=== PATIENT | female | born 1935 | race Caucasian/White ===

== ENCOUNTER 2017-12-20 16:51 | Emergency (ER) | payer MEDICARE, OTHER, SELFPAY ==
[2017-12-20 17:15] VITALS: BP 130/77; PULSE 68; RESP 20; TEMP 36.9; O2SAT 96
--- NOTE | 2017-12-20 17:27 | DI.RAD.S_ITS ---
PROCEDURE: XR CHEST 1V INDICATIONS: chest pain TECHNIQUE: One view of the chest was acquired. COMPARISON: Located Within [facility], , CHEST 2 VIEW, 09/05/2010, 13:48. FINDINGS: Surgical changes and devices: None. Lungs and pleura: No pleural effusions or pneumothorax. Lungs are clear. Mediastinum: Mediastinal contours appear normal. Heart size is normal. Bones and chest wall: No suspicious bony lesions. Overlying soft tissues appear unremarkable. IMPRESSION: No acute cardiopulmonary pathology. Dictated by: Lonny Reyes M.D. on 12/20/2017 at 18:27 Approved by: Lonny Reyes M.D. on 12/20/2017 at 18:27
[2017-12-20 17:35] LABS: Add Manual Diff / Slide Review NO; Basophils Percent Auto 0.9 % (0-2); Eosinophils Percent Auto 2.6 % (2-4); Hemoglobin 14.2 g/dL (12.0-16.0); Lymphocytes Percent Auto 28.6 % (25-40); Mean Corpuscular HGB Conc 33.9 % (30-36); Mean Corpuscular Hemoglobin 31.4 PG (26-34); Mean Corpuscular Volume 92.5 fL (80-100); Monocytes Percent Auto 8.2 % (3-14); Neutrophils Absolute Auto 3900 /uL (3000-5900); Neutrophils Percent Auto 59.7 % (50-75); Platelet Count 215 X10^3/uL (150-400); Red Blood Cell Count 4.54 X10^6/uL (4.0-5.2); Red Cell Distribution Width 12.8 % (11.6-14.8); White Blood Cell Count 6.6 X10^3/uL (4.5-11.0)
[2017-12-20 17:37] LABS: Prothrombin Time 10.8 SECONDS (10.1-12.7)
[2017-12-20 17:42] LABS: PTT Partial Thromboplastin Tim 29 SECONDS (26.4-36.2)
[2017-12-20 17:43] LABS: Alanine Aminotransferase 23 IU/L (9-52); Albumin 4.4 g/dL (3.5-5.0); Albumin Globulin Ratio 1.6 (1.0-2.8); Alkaline Phosphatase 54 U/L (38-126); Aspartate Aminotransferase 33 IU/L (14-36); BUN Creatinine Ratio 23.3 (6-22); Bilirubin Total 0.4 mg/dL (0.2-1.3); Blood Urea Nitrogen 21 mg/dL (7-17); Calcium 9.7 mg/dL (8.4-10.2); Carbon Dioxide 31 mmol/L (22-32); Chloride 104 mmol/L (98-107); Creatine Kinase 73 U/L (30-135); Estimated Glomerular Filt Rate 59.9 mL/min (>60); Globulin 2.7 g/dL (1.7-4.1); Glucose 92 mg/dL (80-110); HEMOLYSIS < 15 (0-50); Lipase 135 U/L (23-300); Potassium 4.4 mmol/L (3.4-5.1); Sodium 146 mmol/L (137-145); Total Protein 7.1 g/dL (6.3-8.2)
[2017-12-20 17:57] LABS: Troponin I < 0.012 ng/mL (0.01-0.034)
--- NOTE | 2017-12-20 18:31 | ED.CHESTPAIN ---
HPI - Chest Pain General Chief Complaint: Chest Pain Stated Complaint: CHEST PAINS Time Seen by Provider: 12/20/17 18:05 Source: patient and other (friend) Mode of arrival: ambulatory Limitations: no limitations History of Present Illness HPI narrative: This is an 82-year-old female comes to the emergency department with complaint of chest pain that occurred about 1 o'clock this afternoon. Patient states that she was doing dishes. With a sharp vicelike feeling that lasted just a couple seconds and then resolved. It has not returned. She has not had similar symptoms in the past. She did not have any other symptoms at the same time. She denies any diaphoresis, no lightheadedness, no presyncope or syncope. She denies any shortness of breath. She denies any radiation, migration of her pain. She is not having any head neck or back pain. She did not have any nausea or vomiting. No other GI symptoms. No urinary symptoms. Patient has had some heartburn in the past on and off but it felt completely different. She takes Effexor for depression and takes a baby aspirin once daily. She has a history of breast cancer 1992 that was treated and has had appendectomy and hysterectomy. She denies any prior visits to Cardiology, no prior stress test or heart catheterization. No tobacco use. Rare alcohol no illicit. MD complaint: chest pain Onset (ago): hour(s) Duration: improved Pain location: substernal Pain radiation: none Exacerbating factors: nothing Treatments prior to arrival chest pain: none Related Data Home Medications Medication Instructions Recorded Confirmed aspirin 81 mg PO DAILY #0 07/01/10 12/20/17 calcium carbonate-vitamin D3 600 mg PO TID #0 07/01/10 12/20/17 [Calcium 600 + D(3)] omega 7-nks-pfc-fish oil [Fish Oil] 1,000 iu PO TID #0 07/01/10 12/20/17 cholecalciferol (vitamin D3) 1 cap PO DAILY 12/20/17 12/20/17 [Vitamin D3] flaxseed oil 1 cap PO TID 12/20/17 12/20/17 venlafaxine 1 cap PO TID 12/20/17 12/20/17 Allergies Allergy/AdvReac Type Severity Reaction Status Date / Time No Known Drug Allergies Allergy Verified 12/20/17 17:41 Review of Systems Review of Systems All systems reviewed & are unremarkable except as noted in HPI and below Constitutional Denies chills, Denies fever(s), Denies lethargy and Denies weakness Cardiovascular Reports chest pain, Denies chest pain at rest, Reports chest pain with activity, Denies diaphoresis, Denies syncope, Denies pedal edema, Denies irregular heart rhythm, Denies lightheadedness, Denies radiating jaw, neck or arm pain, Denies palpitations and Denies dyspnea Respiratory Denies cough, Reports pain with cough and Denies dyspnea Gastrointestinal Gastrointestinal: Denies abdominal pain, Denies change in bowel habits, Reports heartburn (feels different from today), Denies diarrhea, Denies nausea and Denies vomiting Genitourinary Denies hematuria, Denies flank pain, Denies urinary incontinence and Denies urinary urgency Neurologic Denies syncope and Denies weakness Endocrine Denies palpitations PFSH Medical History Depression (Acute) H/O: hysterectomy (Acute) Surgical History Hx of appendectomy (Acute) Social History Smoking Status: Never smoker alcohol intake: current substance use type: does not use Exam Initial Vital Signs Initial Vital Signs: Vital Signs Temperature 98.4 F 12/20/17 17:15 Pulse Rate 68 12/20/17 17:15 Respiratory Rate 20 12/20/17 17:15 Blood Pressure 130/77 12/20/17 17:15 Pulse Oximetry 96 12/20/17 17:15 Const General: cooperative and well developed Nutritional Appearance: well nourished Orientation: alert, awake, oriented x3 and not confused Chest Chest: normal inspection of the chest Resp Effort & Inspection: normal respiratory effort, able to speak in complete sentences, no respiratory distress and no use of accessory muscles Auscultation: clear to auscultation bilaterally, no rales, no rhonchi and no wheezes Cardio Rate: regular rate Rhythm: regular rhythm Heart Sounds: S1 normal, S2 normal, no click, no gallops, no murmurs and no rubs Bruits: no abdominal aortic bruits Pulses: normal peripheral pulses GI Inspection: non-distended Palpation: soft, no hepatosplenomegaly, No guarding, hepatomegaly, No pulsatile mass and No tender Auscultation: normal bowel sounds Back/Spine/Pelvis Back: normal to inspection and No back tenderness Extrem Right lower extremity: normal to inspection and normal capillary refill; no cyanosis and no edema Left lower extremity: normal to inspection, full ROM and normal capillary refill; no cyanosis and no edema Scores HEART Score Heart Score history: Slightly Suspicious Heart Score EKG: Non-Specific repolarization disturbance Heart Score Age: > or = 65 years old Heart Score risk factors: No known risk factors Heart Score troponin: < or = to normal limit Heart Score Total: 3 Course Orders Ordered: ED Orders 12/20/17 19:20 Troponin I Stat Discontinued Medications Aspirin (Aspirin Chew) 243 mg PO NOW ONE Stop: 12/20/17 18:21 Last Admin: 12/20/17 18:34 Dose: 243 mg Reevaluation(s) Reevaluation #1: recheck, reviewed labs and CXR. Discussed plan follow-up for repeat troponin at 2:00 a.m. nedra. This would put patient full 6 hr after her onset of chest pain which has since resolved and has had no EKG changes and initial troponin was negative. Time: 18:40 Reevaluation #2: Continues to be chest pain free. Repeat troponin x 2 is negative. Time: 20:30 Vital Signs - 8 hr 12/20/17 20:52 Pulse Rate 63 Respiratory Rate 20 Blood Pressure 148/68 H Pulse Oximetry 95 MDM - Chest Pain Lab Data Attestation: I reviewed the patient's lab results. Result diagrams: 12/20/17 17:00 12/20/17 17:00 Lab Results 12/20/17 12/20/17 12/20/17 Range/Units 17:00 17:00 17:00 WBC 6.6 (4.5-11.0) X10^3/uL RBC 4.54 (4.0-5.2) X10^6/uL Hgb 14.2 (12.0-16.0) g/dL Hct 42.0 (36-46) % MCV 92.5 (80-100) fL MCH 31.4 (26-34) PG MCHC 33.9 (30-36) % RDW 12.8 (11.6-14.8) % Plt Count 215 (150-400) X10^3/uL Neut % (Auto) 59.7 (50-75) % Lymph % (Auto) 28.6 (25-40) % [place] % (Auto) 8.2 (3-14) % Eos % (Auto) 2.6 (2-4) % Baso % (Auto) 0.9 (0-2) % Neut # (Auto) 3900 (1907-0278) /uL PT 10.8 (10.1-12.7) SECONDS INR 1.0 (0.9-1.3) APTT 29 (26.4-36.2) SECONDS Sodium 146 H (137-145) mmol/L Potassium 4.4 (3.4-5.1) mmol/L Chloride 104 (98-107) mmol/L Carbon Dioxide 31 (22-32) mmol/L BUN 21 H (7-17) mg/dL Creatinine 0.90 (0.52-1.04) mg/dL Estimated GFR 59.9 L (>60) mL/min BUN/Creatinine Ratio 23.3 H (6-22) Glucose 92 (80-110) mg/dL Calcium 9.7 (8.4-10.2) mg/dL Total Bilirubin 0.4 (0.2-1.3) mg/dL AST 33 (14-36) IU/L ALT 23 (9-52) IU/L Alkaline Phosphatase 54 (38-126) U/L Total Creatine Kinase 73 (30-135) U/L Troponin I < 0.012 (0.01-0.034) ng/mL Total Protein 7.1 (6.3-8.2) g/dL Albumin 4.4 (3.5-5.0) g/dL Globulin 2.7 (1.7-4.1) g/dL Albumin/Globulin Ratio 1.6 (1.0-2.8) Lipase 135 (23-300) U/L 12/20/17 Range/Units 19:20 WBC (4.5-11.0) X10^3/uL RBC (4.0-5.2) X10^6/uL Hgb (12.0-16.0) g/dL Hct (36-46) % MCV (80-100) fL MCH (26-34) PG MCHC (30-36) % RDW (11.6-14.8) % Plt Count (150-400) X10^3/uL Neut % (Auto) (50-75) % Lymph % (Auto) (25-40) % [place] % (Auto) (3-14) % Eos % (Auto) (2-4) % Baso % (Auto) (0-2) % Neut # (Auto) (9340-3133) /uL PT (10.1-12.7) SECONDS INR (0.9-1.3) APTT (26.4-36.2) SECONDS Sodium (137-145) mmol/L Potassium (3.4-5.1) mmol/L Chloride (98-107) mmol/L Carbon Dioxide (22-32) mmol/L BUN (7-17) mg/dL Creatinine (0.52-1.04) mg/dL Estimated GFR (>60) mL/min BUN/Creatinine Ratio (6-22) Glucose (80-110) mg/dL Calcium (8.4-10.2) mg/dL Total Bilirubin (0.2-1.3) mg/dL AST (14-36) IU/L ALT (9-52) IU/L Alkaline Phosphatase (38-126) U/L Total Creatine Kinase (30-135) U/L Troponin I < 0.012 (0.01-0.034) ng/mL Total Protein (6.3-8.2) g/dL Albumin (3.5-5.0) g/dL Globulin (1.7-4.1) g/dL Albumin/Globulin Ratio (1.0-2.8) Lipase (23-300) U/L Imaging Data Chest x-ray: Radiologist's impression: [address] [address] XRay Report Signed Patient: Elzbieta Darby MMR#: [id number] : 1935cct:[id number] Age/Sex: 82 / FDate of Service: 12/20/17 Loc: ED Accession Number: [id number] Procedure: XR chest 1V Ordering Provider: Boubacar Ivan D.O. PROCEDURE: XR CHEST 1V INDICATIONS: chest pain TECHNIQUE: One view of the chest was acquired. COMPARISON: Located Within [facility], , CHEST 2 VIEW, 09/05/2010, 13:48. FINDINGS: Surgical changes and devices: None. Lungs and pleura: No pleural effusions or pneumothorax. Lungs are clear. Mediastinum: Mediastinal contours appear normal. Heart size is normal. Bones and chest wall: No suspicious bony lesions. Overlying soft tissues appear unremarkable. IMPRESSION: No acute cardiopulmonary pathology. Dictated by: Lonny Reyes M.D. on 12/20/2017 at 18:27 Approved by: Lonny Reyes M.D. on 12/20/2017 at 18:27 ECG Data Attestation: I personally reviewed and interpreted this ECG as follows: Prior ECG tracings: available for review (07/01/2010) Interpretation: Sinus rhythm with a rate of 69 P are of 202, QRS of 101 and QTC of 411. Nonspecific T-wave abnormalities. Q-wave in 3 and AVF. Patient has EKG from July 01, 2010 that has similar findings with Q-waves in 2 3 in AVF and nonspecific ST changes. MDM Narrative Medical decision making narrative: 82-year-old female comes in with complaint of few seconds of chest pain. Which shortly resolved. The patient has not had any additional symptoms since. She has nonspecific T-wave changes. She has minimal risk factor she does take an aspirin daily but otherwise no hypertension, dyslipidemia or other cardiac known issues. Patient had a troponin x2 that are negative. Discussed with patient and plan for discharge home for follow-up with primary care. Discharge Plan Departure Patient Disposition: Home Clinical Impression: Atypical chest pain Discharge Date/Time: 12/20/17 20:53 Interventions: ED Discharge Assessment Last Done: 12/20/17 20:52 Instructions: DI for Atypical Chest Pain Activity Restrictions/Additional Instructions: Follow-up with her primary care provider in the next 2-3 days for recheck. If you have recurrent or worsening symptoms return to the emergency department immediately for re-evaluation. Continue to take you're 81 mg aspirin daily. You may continue your home medications as prescribed. Prescriptions: No Action aspirin 81 mg Tablet,Chewable 81 mg PO DAILY Qty: 0 RF: 0 calcium carbonate-vitamin D3 [Calcium 600 + D(3)] 600 mg calcium- 200 unit Capsule 600 mg PO TID Qty: 0 RF: 0 omega 2-czz-nbd-fish oil [Fish Oil] 1,000 mg (120 mg-180 mg) Capsule 1,000 iu PO TID Qty: 0 RF: 0 venlafaxine 37.5 mg capsule,extended release 24hr 1 cap PO TID RF: 0 cholecalciferol (vitamin D3) [Vitamin D3] 2,000 unit Capsule 1 cap PO DAILY RF: 0 flaxseed oil 1,000 mg Capsule 1 cap PO TID RF: 0
[2017-12-20] MEDS: ASPIRIN 81 MG TAB 243 MG PO (18:34)
[2017-12-20 18:54] VITALS: BP 130/74; PULSE 63; RESP 21; O2SAT 95
[2017-12-20 19:53] LABS: Troponin I < 0.012 ng/mL (0.01-0.034)
[2017-12-20 20:52] VITALS: BP 148/68; PULSE 63; RESP 20; O2SAT 95
== END 2017-12-20 20:53 | disposition home or self-care (01) ==
PROVIDERS: Emergency Medicine; Emergency Provider Emergency Medicine; Family Provider Family Medicine; PCP Family Medicine
DX: R07.89 Other chest pain (principal)
CPT/HCPCS: 36591; 71045; 80053; 82550; 82553; 83690; 84484; 85025; 85610; 85730; 93005; 93010; 99283; 99285

== ENCOUNTER → 2018-01-13 11:35 | Outpatient (CLI) | payer MEDICARE, OTHER, SELFPAY ==
--- NOTE | 2018-01-13 | DI.MG.S_ITS ---
BILATERAL DIGITAL SCREENING MAMMOGRAM 3D/2D WITH CAD POST LUMPECTOMY: 01/13/2018 CLINICAL: Routine screening. Family history of breast cancer. Personal history of breast cancer. Comparison is made to exams dated: 01/05/2017 mammogram, 01/02/2016 mammogram, and 12/27/2014 mammogram - [facility]. The tissue of both breasts is heterogeneously dense. This may lower the sensitivity of mammography. Current study was also evaluated with a Computer Aided Detection (CAD) system. There are benign post operative findings in the left breast. There also are benign vascular calcifications and calcifications in both breasts. No significant masses, calcifications, or other findings are seen in either breast. There has been no significant interval change. IMPRESSION: There is no mammographic evidence of malignancy. A 1 year screening mammogram is recommended.(01/14/2019) This exam was interpreted at Station ID: [id number]. NOTE: For mammograms, a report in lay terms will be sent to the patient. Approximately 15% of breast malignancies will not be visualized mammographically. In the management of a palpable breast mass, a negative mammogram must not discourage biopsy of a clinically suspicious lesion. Electronically Signed By: Sourav mckee/nirali:01/13/2018 17:10:57 letter sent: Normal Exam ACR BI-RADS Category 2: Benign Finding(s) 3342F
== END ==
PROVIDERS: Family Provider Family Medicine; PCP Family Medicine; Visit Provider Family Medicine
DX: Z12.31 Encounter for screening mammogram for malignant neoplasm of breast (principal); Z85.3 Personal history of malignant neoplasm of breast; Z80.3 Family history of malignant neoplasm of breast
CPT/HCPCS: 77063; 77067

== ENCOUNTER → 2019-01-31 09:55 | Outpatient (CLI) | payer MEDICARE, OTHER, SELFPAY ==
--- NOTE | 2019-01-31 | DI.MG.S_ITS ---
BILATERAL DIGITAL SCREENING MAMMOGRAM 3D/2D WITH CAD POST LUMPECTOMY: 01/31/2019 CLINICAL: Routine screening. Family history of breast cancer. Comparison is made to exams dated: 01/13/2018 mammogram, 01/05/2017 mammogram, and 01/02/2016 mammogram - [facility]. The tissue of both breasts is heterogeneously dense. This may lower the sensitivity of mammography. Current study was also evaluated with a Computer Aided Detection (CAD) system. There are benign calcifications in both breasts. There also are benign vascular calcifications in both breasts. Additionally, there are benign post operative findings in the left breast. No significant masses, calcifications, or other findings are seen in either breast. There has been no significant interval change. IMPRESSION: There is no mammographic evidence of malignancy. A 1 year screening mammogram is recommended. This exam was interpreted at Station ID: [id number]. NOTE: For mammograms, a report in lay terms will be sent to the patient. Approximately 15% of breast malignancies will not be visualized mammographically. In the management of a palpable breast mass, a negative mammogram must not discourage biopsy of a clinically suspicious lesion. Electronically Signed By: Shayla mccarthy/nirali:01/31/2019 11:08:48 letter sent: Normal Exam ACR BI-RADS Category 2: Benign Finding(s) 3342F
== END ==
PROVIDERS: Family Provider Family Medicine; PCP Family Medicine; Visit Provider Family Medicine
DX: Z12.31 Encounter for screening mammogram for malignant neoplasm of breast (principal); Z80.3 Family history of malignant neoplasm of breast
CPT/HCPCS: 77063; 77067

== ENCOUNTER → 2019-02-06 14:17 | Outpatient (CLI) | payer MEDICARE, OTHER, SELFPAY ==
--- NOTE | 2019-02-06 | DI.RAD.S_ITS ---
PROCEDURE: XR CERVICAL SPINE 2V OR 3V INDICATIONS: NECK PAIN TECHNIQUE: 3 view(s) of the cervical spine were acquired. COMPARISON: [facility], CERVICAL SPINE 2 OR 3 VIEWS, 04/23/2017, 16:43. FINDINGS: Bones: No fractures or dislocations to the C7 level. The lateral masses of C1 appear intact on the odontoid view. No suspicious bony lesions. Straightening of the normal lordotic curvature. Trace anterolisthesis of C7 on T1 Multilevel degenerative endplate sclerosis and spurring. Diffuse facet arthropathy. Moderate to severe narrowing of the C4-C5, C5-C6 and C6-C7 disc spaces. Soft tissues: No prevertebral soft tissue swelling. IMPRESSION: Multilevel cervical spondylosis, most pronounced at C4-C5, C5-C6 and C6-C7. Overall, no definite interval change since 04/23/17. Dictated by: Mychal Tony M.D. on 02/06/2019 at 16:01 Approved by: Mychal Tony M.D. on 02/06/2019 at 16:03
== END ==
PROVIDERS: PCP Family Medicine; Visit Provider Family Medicine
DX: M54.2 Cervicalgia (principal); M47.812 Spondylosis without myelopathy or radiculopathy, cervical region
CPT/HCPCS: 72040

== ENCOUNTER → 2019-05-11 13:01 | Outpatient (CLI) | payer MEDICARE, OTHER, SELFPAY | PROVIDERS: PCP Family Medicine; Visit Provider Family Medicine | DX: M81.0 Age-related osteoporosis without current pathological fracture (principal); Z78.0 Asymptomatic menopausal state; Z85.3 Personal history of malignant neoplasm of breast; Z87.891 Personal history of nicotine dependence | CPT/HCPCS: 77080 ==

== ENCOUNTER → 2020-02-02 11:50 | Outpatient (CLI) | payer MEDICARE, OTHER, SELFPAY ==
--- NOTE | 2020-02-02 | DI.MG.S_ITS ---
BILATERAL DIGITAL SCREENING MAMMOGRAM 3D/2D WITH CAD: 02/02/2020 CLINICAL: Routine screening. Personal history of left breast cancer. Family history of breast cancer. Comparison is made to exams dated: 01/31/2019 mammogram, 01/13/2018 mammogram, and 01/05/2017 mammogram - [facility]. The tissue of both breasts is heterogeneously dense. This may lower the sensitivity of mammography. Current study was also evaluated with a Computer Aided Detection (CAD) system. There is a focal asymmetry in the right breast at 12 o'clock middle depth. No other significant masses, calcifications, or other findings are seen in either breast. IMPRESSION: INCOMPLETE: NEEDS ADDITIONAL IMAGING EVALUATION The focal asymmetry in the right breast is indeterminate. Additional views with possible ultrasound are recommended. This exam was interpreted at Station ID: [id number]. NOTE: For mammograms, a report in lay terms will be sent to the patient. Approximately 15% of breast malignancies will not be visualized mammographically. In the management of a palpable breast mass, a negative mammogram must not discourage biopsy of a clinically suspicious lesion. Electronically Signed By: Shayla mccarthy/:02/02/2020 12:43:21 letter sent: Additional Imaging Needed ACR BI-RADS Category 0: Incomplete 3340F
== END ==
PROVIDERS: PCP Family Medicine; Referring Provider Family Medicine; Visit Provider Family Medicine
DX: Z12.31 Encounter for screening mammogram for malignant neoplasm of breast (principal); Z85.3 Personal history of malignant neoplasm of breast; Z80.3 Family history of malignant neoplasm of breast
CPT/HCPCS: 77063; 77067

== ENCOUNTER → 2020-02-28 12:22 | Outpatient (CLI) | payer MEDICARE, OTHER, SELFPAY ==
--- NOTE | 2020-02-28 | DI.MG.S_ITS ---
UNILATERAL RIGHT DIGITAL DIAGNOSTIC MAMMOGRAM 3D/2D WITH ADDITIONAL VIEWS: 02/28/2020 CLINICAL: Additional evaluation requested from prior study. Comparison is made to exams dated: 02/02/2020 mammogram, 01/31/2019 mammogram, and 01/13/2018 mammogram - [facility]. The tissue of right breast is heterogeneously dense. This may lower the sensitivity of mammography. The previously seen focal asymmetry in the right breast disperses on spot compression views, compatible with normal fibroglandular breast tissue. No significant masses, calcifications, or other findings are seen in the breast. IMPRESSION: NEGATIVE There is no mammographic evidence of malignancy. A 1 year screening mammogram is recommended. This exam was interpreted at Station ID: [id number]. NOTE: For mammograms, a report in lay terms will be sent to the patient. Approximately 15% of breast malignancies will not be visualized mammographically. In the management of a palpable breast mass, a negative mammogram must not discourage biopsy of a clinically suspicious lesion. Electronically Signed By: Quinton hope/nirali:02/28/2020 13:25:24 letter sent: Normal Exam ACR BI-RADS Category 1: Negative 3341F
== END ==
PROVIDERS: PCP Family Medicine; Referring Provider Family Medicine; Visit Provider Family Medicine
DX: R92.8 Other abnormal and inconclusive findings on diagnostic imaging of breast (principal)
CPT/HCPCS: 77065; G0279

== ENCOUNTER 2020-11-11 11:20 | Inpatient (IN) | payer MEDICARE, OTHER, SELFPAY ==
[2020-11-11] VITALS (13 sets, daily range): BP systolic 101–172; BP diastolic 51–93; PULSE 74–101; RESP 12–29; TEMP 36.2–37.3; O2SAT 90–100; BMI 19.5
--- NOTE | 2020-11-11 12:05 | DI.RAD.S_ITS ---
PROCEDURE: XR CHEST 1V INDICATIONS: chest pain TECHNIQUE: One view of the chest was acquired. COMPARISON: [facility], CR, XR CHEST 1V, 12/20/2017, 18:04. FINDINGS: Surgical changes and devices: None. Lungs and pleura: Lungs are clear. No pleural effusions or pneumothorax. Mediastinum: Mediastinal contours appear normal. Heart size is normal. Bones and chest wall: No suspicious bony lesions. Overlying soft tissues appear unremarkable. IMPRESSION: No acute cardiopulmonary disease process. Dictated by: Leatha Pulido MD, PhD on 11/11/2020 at 12:41 Approved by: Leatha Pulido MD, PhD on 11/11/2020 at 12:41
[2020-11-11 12:18] LABS: Basophils Absolute Auto 0 /uL (0-100); Basophils Percent Auto 0.3 % (0-2); Eosinophils Absolute Auto 0 /uL (0-450); Lymphocytes Absolute Auto 1000 /uL (1100-4500); Lymphocytes Percent Auto 6.3 % (25-40); Mean Corpuscular Volume 93.7 fL (80-100); Monocytes Absolute Auto 500 /uL (0-900); Monocytes Percent Auto 3.1 % (3-14); Neutrophils Absolute Auto 14600 /uL (1500-7000); Neutrophils Percent Auto 90.3 % (50-75); Platelet Count 219 X10^3/uL (150-400); Red Blood Cell Count 1.72 X10^6/uL (4.0-5.2); Red Cell Distribution Width 18.1 % (11.6-14.8); White Blood Cell Count 16.2 X10^3/uL (4.5-11.0)
[2020-11-11 12:20] LABS: Hematocrit 16.1 % (36-46); Hemoglobin 5.1 g/dL (12.0-16.0)
[2020-11-11 12:22] LABS: Alanine Aminotransferase 16 IU/L (<35); Albumin 3.1 g/dL (3.5-5.0); Albumin Globulin Ratio 1.3 (1.0-2.8); Alkaline Phosphatase 48 U/L (38-126); Aspartate Aminotransferase 23 IU/L (14-36); BUN Creatinine Ratio 51.9 (6-22); Bilirubin Total 0.2 mg/dL (0.2-1.3); Blood Urea Nitrogen 41 mg/dL (7-17); Calcium 8.2 mg/dL (8.4-10.2); Carbon Dioxide 19 mmol/L (22-32); Chloride 112 mmol/L (98-107); Creatine Kinase 32 U/L (30-135); Estimated Glomerular Filt Rate > 60.0 mL/min (>60); Globulin 2.3 g/dL (1.7-4.1); Glucose 198 mg/dL (80-110); HEMOLYSIS < 15 (0-50); Lipase 545 U/L (23-300); Potassium 4.2 mmol/L (3.4-5.1); Sodium 139 mmol/L (137-145); Total Protein 5.4 g/dL (6.3-8.2)
--- NOTE | 2020-11-11 12:28 | ED.DIZZY ---
HPI - Dizziness General Chief Complaint: Dizziness Stated Complaint: having falls, shaky, sweaty Time Seen by Provider: 11/11/20 12:28 Source: patient and family (son) Mode of arrival: Wheelchair Limitations: no limitations History of Present Illness HPI Narrative: This is an 85-year-old female comes emergency department feeling lightheaded and shaky particularly since Wednesday. She did have a fall and hit her head. She does take aspirin 81 mg. She saw her primary care who thought she had vertigo and started on some medication. Patient has had some nausea but no vomiting. Some mild headaches. She has felt short of breath. She denies any chest pain or pressure. She denies any abdominal pain. Patient has had black stools for several months. She is not appreciate any bright red blood. She denies any urinary symptoms but did have a UTI about a month ago. She denies any daily thinners. She is on Effexor as well as quetiapine and daily vitamins. 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 She also has a history of breast cancer. She believes she had either EGD or colonoscopy in the last 5 years. No tobacco, she quit drinking any alcohol but was moderate her usage 4 months ago. No illicit. Dr. Villegas is her PCP. Related Data Home Medications Medication Instructions Recorded Confirmed aspirin 81 mg chewable tablet 81 mg PO DAILY #0 07/01/10 11/11/20 calcium carbonate-vitamin D3 600 600 mg PO TID #0 07/01/10 11/11/20 mg calcium-200 unit capsule (Calcium 600 + D(3)) omega 6-jjg-qop-fish oil 1,000 mg 1,000 iu PO TID #0 07/01/10 11/11/20 (120 mg-180 mg) capsule (Fish Oil) cholecalciferol (vitamin D3) 50 1 cap PO DAILY 12/20/17 11/11/20 mcg (2,000 unit) capsule (Vitamin D3) flaxseed oil 1,000 mg capsule 1 cap PO TID 12/20/17 11/11/20 omeprazole 20 mg capsule,delayed 40 mg PO DAILY 12/31/17 11/11/20 release quetiapine 25 mg tablet 25 mg PO DAILY 12/31/17 11/11/20 venlafaxine 37.5 mg 150 mg PO QAM cap 12/31/17 11/11/20 capsule,extended release 24 hr Allergies Allergy/AdvReac Type Severity Reaction Status Date / Time No Known Drug Allergies Allergy Verified 11/11/20 11:44 Review of Systems Review of Systems ROS Unobtainable: All systems reviewed & are unremarkable except as noted in HPI and below Patient History Medical History Depression Surgical History H/O: hysterectomy Hx of appendectomy Social History household members: none Smoking Status: Former smoker alcohol intake: current substance use type: does not use Smoking Status: Former smoker Substance Use Type: does not use Exam Narrative Exam Narrative: GENERAL: Alert and oriented x three, anxious appearing female in mild distress. HEENT: Head normocephalic, atraumatic, EOMI, pupils reactive, patient has pale conjunctiva bilaterally, face symmetric, moist mucous membranes NECK: Supple, full range of motion CARDIOVASCULAR: Regular rate and rhythm without murmurs, rubs or gallops. No JVD. RESPIRATORY: Breath sounds equal bilaterally, no wheezes rales or rhonchi. No tachypnea. ABDOMEN: Soft, nontender. Normoactive bowel sounds all 4 quadrants. No guarding or rebound, rigidity, no mass, patient has a small hemorrhoid which is soft and nontender. Patient has a small amount of stool on guaiac with no other masses appreciated. Patient is stool occult positive. : No CVA tenderness EXTREMITIES: Normal range of motion, no clubbing or edema. Neurovascularly intact NEUROLOGICAL: Cranial nerves II through XII grossly intact. Moving all extremities SKIN: Warm, dry, no petechiae, no rashes or lesions. Initial Vital Signs Initial Vital Signs: Vital Signs Temperature 97.8 F 11/11/20 11:38 Pulse Rate 101 H 11/11/20 11:38 Respiratory Rate 12 11/11/20 11:38 Blood Pressure 172/93 H 11/11/20 11:38 Pulse Oximetry 93 11/11/20 11:38 Course Orders Ordered: ED Orders 11/11/20 11:44 EKG-12 Lead Stat 11/11/20 12:00 Complete Blood Count AUTO DIFF Stat Comprehensive Metabolic Panel Stat Lipase Stat Partial Thromboplastin Time Stat Prothrombin Time INR Stat Troponin & CK Cardiac Panel Stat 11/11/20 12:05 XR chest 1V Stat 11/11/20 12:20 Urinalysis and Microscopic Stat 11/11/20 12:33 Packed Cells Stat Type and Screen Stat 11/11/20 12:57 CT head/brain wo con Stat 11/11/20 13:30 COVID19 - ADMIT (FLAP MAKER swab/PCR) Stat Acetaminophen (Acetaminophen 325 Mg Tablet) 650 mg PO Q6HR ERNESTO Lactated Ringer's (Lactated Ringers) 1,000 mls @ 100 mls/hr IV CONT ERNESOT Naloxone HCl (Naloxone 0.4 Mg/Ml Vial) 0.2 mg IV Q2MIN PRN PRN Reason: Opiate Reversal Ondansetron HCl (Ondansetron 4 Mg/2 Ml Inj) 4 mg IV Q8HR PRN PRN Reason: Nausea And Vomiting Pantoprazole Sodium (Pantoprazole 40 Mg Vial) 40 mg IV DAILY [facility] Quetiapine Fumarate (Quetiapine 25 Mg Tablet) 25 mg PO BID ERNESTO Venlafaxine HCl (Venlafaxine Er 75 Mg Cap) 150 mg PO DAILY [facility] Last Admin: 11/11/20 15:28 Dose: Not Given Documented by: EJ Discontinued Medications Lorazepam (Lorazepam 0.5 Mg Tablet) 0.5 mg PO NOW ONE Stop: 11/11/20 12:59 Last Admin: 11/11/20 13:19 Dose: 0.5 mg Documented by: ATAYLOR Pantoprazole Sodium (Pantoprazole 40 Mg Vial) 80 mg IV NOW ONE Stop: 11/11/20 12:59 Last Admin: 11/11/20 13:19 Dose: 80 mg Documented by: ATAYLOR Consultations Consultation #1: Spoke with Dr. Mcclendon accepts for admission. Awaiting head CT is patient did have a fall in the last week. If this is negative plan for admission. Patient has been given Protonix 2 units are ordered for transfusion which patient is agreeable to and consultation to General surgery is pending Consultation #2: Dr. Shea, for General surgery. He is happy to consult with the patient. Case was reviewed. Vital Signs Vital signs: Vital Signs - 8 hr 11/11/20 11:38 11/11/20 12:31 11/11/20 13:00 Temperature 97.8 F Pulse Rate 101 H 95 H 93 H Respiratory Rate 12 20 27 H Blood Pressure 172/93 H Pulse Oximetry 93 99 90 L MDM - Dizziness Lab Data Result diagrams: 11/11/20 12:00 11/11/20 12:00 Labs: Lab Results 11/11/20 11/11/20 11/11/20 Range/Units 12:00 12:00 12:00 WBC 16.2 H (4.5-11.0) X10^3/uL RBC 1.72 L (4.0-5.2) X10^6/uL Hgb 5.1 L* (12.0-16.0) g/dL Hct 16.1 L* (36-46) % MCV 93.7 (80-100) fL MCH 30.0 (26-34) PG MCHC 32.0 (30-36) % RDW 18.1 H (11.6-14.8) % Plt Count 219 (150-400) X10^3/uL Neut % (Auto) 90.3 H (50-75) % Lymph % (Auto) 6.3 L (25-40) % [place] % (Auto) 3.1 (3-14) % Eos % (Auto) 0.0 L (2-4) % Baso % (Auto) 0.3 (0-2) % Neut # (Auto) 68644 H (3992-2479) /uL Lymph # (Auto) 1000 L (2062-0363) /uL [place] # (Auto) 500 (0-900) /uL Eos # (Auto) 0 (0-450) /uL Baso # (Auto) 0 (0-100) /uL PT 12.2 (10.1-12.7) SECONDS INR 1.1 (0.9-1.3) APTT 24 L D (26.4-36.2) SECONDS Sodium 139 (137-145) mmol/L Potassium 4.2 (3.4-5.1) mmol/L Chloride 112 H (98-107) mmol/L Carbon Dioxide 19 L (22-32) mmol/L BUN 41 H (7-17) mg/dL Creatinine 0.79 (0.52-1.04) mg/dL Estimated GFR > 60.0 (>60) mL/min BUN/Creatinine Ratio 51.9 H (6-22) Glucose 198 H (80-110) mg/dL Calcium 8.2 L (8.4-10.2) mg/dL Total Bilirubin 0.2 (0.2-1.3) mg/dL AST 23 (14-36) IU/L ALT 16 (<35) IU/L Alkaline Phosphatase 48 (38-126) U/L Total Creatine Kinase 32 (30-135) U/L CK-MB (CK-2) TNP CK-MB (CK-2) Rel Index TNP Troponin I < 0.012 (0.01-0.034) ng/mL Total Protein 5.4 L (6.3-8.2) g/dL Albumin 3.1 L (3.5-5.0) g/dL Globulin 2.3 (1.7-4.1) g/dL Albumin/Globulin Ratio 1.3 (1.0-2.8) Lipase 545 H (23-300) U/L Blood Type Antibody Screen Crossmatch 11/11/20 Range/Units 12:33 WBC (4.5-11.0) X10^3/uL RBC (4.0-5.2) X10^6/uL Hgb (12.0-16.0) g/dL Hct (36-46) % MCV (80-100) fL MCH (26-34) PG MCHC (30-36) % RDW (11.6-14.8) % Plt Count (150-400) X10^3/uL Neut % (Auto) (50-75) % Lymph % (Auto) (25-40) % [place] % (Auto) (3-14) % Eos % (Auto) (2-4) % Baso % (Auto) (0-2) % Neut # (Auto) (9675-5680) /uL Lymph # (Auto) (1256-2247) /uL [place] # (Auto) (0-900) /uL Eos # (Auto) (0-450) /uL Baso # (Auto) (0-100) /uL PT (10.1-12.7) SECONDS INR (0.9-1.3) APTT (26.4-36.2) SECONDS Sodium (137-145) mmol/L Potassium (3.4-5.1) mmol/L Chloride (98-107) mmol/L Carbon Dioxide (22-32) mmol/L BUN (7-17) mg/dL Creatinine (0.52-1.04) mg/dL Estimated GFR (>60) mL/min BUN/Creatinine Ratio (6-22) Glucose (80-110) mg/dL Calcium (8.4-10.2) mg/dL Total Bilirubin (0.2-1.3) mg/dL AST (14-36) IU/L ALT (<35) IU/L Alkaline Phosphatase (38-126) U/L Total Creatine Kinase (30-135) U/L CK-MB (CK-2) CK-MB (CK-2) Rel Index Troponin I (0.01-0.034) ng/mL Total Protein (6.3-8.2) g/dL Albumin (3.5-5.0) g/dL Globulin (1.7-4.1) g/dL Albumin/Globulin Ratio (1.0-2.8) Lipase (23-300) U/L Blood Type O Positive Antibody Screen Negative Crossmatch See Detail Imaging Data CT scan - head: Radiologist's Impression: [address] Scan ReportSigned Patient: Elzbieta Darby [facility]#: [id number]: 6Acct:[id number]/Sex: 85 / FDate of Service: 11/11/20Loc: [id number] Number: [id number] Procedure: CT head/brain wo con Ordering Provider: Diana Mccauley D.O. PROCEDURE: CT HEAD/BRAIN WO CON INDICATIONS: fall on asa TECHNIQUE: Noncontrast 4.5 mm thick angled axial sections acquired from the foramen magnum to the vertex, with coronal and sagittal reformats. For radiation dose reduction, the following was used: automated exposure control, adjustment of mA and/or kV according to patient size. COMPARISON: [facility], CT, HEAD WITHOUT CONTRAST, 07/23/2011, 10:21. FINDINGS: Image quality: Excellent. CSF spaces: Basal cisterns are patent. No extra-axial fluid collections. The ventricles are symmetric in size and shape. Brain: No intracranial bleeds or masses. There is cerebral volume loss for age, with resultant ventricular and sulcal prominence. There are periventricular and deep white matter chronic small vessel ischemic changes. There is intracranial internal carotid artery atherosclerosis. Skull and face: Calvarium and visualized facial bones appear intact, without suspicious lesions. 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 Sinuses: Visualized sinuses and mastoids are clear. IMPRESSION: No acute intracranial finding. Dictated by: Jose Blackwell M.D. on 11/11/2020 at 13:27 Approved by: Jose Blackwell M.D. on 11/11/2020 at 13:29 Chest x-ray: Radiologist's Impression: [address] [id number] ReportSigned Patient: Elzbieta Darby MMR#: [id number]: 6Acct:[id number]/Sex: 85 / FDate of Service: 11/11/20Loc: EDAccession Number: [id number] Procedure: XR chest 1V Ordering Provider: Diana Mccauley D.O. PROCEDURE: XR CHEST 1V INDICATIONS: chest pain TECHNIQUE: One view of the chest was acquired. COMPARISON: [facility], , XR CHEST 1V, 12/20/2017, 18:04. FINDINGS: Surgical changes and devices: None. Lungs and pleura: Lungs are clear. No pleural effusions or pneumothorax. Mediastinum: Mediastinal contours appear normal. Heart size is normal. Bones and chest wall: No suspicious bony lesions. Overlying soft tissues appear unremarkable. IMPRESSION: No acute cardiopulmonary disease process. Dictated by: Leatha Pulido MD, PhD on 11/11/2020 at 12:41 Approved by: Leatha Pulido MD, PhD on 11/11/2020 at 12:41 ECG Data Interpretation: Sinus rhythm rate 90 7p are 156 QRS 76 and QTC of 480. No acute ST elevation. Nonspecific change but patient has some depression in V3 through V6. Patient has prior EKG from December 2017 and does appear to have some MDM Narrative Medical decision making narrative: Female comes to the emergency department with lightheadedness and shakiness with near-syncope. Patient was found to have hemoglobin of 5 her last comparison was normal in 2018. After discussion she has had black stools for some time and likely has had a slow GI bleed. Patient does have some EKG change but negative troponin with no other symptoms such as chest pain. She has had some shortness of breath. Patient's was transfused here in the supervisor partial denture department CT was ordered as she has hit her head and there was some confusion about whether she takes an aspirin daily. Patient was accepted by Dr. Mcclendon and consultation is planned with Dr. Shea who has been notified. Critical Care Time Critical Care Time Critical Care Time: Yes Total Critical Care Time: 45 Attestation: The high probability of a clinically significant, sudden or life threatening deterioration of the [] system(s) required my full and direct attention, intervention and personal management. The aggregate critical care time was [45] minutes. This time is in addition to time spent performing reported procedures but includes the following: [x] Data Review and interpretation [x] Patient assessment and monitoring of vital signs [x] Documentation [x] Medication orders and management Discharge Plan Departure Patient Disposition: Admitted As Inpatient Clinical Impression: GI bleed Admit Date/Time: 11/11/20 13:12 Admit Provider: Osman Mcclendon
[2020-11-11 12:30] LABS: INR 1.1 (0.9-1.3); Prothrombin Time 12.2 SECONDS (10.1-12.7)
[2020-11-11 12:33] LABS: PTT Partial Thromboplastin Tim 24 SECONDS (26.4-36.2)
[2020-11-11 12:34] LABS: Troponin I < 0.012 ng/mL (0.01-0.034)
--- NOTE | 2020-11-11 12:57 | DI.CT.S_ITS ---
PROCEDURE: CT HEAD/BRAIN WO CON INDICATIONS: fall on asa TECHNIQUE: Noncontrast 4.5 mm thick angled axial sections acquired from the foramen magnum to the vertex, with coronal and sagittal reformats. For radiation dose reduction, the following was used: automated exposure control, adjustment of mA and/or kV according to patient size. COMPARISON: [facility], CT, HEAD WITHOUT CONTRAST, 07/23/2011, 10:21. FINDINGS: Image quality: Excellent. CSF spaces: Basal cisterns are patent. No extra-axial fluid collections. The ventricles are symmetric in size and shape. Brain: No intracranial bleeds or masses. There is cerebral volume loss for age, with resultant ventricular and sulcal prominence. There are periventricular and deep white matter chronic small vessel ischemic changes. There is intracranial internal carotid artery atherosclerosis. Skull and face: Calvarium and visualized facial bones appear intact, without suspicious lesions. 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 Sinuses: Visualized sinuses and mastoids are clear. IMPRESSION: No acute intracranial finding. Dictated by: Jose Balckwell M.D. on 11/11/2020 at 13:27 Approved by: Jose Blackwell M.D. on 11/11/2020 at 13:29
--- NOTE | 2020-11-11 12:57 | PC.NURSE ---
Blood transfusion consent signed and on the chart.
[2020-11-11 13:04] LABS: Add Manual Diff / Slide Review NO
[2020-11-11] MEDS: PANTOPRAZOLE 40 MG VIAL 80 MG IV (13:19)
[2020-11-11] MEDS: LORazepam 0.5 MG TABLET PO (13:19)
[2020-11-11 14:25] LABS: COVID19 - ADMIT (NP swab/PCR) Negative (Negative)
--- NOTE | 2020-11-11 15:17 | PC.NURSE ---
Admit note: Patient admitted to room 224, awake, alert, and pleasantly calm. Required to be transferred via slider board due to generalized weakness. No C/O dizziness or pain. Received with 1 unit of PRBC transfusing to left AC. VSS and afebrile. Oriented to room, environment, and plan of care. High fall precautions initiated. Tele and SCDs placed on arrival, remains NPO (awaiting general surgery consult). Report given to oncoming RN Nica, notified regarding need for U/A and Occult blood as it becomes available.
--- NOTE | 2020-11-11 17:41 | P.CONS_ITS ---
History of Present Illness Consult details Date Patient Seen: 11/11/20 Time Patient Seen: 17:41 Chief complaint: having falls, shaky, sweaty Narrative: 85-year-old female on aspirin admitted for anemia. She was feeling lightheaded and dizzy with associated epigastric discomfort, in the emergency room HGB 5 from 14 several years ago. Describes melanotic stools no bright red blood per rectum no history of peptic ulcer disease, diverticulosis or intestinal malignancy mild nausea no hematemesis. Reports having a normal colonoscopy within the past 5 years, no prior EGD. Currently receiving 1 unit of packed red blood cells with plan for 2nd. Meds Home Medications and Allergies Home Medications Medication Instructions Recorded Confirmed Type aspirin 81 mg chewable tablet 81 mg PO DAILY #0 07/01/10 11/11/20 History calcium carbonate-vitamin D3 600 600 mg PO TID #0 07/01/10 11/11/20 History mg calcium-200 unit capsule (Calcium 600 + D(3)) omega 2-woo-rhs-fish oil 1,000 mg 1,000 iu PO TID #0 07/01/10 11/11/20 History (120 mg-180 mg) capsule (Fish Oil) cholecalciferol (vitamin D3) 50 1 cap PO DAILY 12/20/17 11/11/20 History mcg (2,000 unit) capsule (Vitamin D3) flaxseed oil 1,000 mg capsule 1 cap PO TID 12/20/17 11/11/20 History omeprazole 20 mg capsule,delayed 40 mg PO DAILY 12/31/17 11/11/20 History release quetiapine 25 mg tablet 25 mg PO DAILY 12/31/17 11/11/20 History venlafaxine 37.5 mg 150 mg PO QAM cap 12/31/17 11/11/20 History capsule,extended release 24 hr Allergies Allergy/AdvReac Type Severity Reaction Status Date / Time No Known Drug Allergies Allergy Verified 11/11/20 11:44 Review of Systems Review of Systems ROS: Yes All systems reviewed with the patient and are negative except as otherwise documented Exam Vital Signs (past 8 hours): - 11/11/20 11:38 11/11/20 12:31 11/11/20 13:00 Temperature 97.8 F Pulse Rate 101 H 95 H 93 H Respiratory Rate 12 20 27 H Blood Pressure 172/93 H Pulse Oximetry 93 99 90 L 11/11/20 13:30 11/11/20 14:00 11/11/20 14:01 Temperature Pulse Rate 87 82 80 Respiratory Rate 22 27 H 29 H Blood Pressure 123/58 L 101/61 111/54 L Pulse Oximetry 100 100 11/11/20 14:03 11/11/20 14:20 11/11/20 15:02 Temperature 98.1 F 98 F 97.2 F L Pulse Rate 79 83 81 Respiratory Rate 16 20 19 Blood Pressure 111/54 L 114/53 L 123/66 Pulse Oximetry 100 Oxygen Delivery Method Room Air Narrative Exam Narrative: GENERAL-well developed elderly woman no acute distress HEENT-no scleral icterus, hearing intact NECK-no JVD, trachea midline CVS- regular rate, no peripheral edema RESP-unlabored respiratory effort, no audible wheezing GI-soft, mild epigastric tenderness MSK-no cyanosis or clubbing, extremities without deformity SKIN-warm, dry NEURO-alert and oriented, no focal deficits PYSCH-Appropriate mood and affect Objective Labs Result Diagrams: 11/11/20 12:00 11/11/20 12:00 Labs: Laboratory Results - last 24 hr 11/11/20 11/11/20 11/11/20 12:00 12:00 12:00 WBC 16.2 H RBC 1.72 L Hgb 5.1 L* Hct 16.1 L* MCV 93.7 MCH 30.0 MCHC 32.0 RDW 18.1 H Plt Count 219 Neut % (Auto) 90.3 H Lymph % (Auto) 6.3 L [place] % (Auto) 3.1 Eos % (Auto) 0.0 L Baso % (Auto) 0.3 Neut # (Auto) 84539 H Lymph # (Auto) 1000 L [place] # (Auto) 500 Eos # (Auto) 0 Baso # (Auto) 0 PT 12.2 INR 1.1 APTT 24 L D Sodium 139 Potassium 4.2 Chloride 112 H Carbon Dioxide 19 L BUN 41 H Creatinine 0.79 Estimated GFR > 60.0 BUN/Creatinine Ratio 51.9 H Glucose 198 H Calcium 8.2 L Total Bilirubin 0.2 AST 23 ALT 16 Alkaline Phosphatase 48 Total Creatine Kinase 32 CK-MB (CK-2) TNP CK-MB (CK-2) Rel Index TNP Troponin I < 0.012 Total Protein 5.4 L Albumin 3.1 L Globulin 2.3 Albumin/Globulin Ratio 1.3 Lipase 545 H SARS-CoV-2 (PCR) Blood Type Antibody Screen Crossmatch 11/11/20 11/11/20 12:33 13:30 WBC RBC Hgb Hct MCV MCH MCHC RDW Plt Count Neut % (Auto) Lymph % (Auto) [place] % (Auto) Eos % (Auto) Baso % (Auto) Neut # (Auto) Lymph # (Auto) [place] # (Auto) Eos # (Auto) Baso # (Auto) PT INR APTT Sodium Potassium Chloride Carbon Dioxide BUN Creatinine Estimated GFR BUN/Creatinine Ratio Glucose Calcium Total Bilirubin AST ALT Alkaline Phosphatase Total Creatine Kinase CK-MB (CK-2) CK-MB (CK-2) Rel Index Troponin I Total Protein Albumin Globulin Albumin/Globulin Ratio Lipase SARS-CoV-2 (PCR) Negative Blood Type O Positive Antibody Screen Negative Crossmatch See Detail Assessment & Plan Assessment and plan (1) GI bleed: Status: Acute Assessment & Plan narrative: 85-year-old female on aspirin admitted with GI bleed hemodynamically stable. Initial Hgb 5 baseline 14, having melanotic stool. Presumed upper source. -clear liquid diet NPO after midnight -transfuse as needed -plan for EGD tomorrow with anaesthesia provider. If no source identified, prep for colonoscopy
--- NOTE | 2020-11-11 19:25 | PM.HP.1 ---
History of Present Illness History of Present Illness Date Patient Seen: 11/11/20 Time Patient Seen: 12:45 Chief complaint: having falls, shaky, sweaty Narrative: Patient is a 85-year-old female well known to Dr. Villegas who presents for evaluation of dizziness and lightheadedness. Apparently patient is been slowly feeling dizzy and lightheaded over period of time. Fatigued. No other changes. Patient has noted she had black tarry stools maybe the last month it is really unclear. She was seen I guess on Wednesday at a urgent care center in [place] and was told she had labyrinthitis. She progressed through the weekend until she could hardly get up out of bed. She has had no chest pain. No shortness of breath. No abdominal pain. She does not have any change in bowel movements except with her black tarry stools. She has had no other significant change no fevers no chills no urinary symptoms. No nausea or vomiting. She has not been eating as well she has been in the past. Apparently she has been losing some weight. According to her son. But there has been no other changes. She had a normal colonoscopy 5 years ago no other significant problem. Past medical history is significant for anxiety, hyperlipidemia dyspepsia, breast cancer status post left lumpectomy with treatment with radiation and tamoxifen, Past surgical history total hysterectomy with BSO secondary to fibroids, polypectomy, left lumpectomy, appendectomy Family history: Father with heart disease, 2 brothers with cancer of unknown etiology in the 80s Social history: . Good family support. Patient History Medical History Depression Surgical History H/O: hysterectomy Hx of appendectomy Family & Social History Social History: household members none Prior Living Arrangements House Safety & Behavioral: Feels Safe in Current Yes Environment Been Physically Hurt or No Threatened By a Person Tobacco & Substance use: Smoking Status Former smoker alcohol intake current Substance Use Type does not use Meds Home Medications and Allergies Home Medications Medication Instructions Recorded Confirmed Type aspirin 81 mg chewable tablet 81 mg PO DAILY #0 07/01/10 11/11/20 History calcium carbonate-vitamin D3 600 600 mg PO TID #0 07/01/10 11/11/20 History mg calcium-200 unit capsule (Calcium 600 + D(3)) omega 3-uyt-ieh-fish oil 1,000 mg 1,000 iu PO TID #0 07/01/10 11/11/20 History (120 mg-180 mg) capsule (Fish Oil) cholecalciferol (vitamin D3) 50 1 cap PO DAILY 12/20/17 11/11/20 History mcg (2,000 unit) capsule (Vitamin D3) flaxseed oil 1,000 mg capsule 1 cap PO TID 12/20/17 11/11/20 History omeprazole 20 mg capsule,delayed 40 mg PO DAILY 12/31/17 11/11/20 History release quetiapine 25 mg tablet 25 mg PO DAILY 12/31/17 11/11/20 History venlafaxine 37.5 mg 150 mg PO QAM cap 12/31/17 11/11/20 History capsule,extended release 24 hr Allergies Allergy/AdvReac Type Severity Reaction Status Date / Time No Known Drug Allergies Allergy Verified 11/11/20 11:44 Review of Systems Review of Systems Narrative: All negative except for H&P please see their Exam Vital Signs (past 8 hours): - 11/11/20 11:38 11/11/20 12:31 11/11/20 13:00 Temperature 97.8 F Pulse Rate 101 H 95 H 93 H Respiratory Rate 12 20 27 H Blood Pressure 172/93 H Pulse Oximetry 93 99 90 L 11/11/20 13:30 11/11/20 14:00 11/11/20 14:01 Temperature Pulse Rate 87 82 80 Respiratory Rate 22 27 H 29 H Blood Pressure 123/58 L 101/61 111/54 L Pulse Oximetry 100 100 11/11/20 14:03 11/11/20 14:20 11/11/20 15:02 Temperature 98.1 F 98 F 97.2 F L Pulse Rate 79 83 81 Respiratory Rate 16 20 19 Blood Pressure 111/54 L 114/53 L 123/66 Pulse Oximetry 100 11/11/20 17:46 11/11/20 17:50 Temperature 98.2 F 98.2 F Pulse Rate 76 76 Respiratory Rate 18 18 Blood Pressure 106/51 L 106/51 L Pulse Oximetry Oxygen Delivery Method Room Air Narrative Exam Narrative: Alert female fatigued in appearance anxious in no acute distress. Bulbar conjunctiva pale. Mucous membranes dry. Neck supple without adenopathy. Lungs are clear. Heart regular rate and rhythm without murmur. Abdomen is soft positive bowel sounds no pedis pain megaly no masses. Rectal exam per emergency room positive guaiac. Black stool. Extremities without cyanosis clubbing edema. Neurologic exam is unremarkable. Skin is pale but no rash Objective Labs Result Diagrams: 11/11/20 12:00 11/11/20 12:00 Labs: Laboratory Results - last 24 hr 11/11/20 11/11/20 11/11/20 12:00 12:00 12:00 WBC 16.2 H RBC 1.72 L Hgb 5.1 L* Hct 16.1 L* MCV 93.7 MCH 30.0 MCHC 32.0 RDW 18.1 H Plt Count 219 Neut % (Auto) 90.3 H Lymph % (Auto) 6.3 L [place] % (Auto) 3.1 Eos % (Auto) 0.0 L Baso % (Auto) 0.3 Neut # (Auto) 11447 H Lymph # (Auto) 1000 L [place] # (Auto) 500 Eos # (Auto) 0 Baso # (Auto) 0 PT 12.2 INR 1.1 APTT 24 L D Sodium 139 Potassium 4.2 Chloride 112 H Carbon Dioxide 19 L BUN 41 H Creatinine 0.79 Estimated GFR > 60.0 BUN/Creatinine Ratio 51.9 H Glucose 198 H Calcium 8.2 L Total Bilirubin 0.2 AST 23 ALT 16 Alkaline Phosphatase 48 Total Creatine Kinase 32 CK-MB (CK-2) TNP CK-MB (CK-2) Rel Index TNP Troponin I < 0.012 Total Protein 5.4 L Albumin 3.1 L Globulin 2.3 Albumin/Globulin Ratio 1.3 Lipase 545 H SARS-CoV-2 (PCR) Blood Type Antibody Screen Crossmatch 11/11/20 11/11/20 12:33 13:30 WBC RBC Hgb Hct MCV MCH MCHC RDW Plt Count Neut % (Auto) Lymph % (Auto) [place] % (Auto) Eos % (Auto) Baso % (Auto) Neut # (Auto) Lymph # (Auto) [place] # (Auto) Eos # (Auto) Baso # (Auto) PT INR APTT Sodium Potassium Chloride Carbon Dioxide BUN Creatinine Estimated GFR BUN/Creatinine Ratio Glucose Calcium Total Bilirubin AST ALT Alkaline Phosphatase Total Creatine Kinase CK-MB (CK-2) CK-MB (CK-2) Rel Index Troponin I Total Protein Albumin Globulin Albumin/Globulin Ratio Lipase SARS-CoV-2 (PCR) Negative Blood Type O Positive Antibody Screen Negative Crossmatch See Detail Assessment & Plan Assessment & Plan narrative: GI bleed. Presumed upper secondary to symptoms. Consult surgeons. Appreciate their input. Hopefully will figure it out tomorrow. Blood loss anemia. Significant blood loss. 2 units given today. It appears as if this is slow will loss and we will follow closely. Hemodynamically is stable will see how far she gets after her next unit and will give blood if she is less than 22 Anxiety. Big issue. Will continue her current meds. Will continue to give support. Hypotension. Mild. Should improve the fluids and blood. Code status full at this time but had discussion patient is not fully reversed in this but at this point will be food full code. DVT prophylaxis sequential hose. Unable to use Lovenox secondary to bleeding risk. Disposition. Suspect will be here with several days but will see what happens and will depend on her findings at EGD.
[2020-11-11] MEDS: LACTATED RINGERS 1,000 ML 100 ML IV (20:34)
[2020-11-11] MEDS: QUETIAPINE 25 MG TABLET PO (20:35)
[2020-11-11 21:17] LABS: Hematocrit 24.4 % (36-46); Hemoglobin 8.2 g/dL (12.0-16.0)
--- NOTE | 2020-11-11 21:59 | PC.NURSE ---
Pt recieved 2U PRBC's this evening, H/H after 8.2/24.4 IVF infusing as per orders Pt states she is feeeling a little better. NPO @ MN for scope in am Call light w/in reach, bed alarm on for pt safety. Continue w/plan of care.
[2020-11-12] VITALS (23 sets, daily range): BP systolic 106–153; BP diastolic 51–97; PULSE 65–82; RESP 14–32; TEMP 36.3–37.5; O2SAT 94–100
--- NOTE | 2020-11-12 | PATH_ITS ---
[facility] Accession Number: [id number] . 01 Material submitted: . gastrointestinal site - GASTRIC MASS . 02 Diagnosis: Stomach, Mass, Biopsy: Superficial fragments of gastric mucosa, some with cautery/crush artifact and focally crowded capillaries; please see comment. Negative for Helicobacter by immunohistochemistry. Negative for intestinal metaplasia. Negative for dysplasia and malignancy. . [facility] 11/15/2020 1350 Local . 02 Comment: The impression of a mass is noted. Biopsies are predominately superficial gastric mucosa with no significant diagnostic abnormality. There is a small focus of crowded small capillaries which could be compatible with healed/healing erosion, granulation tissue, or hemangioma in the appropriate clinical setting. An unsampled neoplasm could remain a consideration, in the appropriate clinical and radiologic setting. . 02 Electronically signed: . Ghazal Perez MD, Pathologist NPI- [id number] . 01 Gross description: . GASTRIC MASS: Received in formalin are multiple fragment(s) of [place], soft tissue measuring 1.8 x 0.3 x 0.1 cm in aggregate submitted entirely in 1 cassette(s) /[facility] 11/13/2020 0345 Local . 02 Microscopic: . Additional deeper levels were examined. An immunohistochemical stain was performed to evaluate for Helicobacter organisms and is negative. The control stain showed appropriate reactivity. . * This test was developed and its performance characteristics determined by [employer]. It has not been cleared or approved by the U.S. Food and Drug Administration. The FDA has determined that such clearance or approval is not necessary. This test is used for clinical purposes. It should not be regarded as investigational or for research. . 02 Pathologist provided ICD-10: R19.00 . 02 CPT . 037957, [id number] Performed at: 01 [facility] [address] [place] [address], [place], [place] [id number] MD Sourav Silveira MD Phone: [phone] Performed at: 02 [facility] [address] [place], [place] [id number] MD Ghazal Perez MD Phone: [phone]
[2020-11-12] MEDS: ACETAMINOPHEN 325 MG TABLET 650 MG PO ×3 (00:10→23:49)
[2020-11-12 05:11] LABS: Alanine Aminotransferase 11 IU/L (<35); Albumin 2.2 g/dL (3.5-5.0); Albumin Globulin Ratio 1.1 (1.0-2.8); Alkaline Phosphatase 35 U/L (38-126); Aspartate Aminotransferase 19 IU/L (14-36); BUN Creatinine Ratio 42.4 (6-22); Bilirubin Total 0.7 mg/dL (0.2-1.3); Blood Urea Nitrogen 28 mg/dL (7-17); Calcium 7.7 mg/dL (8.4-10.2); Carbon Dioxide 24 mmol/L (22-32); Chloride 115 mmol/L (98-107); Estimated Glomerular Filt Rate > 60.0 mL/min (>60); Glucose 89 mg/dL (80-110); HEMOLYSIS < 15 (0-50); Potassium 4.1 mmol/L (3.4-5.1); Sodium 139 mmol/L (137-145); Total Protein 4.2 g/dL (6.3-8.2)
[2020-11-12 05:12] LABS: Appearance Urine UA CLEAR; Bacteria Urine None Seen; Bilirubin Urine UA NEGATIVE (NEGATIVE); Color Urine UA YELLOW; Glucose Urine UA NEGATIVE (Negative); Ketones Urine UA NEGATIVE (NEGATIVE); Leukocyte Esterase Urine UA NEGATIVE (NEGATIVE); Nitrite Urine UA NEGATIVE (Negative); Occult Blood Urine UA NEGATIVE (Negative); Protein Urine UA NEGATIVE (Negative); RBC Urine None Seen (0-5/HPF); Urobilinogen Urine UA 0.2 E.U./dL (0.2); WBC Urine None Seen (0-5/HPF)
[2020-11-12 05:27] LABS: Culture Indicated Urine Cult Not Indicated; Renal Epithelial Cells Urine 0-1/HPF (0-1/HPF)
[2020-11-12] MEDS: LACTATED RINGERS 1,000 ML 100 ML IV (07:34)
[2020-11-12 08:40] LABS: Hematocrit 20.8 % (36-46)
[2020-11-12 08:42] LABS: Hemoglobin 6.9 g/dL (12.0-16.0)
[2020-11-12] MEDS: PANTOPRAZOLE 40 MG VIAL IV (10:23)
--- NOTE | 2020-11-12 13:16 | P.PN_ITS ---
Subjective Subjective Date Patient Seen: 11/12/20 Time Patient Seen: 08:00 Interval history: Patient was seen in follow-up of her GI bleed. She has had no abdominal pain. No nausea no vomiting and otherwise is feeling well. Exam Vital Signs (past 8 hours): - 11/12/20 08:00 11/12/20 10:55 11/12/20 10:59 Temperature 98.7 F 99.0 F 98.8 F Pulse Rate 74 71 70 Respiratory Rate 18 16 16 Blood Pressure 107/57 L 108/56 L 108/60 Pulse Oximetry 99 11/12/20 11:10 11/12/20 13:06 Temperature 98.6 F 99.5 F Pulse Rate 73 71 Respiratory Rate 15 16 Blood Pressure 113/57 L 106/60 Pulse Oximetry Oxygen Delivery Method Room Air Oxygen Flow Rate 0 Narrative Exam Narrative: Alert smiling elderly female lying in bed sleepy in no acute distress. Lungs are clear. Heart regular rate and rhythm. Abdomen is soft positive bowel sounds nontender skin is still pale normal capillary refill Objective Labs Result Diagrams: 11/12/20 08:25 11/12/20 04:30 Labs: Laboratory Results - last 24 hr 11/11/20 11/11/20 11/11/20 12:33 13:30 21:09 Hgb 8.2 L Hct 24.4 L Sodium Potassium Chloride Carbon Dioxide BUN Creatinine Estimated GFR BUN/Creatinine Ratio Glucose Calcium Total Bilirubin AST ALT Alkaline Phosphatase Total Protein Albumin Globulin Albumin/Globulin Ratio Urine Color Urine Appearance Urine pH Ur Specific [place] Urine Protein Urine Glucose (UA) Urine Ketones Urine Occult Blood Urine Nitrate Urine Bilirubin Urine Urobilinogen Ur Leukocyte Esterase Urine RBC Urine WBC Ur Renal Epithelial Cell Urine Bacteria Ur Culture Indicated? SARS-CoV-2 (PCR) Negative Blood Type O Positive Antibody Screen Negative Crossmatch See Detail 11/12/20 11/12/20 11/12/20 04:30 04:45 08:25 Hgb 6.9 L* Hct 20.8 L* Sodium 139 Potassium 4.1 Chloride 115 H Carbon Dioxide 24 BUN 28 H Creatinine 0.66 Estimated GFR > 60.0 BUN/Creatinine Ratio 42.4 H Glucose 89 D Calcium 7.7 L Total Bilirubin 0.7 AST 19 ALT 11 Alkaline Phosphatase 35 L Total Protein 4.2 L Albumin 2.2 L Globulin 2.0 Albumin/Globulin Ratio 1.1 Urine Color Yellow Urine Appearance Clear Urine pH 7.0 Ur Specific [place] 1.010 Urine Protein Negative Urine Glucose (UA) Negative Urine Ketones Negative Urine Occult Blood Negative Urine Nitrate Negative Urine Bilirubin Negative Urine Urobilinogen 0.2 Ur Leukocyte Esterase Negative Urine RBC None seen Urine WBC None seen Ur Renal Epithelial Cell 0-1/hpf Urine Bacteria None seen Ur Culture Indicated? Cult not indicated SARS-CoV-2 (PCR) Blood Type Antibody Screen Crossmatch [facility] Medical History Depression Surgical History H/O: hysterectomy Hx of appendectomy Social History household members: none Smoking Status: Former smoker alcohol intake: current substance use type: does not use Assessment & Plan Assessment & Plan narrative: Blood loss anemia. Patient got 2 units yesterday and is at 20 today. Was 24 after her units. Appears to be still bleeding. Will give 2 more units today. Hopefully will have some diagnosis soon. Will reassess later this afternoon. GI bleed. Reason for blood loss anemia. Appears to be actively bleeding EGD today. Seems most likely to be upper. Hopefully we find with the issue is. If not will be prepped and evaluated for colonoscopy. No other changes. Stable at this time. Hypotension. Still mildly low but doing better. Clinically much improved. Will follow. Secondary To GI bleed and blood-loss anemia code status. Still full code. DVT prophylaxis sequential hose unable to use any anticoagulation secondary to her GI bleed Disposition suspect will be here a few more days will have to see how things go hopefully EGD shows as source.
--- NOTE | 2020-11-12 14:46 | PC.NURSE ---
Patient leaving room to go down for EGD. Left via wheelchair with operating room staff. Blood transfusing still, bedside report given.
[2020-11-12] MEDS: LACTATED RINGERS 1,000 ML 42 ML IV ×2 (15:20→18:44)
--- NOTE | 2020-11-12 15:21 | PM.PREOP ---
Pre-operative Note Interval Note History & Physical reviewed/Exam performed by Physician: Yes Changes to H&P: No
--- NOTE | 2020-11-12 15:24 | SUR.HOLD ---
left a\c 20 g with blood infusing since 1400. right a/c lock and holding fluids initiated.
[2020-11-12] MEDS: EPINEPHrine 1 MG/10 ML SYRINGE IV (15:48)
--- NOTE | 2020-11-12 16:49 | PM.OP.ENDO ---
Operative Date/Time/Diagnoses Date of procedure: 11/12/20 Time of procedure: 16:49 Pre-op diagnosis: GI bleed Post-op diagnosis: same Procedure & Clinicians Study performed: esophagoduodenoscopy Same procedure as scheduled: Yes Indications: Hemodynamically stable GI bleed with melena Surgeon: Lalito Shea Procedure Notes Procedure in detail: Patient was brought to the operating room placed supine on the table. Procedural sedation was administered by anesthesia. Time-out was performed. The endoscope was carefully inserted into the mouth and advanced into the esophagus. The esophagus was normal in its appearance no evidence of esophagitis ulcers or masses. Stomach was entered. There was combination of old blood and small amount of fresh blood coming from a 3 cm pedunculated mass within the distal body of the stomach. Hot snare was placed around the base of the mass and then using electrocautery the mass was transected off the base. Base was quite broad and did not feel that taking the remainder of the base could be accomplished safely without risk of gastric perforation. The mass was too large to withdraw back into the esophagus despite multiple attempts. Using the biopsy forceps several bites of the transected portion of the mass as well as the base of the mass were obtained labeled gastric mass. Scope was passed into the pylorus the duodenum was normal to the 3rd portion,. Scope was retroflexed within the is stomach notable for a moderate size hiatal hernia. The Z-line was observed at 37 cm in size is normal in its appearance no evidence of Dueñas's. Patient was extubated and transferred to recovery room in stable condition. Specimen(s): other (gastric mass) Complications: none Impression: gastric mass Post-procedure Recommendations: Continue medication(s) Plan for aftercare: continue protonix ok for diet as tolerated if Hgb stable can likely discharge tomorrow Disposition: Acute Care
--- NOTE | 2020-11-12 16:59 | SUR.PHASEI ---
Received to PACU after colonoscopy with MAC. Oral airway in place upon removal. - removed by Dr Pemberton. Report received from JEREMIAH Matthew and Dr Pemberton.
--- NOTE | 2020-11-12 17:02 | CM.DANOTE ---
Discharge Planning/Care Management DCP: assessment: initiated: case received, EMR reviewed and discussed in Team Rounds. Pt was receiving more blood for at total at that time of 4 units. Pt is an 85 year old female who admitted to care of Dr. Mcclendon. PCP: Dr. Villegas Consulting: [facility] Surgeons: Dr. Shea. Went to room this afternoon to meet pt and introduce self and role but she was off the acute care floor for EGD. DCP team will be following to assist with d/c issues/options. Payer: Medicare and for Life Admission status: INPT. CM Discharge Assessment Start: 11/12/20 16:56 Freq: Status: Active Protocol: Document 11/12/20 17:00 ITV (Rec: 11/12/20 17:02 ITV [id number]) Discharge Planning Assessment Advance Directives? No History Provided By Medical Record Prior Living Arrangements House Household Members none Is patient alert and oriented? Yes Review Status In Process
--- NOTE | 2020-11-12 17:08 | SUR.PHASEI ---
Pt with loose, productive cough. Weaning O2 as noted. Report to Jose Cassidy RN.
[2020-11-12 18:33] LABS: Hematocrit 33.4 % (36-46)
[2020-11-12] MEDS: QUETIAPINE 25 MG TABLET PO (20:20)
--- NOTE | 2020-11-12 22:13 | PC.NURSE ---
Pt arrived back to floor @ 1745 Alert/awake, denies discomfort. Taking general diet w/o issues. IVF infusing into LAC via pump w/o incidence. RAC intact/patent. Call light w/in reach, bed alarm on for pt safety. Continue w/plan of care.
[2020-11-13 04:49] VITALS: BP 120/61; PULSE 73; RESP 18; TEMP 36.5; O2SAT 95
[2020-11-13 05:23] LABS: Add Manual Diff / Slide Review NO; Basophils Absolute Auto 100 /uL (0-100); Basophils Percent Auto 0.5 % (0-2); Eosinophils Absolute Auto 100 /uL (0-450); Eosinophils Percent Auto 0.7 % (2-4); Hematocrit 28.8 % (36-46); Hemoglobin 9.6 g/dL (12.0-16.0); Lymphocytes Absolute Auto 2000 /uL (1100-4500); Lymphocytes Percent Auto 16.5 % (25-40); Mean Corpuscular HGB Conc 33.5 % (30-36); Mean Corpuscular Hemoglobin 29.7 PG (26-34); Mean Corpuscular Volume 88.5 fL (80-100); Monocytes Absolute Auto 600 /uL (0-900); Monocytes Percent Auto 5.3 % (3-14); Neutrophils Absolute Auto 9200 /uL (1500-7000); Platelet Count 153 X10^3/uL (150-400); Red Blood Cell Count 3.25 X10^6/uL (4.0-5.2); Red Cell Distribution Width 15.9 % (11.6-14.8); White Blood Cell Count 11.9 X10^3/uL (4.5-11.0)
--- NOTE | 2020-11-13 06:50 | PC.NURSE ---
Pt. back to sleep now @ 0450, screaming while she's asleep. Asked her what's wrong she stated I don't know, I might have a bad dream. Ambulated to the BR voided 400 cc of clear urine & passed very small formed blackish stool. Declined her Tylenol reports I had no pain. No bleeding noted, will cont. POC & monitor
[2020-11-13 08:00] VITALS: BP 110/66; PULSE 71; RESP 16; TEMP 36.9; O2SAT 96
[2020-11-13] MEDS: QUETIAPINE 25 MG TABLET PO (08:50)
[2020-11-13] MEDS: PANTOPRAZOLE 40 MG VIAL IV (08:50)
[2020-11-13] MEDS: VENLAFAXINE ER 75 MG CAP 150 MG PO (08:50)
[2020-11-13] MEDS: SODIUM CHLORIDE 0.9% FLUSH 10 ML IV ×2 (08:50→21:57)
--- NOTE | 2020-11-13 10:21 | P.PN_ITS ---
Subjective Subjective Date Patient Seen: 11/13/20 Time Patient Seen: 10:21 Interval history: Patient seen in follow-up of blood loss anemia and GI bleed. Had EGD yesterday. Found a mass. Pathology not back. Patient feeling well. Had a bad night. Is not getting her Seroquel in the right way. Anxiety was increased. No other changes. No abdominal pain. No other complaint. Exam Vital Signs (past 8 hours): - 11/13/20 04:49 11/13/20 08:00 Temperature 97.7 F 98.5 F Pulse Rate 73 71 Respiratory Rate 18 16 Blood Pressure 120/61 110/66 Pulse Oximetry 95 96 Oxygen Delivery Method Room Air Oxygen Flow Rate 0 Narrative Exam Narrative: Alert elderly female slightly less pale in no acute distress. Lungs are clear. Heart regular rate and rhythm. Abdomen is soft positive bowel sounds nontender. Extremities without cyanosis clubbing edema. Neurologic exam is nonfocal. Objective Labs Result Diagrams: 11/13/20 04:45 11/12/20 04:30 Labs: Laboratory Results - last 24 hr 11/11/20 11/12/20 11/13/20 12:33 18:04 04:45 WBC 11.9 H RBC 3.25 L Hgb 11.0 L 9.6 L Hct 33.4 L 28.8 L MCV 88.5 D MCH 29.7 MCHC 33.5 RDW 15.9 H Plt Count 153 Neut % (Auto) 77.0 H Lymph % (Auto) 16.5 L [place] % (Auto) 5.3 Eos % (Auto) 0.7 L Baso % (Auto) 0.5 Neut # (Auto) 9200 H Lymph # (Auto) 2000 [place] # (Auto) 600 Eos # (Auto) 100 Baso # (Auto) 100 Blood Type O Positive Antibody Screen Negative Crossmatch See Detail PFSH Medical History Depression Surgical History H/O: hysterectomy Hx of appendectomy Social History household members: none Smoking Status: Former smoker alcohol intake: current substance use type: does not use Assessment & Plan Assessment & Plan narrative: GI bleed. Secondary to mass. Removed. Hopefully this will stabilize things. Blood hematocrit was down moderate amount. At this point will Hep-Lock fluids and will recheck in a.m.. If stable will discharge home. Gastric mass. Will have to wait pathology. Will approach as appropriate. Blood loss anemia. Still decreased. Appears to be secondary to GI bleed. Probably stomach. Got 2 more units of blood last night. Total of for now. Seems to be stable though dropped moderate amount overnight. Could be combination of loss and fluids fluids were discontinued will see what happens o jakub the next 24 hours. If stable can go home. Not taking food well at this time. Anxiety severe will switch Seroquel till night and re-evaluate. Patient understands. Agrees. Hypotension. Seems to be more stable. Will discontinue IV fluids and follow. Code status full. DVT prophylaxis. As per sequential hose. Do not Wanna add risk for bleeding. Disposition. Will get her up and move around with physical therapy if she does well and her hematocrit is stable and she is taking p.o. will discharge home tomorrow. With follow-up with Dr. Villegas next week
--- NOTE | 2020-11-13 14:05 | PT.IIE ---
Current Diagnoses Gastrointestinal hemorrhage, unspecified (11/11/20) Surgery Performed Operation Date: 11/12/20 14:15 Actual Procedures p Esophagogastroduodenoscopy w/biopsy - Lalito Shea MD Medical History (Last Reviewed 11/11/20 @ 19:29 by Osman Mcclendon MD) Depression Physical Therapy Inpatient Evaluation/Re-Eval M1 PT/OT-IP Prior Functional Status Start: 11/13/20 15:01 Freq: NEEDED Status: Active Protocol: Document 11/13/20 14:05 AB (Rec: 11/13/20 15:16 AB [email or web address]) Medical Review Prior Functional Status Medical History Reviewed Yes Communication able to make needs known Mobility and Gait pt stated that she is independent with all mobilities annd ambualtion without AD. pt still drives Social History Household Members none Living Arrangements House Number of Stairs To Enter/Railing? pt stated that she lives in a senior housing community no steps to enter Home Environment Standard Height Toilet,Walk in Shower,Built-In Shower Seat Home Equipment Four Wheel Walker,Hand Held Shower,Grab Bars Near Toilet Additional Social History Comment pt stated that her son maybe able to assist her. M2 PT-IP Current Condition Start: 11/13/20 15:01 Freq: NEEDED Status: Active Protocol: Document 11/13/20 14:05 AB (Rec: 11/13/20 15:16 AB [email or web address]) Physical Therapy Current Condition Current Condition Evaluation Date 11/13/20 Treatment Diagnosis GI bleed; gastric mass; difficulty in walking Onset Date 11/11/20 M3 PT-IP Subjective Start: 11/13/20 15:01 Freq: NEEDED Status: Active Protocol: Document 11/13/20 14:05 AB (Rec: 11/13/20 15:16 AB [email or web address]) Subjective Physical Therapy Visit Type Type Initial Evaluation Visit Start Time 14:05 Visit Stop Time 14:40 Total Visit Minutes 35 Number of TOP TAPER MACHINE Visits 0 Physical Therapy Visit Comments Patient Comments pt is agreeable to do PT Therapy Pain Assessment Pain Present Pain Present Denied Pain M4 PT-IP Mobility and Gait Start: 11/13/20 15:01 Freq: NEEDED Status: Active Protocol: Document 11/13/20 14:05 AB (Rec: 11/13/20 15:16 AB [email or web address]) PT-Bed Mobility Assessment Supine to Sit Supine to Sit Standby Assistance PT-Transfer Assessment Sit to and From Stand Sit to and from Stand Standby Assistance Equipment Transfer Assistive Device None,Gait Belt Orthotic/Prosthetic Devices or Brace: No Transfers Transfer Destination Chair Transfer Technique ambulated Transfer Ability Level of Assist Standby Assistance,1 Person Assistance,Use of Upper Extremities Comments Mobility Comments pt supine in bed and agreed to do PT. BP supine: 134/78. completed supine to sit SBA. pt was able to sit on EOB SBA. no c/o dizziness/ lightheadedness. BP checked: 148/74. completed sit to stand SBA and ambulated in room SBA to CGA. pt agreed to ambulate in the hallway ~ 200 ft without AD SBA to CGA. pt tends to run into things on R side and requires cues for safety. pt agreed to sit up on chair. positioned on chair . call light and table placed within reach. informed pt regarding safety and ambulation and pt tends to veer and run into things on R side. pt stated that it she has decrease side side vision. educated pt on safety and f/ u with her doctor regarding vision deficits. will continue PT to address ambulation safety and compensating for vision deficit at this time. Gait Assessment Gait Gait Assistance Required: Standby Assistance,Contact Guard Assist Distance (Feet) 200 Assistive Devices Assistive Device None,Gait Belt Orthotic/Prosthetic Devices or Brace: No Gait Deviations General Gait Pattern Decreased Stride Length, Decreased Feet Clearance Factors Limiting Gait Function Factors Limiting Gait Function Poor Safety Awareness Comments Gait Comments pls refer to mobility section for details PT-Balance Assessment Sitting Balance and Reactions Static Sitting Balance Ability Normal Dynamic Sitting Balance Ability Good Standing Balance and Reactions Static Standing Balance Ability Good Dynamic Standing Balance Ability Good Device Used without AD M5 PT-IP Objective Assessments Start: 11/13/20 15:01 Freq: NEEDED Status: Active Protocol: Document 11/13/20 14:05 AB (Rec: 11/13/20 15:16 AB [email or web address]) Orientation Orientation/Cognition Level of Alertness Alert Orientation Name,Place,Situation Safety Awareness Decreased Safety Awareness Memory Description No Deficits Noted Gross Range of Motion Lower Extremity ROM Assessment Within Functional Limits Strength Lower Extremity Strength Assessment Within Functional Limits Sensation Assessment Sensation Gross Sensation WNL Muscle Tone Muscle Tone WNL Yes M6 PT-IP Treatment Start: 11/13/20 15:01 Freq: NEEDED Status: Active Protocol: Document 11/13/20 14:05 AB (Rec: 11/13/20 15:16 AB [email or web address]) Physical Therapy Treatment Education Education Provided Safety M7 PT-IP Assessment and Plan Start: 11/13/20 15:01 Freq: NEEDED Status: Active Protocol: Document 11/13/20 14:05 AB (Rec: 11/13/20 15:16 AB [email or web address]) PT Summary Assessment and Plan Potential Rehabilitation Potential Good Status of Condition at Evaluation Stable Summary Impairments Balance,Gait,Activity Tolerance Assessment Summary pt requiring SBA to CGA with mobility and ambulation without AD but with tendency to veer into R side and run into things. will continue PT for ambulation training and address strategies to compensate for vision deficit during ambulation for safety. will continue to assess progress. Goals Bed Mobility Goal Independent Transfer Goal Independent Gait Goal Independent Gait Distance 250 Days to Meet Goals 5 Frequency of Treatment Frequency Of Treatment Once a Day Treatment Plan Physical Therapy Treatment Plan Bed Mobility Training,Transfer Training,Gait Training, Therapeutic Exercise,Balance Retraining,Post Op Education, Discharge Planning,Hot or Cold Pack,Neuromuscular Re-ed, Coordination Retraining Recommendations To Nursing Amount of Assist Needed 1 Person Assist Discharge Recommendations PT Discharge Recommendations Home with Assistance Transportation Needs at Discharge Private Vehicle
--- NOTE | 2020-11-13 15:23 | CM.DPC ---
Addendum entered by Mihaela Martinez R.N. 11/13/20 15:30: It is also noted that patient resides in an independent senior apartment. She has worked with P.T. today, which recommends home with assist. Original Note: DCP Cont: Checked in with patient, son, at bedside. He has a son that lives in [place], and another son named Beny who lives in [place]. Patient resides in [place] alone. Introduced self and role. Confirmed that patient resides in [place] alone. She did state that she is involved with the [facility] [employer]. She uses no DME supplies. Asked patient if she has a Life Line, which she does not have. Gave her a brochure for lifeline. Also, brought in [facility] Book with resources in caregivers, should she need extra help with private caregivers. Also, asked about interest in home health, which patient indicated, she is interested, and has no preference upon agency. She has not used home health services before. Gave her a Medicare Choice List as well. Patient was to be working with P.T. today, notes not yet in. She does not use any DME supplies at her baseline. She also indicated that she receives Meals on Wheels as well. P: DCP to continue to follow. Will need to get a face to face signed for home health. According to Dr. Mcclendon's note, she should be ready for discharge by tomorrow. Mihaela Martinez RN/Tv Host
[2020-11-13 15:44] VITALS: BP 140/73; PULSE 70; RESP 19; TEMP 37.2; O2SAT 98
--- NOTE | 2020-11-13 15:56 | PC.NURSE ---
Assumed care of pt at 1500. Pt sitting up in bed during hand-off. A/Ox4. Denies pain. Denies discomfort. Advised to notify staff if has BM for staff to assess for bleeding. I.S. provided, instructed to do 10 breaths/hr. Pt verbalized understanding. Supportive son Irving at bedside. Bed alarm on. Pt verbalized she will call for needs.
[2020-11-13 19:56] VITALS: BP 147/78; PULSE 72; RESP 18; TEMP 37.1; O2SAT 99
[2020-11-13] MEDS: QUETIAPINE 25 MG TABLET 50 MG PO (21:55)
[2020-11-14 00:48] VITALS: BP 124/68; PULSE 76; RESP 18; TEMP 36.6; O2SAT 97
[2020-11-14 04:49] LABS: Add Manual Diff / Slide Review NO; Basophils Absolute Auto 100 /uL (0-100); Eosinophils Absolute Auto 300 /uL (0-450); Eosinophils Percent Auto 3.9 % (2-4); Hematocrit 26.8 % (36-46); Hemoglobin 8.9 g/dL (12.0-16.0); Lymphocytes Absolute Auto 1200 /uL (1100-4500); Lymphocytes Percent Auto 15.8 % (25-40); Mean Corpuscular HGB Conc 33.4 % (30-36); Mean Corpuscular Hemoglobin 30.2 PG (26-34); Mean Corpuscular Volume 90.6 fL (80-100); Monocytes Absolute Auto 400 /uL (0-900); Monocytes Percent Auto 5.8 % (3-14); Neutrophils Absolute Auto 5500 /uL (1500-7000); Neutrophils Percent Auto 72.5 % (50-75); Platelet Count 158 X10^3/uL (150-400); Red Blood Cell Count 2.96 X10^6/uL (4.0-5.2); Red Cell Distribution Width 16.5 % (11.6-14.8); White Blood Cell Count 7.5 X10^3/uL (4.5-11.0)
[2020-11-14 08:00] VITALS: BP 157/77; PULSE 79; RESP 17; TEMP 36.6; O2SAT 97
[2020-11-14] MEDS: VENLAFAXINE ER 75 MG CAP 150 MG PO (08:09)
[2020-11-14] MEDS: SODIUM CHLORIDE 0.9% FLUSH 10 ML IV (08:09)
[2020-11-14] MEDS: PANTOPRAZOLE 40 MG VIAL IV (08:09)
--- NOTE | 2020-11-14 08:59 | PM.DS.1 ---
History of Present Illness History of Present Illness Date Patient Seen: 11/14/20 Time Patient Seen: 08:40 Chief complaint: having falls, shaky, sweaty Narrative: slept well over night and feeling better this morning. ate and ambulated to the bathroom on her own. no more bleeding per rectum. Discharge Providers Provider Date of admission: 11/11/20 13:12 Discharge Date: 11/14/20 Primary care physician: Robyn Villegas MD Consults: 11/11/20 14:53 Consult to General Surgery Routine Comment: Consulting Provider: Lalito Shea Reason for consultation: gi bleed Has provider been notified: Yes 11/13/20 10:19 Consult to Physical Therapy Evaluate & Treat Comment: Physician Instructions: Evaluate and Treat Discharge provider: Hector Davidson MD Summary Hospital Course Discharge Diagnosis: GI bleed Hospital Course: Ms. Darby was admitted in acute anemia due to hematochezia. She received colonoscopy which found and removed a mass pathology is still pending. She did well after scope and was ambulating and taking PO on DoD. Exam Vital Signs (past 8 hours): - 11/14/20 08:00 Temperature 97.9 F Pulse Rate 79 Respiratory Rate 17 Blood Pressure 157/77 H Pulse Oximetry 97 Oxygen Delivery Method Room Air Oxygen Flow Rate 0 Narrative Exam Narrative: pleasant elder sitting up on side of bed Const General: cooperative, healthy appearing and comfortable Eyes General: appearance normal, both eyes and all related structures Neck Neck: normal visual inspection and full ROM Lymphatic: No lymphadenopathy Resp Effort & Inspection: normal respiratory effort and able to speak in complete sentences Auscultation: clear to auscultation bilaterally Cardio Rate: regular rate Rhythm: regular rhythm Heart Sounds: S1 normal and S2 normal GI Inspection: normal to inspection Palpation: soft Percussion: normal to percussion Auscultation: normal bowel sounds Back/Spine/Pelvis Back: normal to inspection Skin General: no rashes or lesions noted Neuro General: patient alert, patient oriented x3 and CN's II-XI intact bilaterally Extrem General: normal to inspection and full ROM Psych Appearance: grossly normal and well kempt Mental Status: mental status grossly normal Objective Labs Result Diagrams: 11/14/20 04:25 11/12/20 04:30 Labs: Laboratory Results - last 24 hr 11/14/20 04:25 WBC 7.5 RBC 2.96 L Hgb 8.9 L Hct 26.8 L MCV 90.6 MCH 30.2 MCHC 33.4 RDW 16.5 H Plt Count 158 Neut % (Auto) 72.5 Lymph % (Auto) 15.8 L Hemphill % (Auto) 5.8 Eos % (Auto) 3.9 Baso % (Auto) 2.0 Neut # (Auto) 5500 Lymph # (Auto) 1200 Hemphill # (Auto) 400 Eos # (Auto) 300 Baso # (Auto) 100 PFSH Medical History Depression Surgical History H/O: hysterectomy Hx of appendectomy Social History household members: none Smoking Status: Former smoker alcohol intake: current substance use type: does not use Discharge Assessment & Plan Assessment and Plan Assessment: #GI bleed: likely 2/2 mass. Hgb stable overnight no further bleeding. DC home to f/u as outpt. #Gastric mass: pending pathology reprot f/u as outpt #Acute blood loss anemia: stable Hgb s/p 4Us PRBCs and cscopy. improved appetite. will dc on iron/folate/vitC. #Anxiety severe: ok to resume home meds f/u as outpt #Hypotension: improved, able to dc IVF overnight Code status full. Disposition: Home with HH/PT/OT and f/u as outpt. Discharge Plan Discharge Plan Patient Disposition: Home Health Service Transfer to: Home Health, Other Discharge orders & Medications Prescriptions: New Folitab 105 mg iron- 500 mg-800 mcg tablet extended release 1 tab PO DAILY Qty: 30 RF: 0 Continued quetiapine 25 mg tablet 25 mg PO DAILY RF: 0 omeprazole 20 mg capsule,delayed release(DR/EC) 40 mg PO DAILY RF: 0 aspirin 81 mg Tablet,Chewable 81 mg PO DAILY Qty: 0 RF: 0 Calcium 600 + D(3) 600 mg calcium- 200 unit Capsule 600 mg PO TID Qty: 0 RF: 0 omega 2-xqf-bpj-fish oil [Fish Oil] 1,000 mg (120 mg-180 mg) Capsule 1,000 iu PO TID Qty: 0 RF: 0 cholecalciferol (vitamin D3) [Vitamin D3] 2,000 unit Capsule 1 cap PO DAILY RF: 0 flaxseed oil 1,000 mg Capsule 1 cap PO TID RF: 0 venlafaxine 37.5 mg capsule,extended release 24hr 150 mg PO QAM RF: 0 Medication counseling provided by Pharmacist: Yes Follow up/Referrals: Robyn Villegas MD [Primary Care Provider] - Diet/Activity/Treatments Diet: Diet as Tolerated Skin/Wound/Dressing Care Report to your healthcare provider any signs of infection, such as:: chills, fever, increased pain and unusual redness Visit Report/Discharge Packet Instructions: Blood Transfusion, Gastrointestinal Bleeding, EGD Discharge Instructions Discharge Data Primary Care Provider: Robyn Villegas
--- NOTE | 2020-11-14 10:06 | CM.DPC ---
Addendum entered by Renate Cameron LPN 11/16/20 10:35: Received a vm today from Irving asking about the Lif[facility] and also when the HH RN would be out. He left his mother's cell and home numbers as call back. Reviewed DCP notes and called [facility]. She confims that they did receive the referral and said she would call the pt and or son today to discuss specifics. See also that JEREMIAH Ruibo did give Irving the information on how to order a [facility] service. This is done privately and not something that [facility] can set up for pt. Addendum entered by Mihaela Martinez R.N. 11/14/20 12:51: Had not yet heard from Sierra at [facility], went ahead and spoke to Geni in referrals, and she stated, it's probably still in their fax, but will look for it. Son, Syed, had been here earlier to take patient home. Encouraged him or patient that they can call [facility] tomorrow, if they do not yet hear from them in the afternoon. Original Note: DCP Cont: Patient has discharge orders for home today. Had left out a face to face for provider to sign, and Dr. Davidson did sign. Patient will be getting RN, P.T, and O.T. As patient has no preferences upon agencies, went ahead and placed referral to [facility], which is on the calendar for this week, and does serve [facility]. Called Sierra at [facility] and left her a message that referral is being placed. Brought in a [facility] pamphlet for patient. She is appreciative of referral, and care that she has received here. Her son, Raf, is to be picking her up. Gave her copy of IMM. Faxed [facility] face sheet, orders, face to face, H&P, DC summary, and P.T. notes. P: Patient is to be discharging home today with [facility] services. Have already given son Raf [facility] Book and Life [facility] information yesterday. Mihaela Martinez RN/Disulfurizer Tender
--- NOTE | 2020-11-14 10:17 | PT.IPTN ---
Current Diagnoses Gastrointestinal hemorrhage, unspecified (11/11/20) Surgery Performed Operation Date: 11/12/20 14:15 Actual Procedures p Esophagogastroduodenoscopy w/biopsy - Lalito Shea MD Physical Therapy Treatment Note M2 PT-IP Current Condition Start: 11/13/20 15:01 Freq: NEEDED Status: Active Protocol: Document 11/13/20 14:05 AB (Rec: 11/13/20 15:16 AB [email or web address]) Physical Therapy Current Condition Current Condition Evaluation Date 11/13/20 Treatment Diagnosis GI bleed; gastric mass; difficulty in walking Onset Date 11/11/20 M3 PT-IP Subjective Start: 11/13/20 15:01 Freq: NEEDED Status: Active Protocol: Document 11/14/20 10:17 AB (Rec: 11/14/20 10:38 AB [email or web address]) Subjective Physical Therapy Visit Type Type Treatment Note Visit Start Time 10:17 Visit Stop Time 10:25 Total Visit Minutes 8 Number of RUBBER BLOCK LAYER Visits 0 Physical Therapy Visit Comments Patient Comments pt is agreeable to do PT M4 PT-IP Mobility and Gait Start: 11/13/20 15:01 Freq: NEEDED Status: Active Protocol: Document 11/14/20 10:17 AB (Rec: 11/14/20 10:38 AB [email or web address]) Gait Assessment Gait Gait Assistance Required: Standby Assistance Distance (Feet) 350 Able to Maintain Weight Bearing Status Yes During Gait Assistive Devices Assistive Device None Orthotic/Prosthetic Devices or Brace: No Comments Gait Comments pt up by the sink and stated that she is going home. agreed to ambulate with PT and reminded regarding safety and scanning on the R to prevent running into things on the R. pt understood. ambulated >350 ft without AD supervision, without LOB and did not run into things on the R. pt ambulated back to her room. Pt cleared to be independing in her room. M5 PT-IP Objective Assessments Start: 11/13/20 15:01 Freq: NEEDED Status: Active Protocol: Document 11/13/20 14:05 AB (Rec: 11/13/20 15:16 AB [email or web address]) Orientation Orientation/Cognition Level of Alertness Alert Orientation Name,Place,Situation Safety Awareness Decreased Safety Awareness Memory Description No Deficits Noted Gross Range of Motion Lower Extremity ROM Assessment Within Functional Limits Strength Lower Extremity Strength Assessment Within Functional Limits Sensation Assessment Sensation Gross Sensation WNL Muscle Tone Muscle Tone WNL Yes M6 PT-IP Treatment Start: 11/13/20 15:01 Freq: NEEDED Status: Active Protocol: Document 11/14/20 10:17 AB (Rec: 11/14/20 10:38 AB [email or web address]) Physical Therapy Treatment Education Education Provided Safety M7 PT-IP Assessment and Plan Start: 11/13/20 15:01 Freq: NEEDED Status: Active Protocol: Document 11/14/20 10:17 AB (Rec: 11/14/20 10:38 AB [email or web address]) PT Summary Assessment and Plan Potential Rehabilitation Potential Good Summary Impairments Balance,Gait Progress Towards Goals Progressing Toward Goals,Safe For Discharge Assessment Summary pt only requires supervision with ambulation without AD and is steadier today than yesterday. pt stated that her son will stay with her for ~ 2 days to assist her as needed . Also talked about life alert since pt lives alone and stated that binder caser will help her with signing up and also stated that she will f/u with an opthalmologist for her vision problem. No further PT is required at this time. pt is cleared to be independent in her room. Frequency of Treatment Frequency Of Treatment Discharge Discharge Recommendations PT Discharge Recommendations Home with Assistance Transportation Needs at Discharge Private Vehicle
--- NOTE | 2020-11-14 11:11 | PC.NURSE ---
pt discharged to home with escort from son- who will be staying for a few days with pt- also, lined up were: home health nursing as well as lifeline info- answered all questions to both of their satisfaction- discharged from hospital at this time
== END 2020-11-14 11:00 | disposition home or self-care (01) | DRG 378 ==
LOC: ED 13:00 → AC 13:14
PROVIDERS: Surgery; Admitting Provider Family Medicine; Emergency Provider Emergency Medicine; PCP Family Medicine; Referring Provider Emergency Medicine; Visit Provider Family Medicine
PROC: 0DJ08ZZ Inspection of Upper Intestinal Tract, Via Natural or Artificial Opening Endoscopic (ICD-10-PCS; CPT 43235; principal; 2020-11-12 14:15)
DX: K92.1 Melena (principal); D62 Acute posthemorrhagic anemia; F41.9 Anxiety disorder, unspecified; I95.9 Hypotension, unspecified; E11.43 Type 2 diabetes mellitus with diabetic autonomic (poly)neuropathy; K31.84 Gastroparesis; R19.00 Intra-abdominal and pelvic swelling, mass and lump, unspecified site; Z20.822 Contact with and (suspected) exposure to COVID-19; Z87.891 Personal history of nicotine dependence
CPT/HCPCS: 36415; 36430; 43235; 70450; 71045; 80053; 81001; 82550; 83690; 84484; 85014; 85018; 85025; 85610; 85730; 86850; 86900; 86901; 87635; 93005; 94762; 96374; 97116; 97161; 99232; 99284; 99291; C9803; P9016; C9113; J0171; J2704

== ENCOUNTER 2020-11-20 22:20 | Inpatient (IN) | payer MEDICARE, OTHER, SELFPAY ==
[2020-11-11 14:54] VITALS: BMI 19.5
[2020-11-20] VITALS (7 sets, daily range): BP systolic 103–104; BP diastolic 47–54; PULSE 75–89; RESP 18–25; TEMP 37.2–37.5; O2SAT 97–99; BMI 19.2
--- NOTE | 2020-11-20 22:29 | ED_ITS ---
HPI - Recheck/Abnormal Lab/Rx General Chief Complaint: Recheck/Abnormal Lab/Rx Stated Complaint: Anemia Time Seen by Provider: 11/20/20 22:29 Source: patient and EMS Mode of arrival: EMS History of Present Illness HPI narrative: 85F nonsmoker with history of recent GI bleed returns by EMS for evaluation of worsening shortness of breath, fatigue and lightheadedness. She has reportedly pale and a bit sweaty. She denies nausea, vomiting or diarrhea but has been having dark stools. She denies dysuria, frequency or urgency. Her primary care provider called ahead to let us know she had becoming. She has no COVID symptoms and denies obvious exposure Related Data Home Medications Medication Instructions Recorded Confirmed aspirin 81 mg chewable tablet 81 mg PO DAILY #0 07/01/10 11/11/20 calcium carbonate-vitamin D3 600 600 mg PO TID #0 07/01/10 11/11/20 mg calcium-200 unit capsule (Calcium 600 + D(3)) omega 6-dij-bml-fish oil 1,000 mg 1,000 iu PO TID #0 07/01/10 11/11/20 (120 mg-180 mg) capsule (Fish Oil) cholecalciferol (vitamin D3) 50 1 cap PO DAILY 12/20/17 11/11/20 mcg (2,000 unit) capsule (Vitamin D3) flaxseed oil 1,000 mg capsule 1 cap PO TID 12/20/17 11/11/20 omeprazole 20 mg capsule,delayed 40 mg PO DAILY 12/31/17 11/11/20 release quetiapine 25 mg tablet 25 mg PO DAILY 12/31/17 11/11/20 venlafaxine 37.5 mg 150 mg PO QAM cap 12/31/17 11/11/20 capsule,extended release 24 hr Previous Rx's Medication Instructions Recorded ferrous sulfate 105 mg-C 500 1 tab PO DAILY #30 tab 11/14/20 mg-folic acid 800 mcg tablet,extend.rel (Folitab) Allergies Allergy/AdvReac Type Severity Reaction Status Date / Time No Known Drug Allergies Allergy Verified 11/11/20 11:44 Review of Systems Review of Systems Narrative: GENERAL: See HPI HEENT: Denies sinus pain, ear pain, sore throat, difficulty swallowing, dizziness. RESPIRATORY: See HPI CARDIOVASCULAR: Denies chest pain, palpitations, orthopnea, edema, GASTROINTESTINAL: See HP : Denies dysuria, frequency, incontinence, hematuria, urinary retention. MUSCULOSKELETAL: denies weakness, joint pain, or bony pain SKIN: Denies rash, skin lesions, or other NEUROLOGIC: Denies weakness, headache, numbness, change in speech, confusion, seizures, incoordination. PSYCHIATRIC: No concerning psychosocial issues. 12 point review of systems is negative except for those stated above Patient History Medical History (Updated 11/21/20 @ 01:14 by Nakul Bradshaw DO) Depression Surgical History H/O: hysterectomy Hx of appendectomy Social History household members: none Smoking Status: Former smoker alcohol intake: current substance use type: does not use Smoking Status: Former smoker Substance Use Type: does not use Exam Narrative Exam Narrative: GENERAL: [85] year old patient appears stated age. Well- developed patient, in mild distress. HEAD: Atraumatic. Normocephalic. EYES: Pale conjunctiva Pupils equal round and reactive. Extraocular motions intact. No scleral icterus. No injection or drainage. ENT: Nose without bleeding, purulent drainage. Throat without erythema, tonsillar hypertrophy or exudate. Airway patent. NECK: Trachea midline. Non tender CARDIOVASCULAR: Regular rate and rhythm without murmurs, gallops, or rubs. RESPIRATORY: Clear to auscultation. Breath sounds equal bilaterally. No wheezes, rales, or rhonchi. GASTROINTESTINAL: Abdomen soft, non-tender, nondistended. EXTREMITIES: No edema or joint tenderness. BACK: Nontender without deformity or crepitance. No flank tenderness. NEURO: AOx3. SKIN: No rash or erythema of visible areas Initial Vital Signs Initial Vital Signs: Vital Signs Temperature 99.5 F 11/20/20 22:25 Pulse Rate 89 11/20/20 22:25 Respiratory Rate 18 11/20/20 22:25 Blood Pressure 104/47 L 11/20/20 22:25 Pulse Oximetry 99 11/20/20 22:25 Course Orders Ordered: ED Orders 11/20/20 21:58 EKG-12 Lead Stat 11/20/20 22:28 COVID19 - ADMIT ([facility] swab/PCR) Stat Complete Blood Count AUTO DIFF Stat Comprehensive Metabolic Panel Stat Packed Cells Stat Partial Thromboplastin Time Stat Prothrombin Time INR Stat Type and Screen Stat Discontinued Medications Ondansetron HCl (Ondansetron 4 Mg/2 Ml Inj) 4 mg IV NOW ONE Stop: 11/20/20 21:59 Last Admin: 11/20/20 22:39 Dose: 4 mg Documented by: OSCAR Pantoprazole Sodium (Pantoprazole 40 Mg Vial) 80 mg IV NOW ONE Stop: 11/20/20 21:59 Last Admin: 11/20/20 22:40 Dose: 80 mg Documented by: OSCAR Consultations Consultation #1: Dr. Ernandez happy to consult in hospital. Requests patient remain NPO Consultation #2: Dr. Mcclendon happy to accept. Requests patient admitted to Dr. Villegas Vital Signs Vital signs: Vital Signs - 8 hr 11/20/20 22:25 11/20/20 22:40 11/20/20 22:57 Temperature 99.5 F Pulse Rate 89 77 Respiratory Rate 18 22 Blood Pressure 104/47 L Pulse Oximetry 99 98 98 11/20/20 23:00 11/20/20 23:30 11/20/20 23:52 Temperature Pulse Rate 75 79 76 Respiratory Rate 21 22 25 H Blood Pressure 103/54 L Pulse Oximetry 98 97 99 11/20/20 23:55 11/21/20 00:00 11/21/20 00:10 Temperature 98.9 F 98.8 F Pulse Rate 75 75 75 Respiratory Rate 18 23 24 Blood Pressure 103/54 L 104/55 L 109/55 L Pulse Oximetry 97 98 11/21/20 00:15 11/21/20 00:30 Temperature Pulse Rate 75 80 Respiratory Rate 21 23 Blood Pressure 107/59 L 112/58 L Pulse Oximetry 98 97 MDM - Recheck/Abnormal Lab/Rx Lab Data Result diagrams: 11/20/20 22:28 11/20/20 22:28 Labs: Lab Results 11/20/20 11/20/20 11/20/20 Range/Units 22:28 22:28 22:28 WBC 8.7 (4.5-11.0) X10^3/uL RBC 1.78 L (4.0-5.2) X10^6/uL Hgb 5.5 L* (12.0-16.0) g/dL Hct 17.1 L* (36-46) % MCV 96.0 D (80-100) fL MCH 31.0 (26-34) PG MCHC 32.3 (30-36) % RDW 20.1 H (11.6-14.8) % Plt Count 363 (150-400) X10^3/uL Neut % (Auto) 74.4 (50-75) % Lymph % (Auto) 15.8 L (25-40) % [place] % (Auto) 7.7 (3-14) % Eos % (Auto) 1.2 L (2-4) % Baso % (Auto) 0.9 (0-2) % Neut # (Auto) 6500 (1957-6862) /uL Lymph # (Auto) 1400 (8012-5203) /uL [place] # (Auto) 700 (0-900) /uL Eos # (Auto) 100 (0-450) /uL Baso # (Auto) 100 (0-100) /uL RBC Morphology See below Polychromasia 1+ H Anisocytosis 1+ H PT (10.1-12.7) SECONDS INR (0.9-1.3) APTT (26.4-36.2) SECONDS Sodium 136 L (137-145) mmol/L Potassium 4.0 (3.4-5.1) mmol/L Chloride 102 (98-107) mmol/L Carbon Dioxide 30 (22-32) mmol/L BUN 24 H (7-17) mg/dL Creatinine 1.02 (0.52-1.04) mg/dL Estimated GFR 51.5 L (>60) mL/min BUN/Creatinine Ratio 23.5 H (6-22) Glucose 101 (80-110) mg/dL Calcium 8.9 (8.4-10.2) mg/dL Total Bilirubin 0.1 L (0.2-1.3) mg/dL AST 38 H (14-36) IU/L ALT 17 (<35) IU/L Alkaline Phosphatase 46 (38-126) U/L Total Protein 5.2 L (6.3-8.2) g/dL Albumin 2.9 L (3.5-5.0) g/dL Globulin 2.3 (1.7-4.1) g/dL Albumin/Globulin Ratio 1.3 (1.0-2.8) SARS-CoV-2 (PCR) (Negative) Blood Type O Positive Antibody Screen Negative Crossmatch See Detail 11/20/20 11/20/20 Range/Units 22:28 22:28 WBC (4.5-11.0) X10^3/uL RBC (4.0-5.2) X10^6/uL Hgb (12.0-16.0) g/dL Hct (36-46) % MCV (80-100) fL MCH (26-34) PG MCHC (30-36) % RDW (11.6-14.8) % Plt Count (150-400) X10^3/uL Neut % (Auto) (50-75) % Lymph % (Auto) (25-40) % [place] % (Auto) (3-14) % Eos % (Auto) (2-4) % Baso % (Auto) (0-2) % Neut # (Auto) (1204-9659) /uL Lymph # (Auto) (4657-8505) /uL [place] # (Auto) (0-900) /uL Eos # (Auto) (0-450) /uL Baso # (Auto) (0-100) /uL RBC Morphology Polychromasia Anisocytosis PT 11.4 (10.1-12.7) SECONDS INR 1.0 (0.9-1.3) APTT 26 L (26.4-36.2) SECONDS Sodium (137-145) mmol/L Potassium (3.4-5.1) mmol/L Chloride (98-107) mmol/L Carbon Dioxide (22-32) mmol/L BUN (7-17) mg/dL Creatinine (0.52-1.04) mg/dL Estimated GFR (>60) mL/min BUN/Creatinine Ratio (6-22) Glucose (80-110) mg/dL Calcium (8.4-10.2) mg/dL Total Bilirubin (0.2-1.3) mg/dL AST (14-36) IU/L ALT (<35) IU/L Alkaline Phosphatase (38-126) U/L Total Protein (6.3-8.2) g/dL Albumin (3.5-5.0) g/dL Globulin (1.7-4.1) g/dL Albumin/Globulin Ratio (1.0-2.8) SARS-CoV-2 (PCR) Negative (Negative) Blood Type Antibody Screen Crossmatch Discharge Plan Departure Patient Disposition: Admitted As Inpatient Clinical Impression: GI bleed, Anemia
[2020-11-20] MEDS: ONDANSETRON 4 MG/2 ML INJ IV (22:39)
[2020-11-20] MEDS: PANTOPRAZOLE 40 MG VIAL 80 MG IV (22:40)
[2020-11-20 22:55] LABS: Add Manual Diff / Slide Review NO; Basophils Absolute Auto 100 /uL (0-100); Basophils Percent Auto 0.9 % (0-2); Eosinophils Absolute Auto 100 /uL (0-450); Eosinophils Percent Auto 1.2 % (2-4); Lymphocytes Absolute Auto 1400 /uL (1100-4500); Lymphocytes Percent Auto 15.8 % (25-40); Mean Corpuscular HGB Conc 32.3 % (30-36); Monocytes Absolute Auto 700 /uL (0-900); Monocytes Percent Auto 7.7 % (3-14); Neutrophils Absolute Auto 6500 /uL (1500-7000); Neutrophils Percent Auto 74.4 % (50-75); Platelet Count 363 X10^3/uL (150-400); Red Blood Cell Count 1.78 X10^6/uL (4.0-5.2); Red Cell Distribution Width 20.1 % (11.6-14.8); White Blood Cell Count 8.7 X10^3/uL (4.5-11.0)
[2020-11-20 22:57] LABS: Hematocrit 17.1 % (36-46); Hemoglobin 5.5 g/dL (12.0-16.0)
[2020-11-20 23:02] LABS: Prothrombin Time 11.4 SECONDS (10.1-12.7)
[2020-11-20 23:05] LABS: PTT Partial Thromboplastin Tim 26 SECONDS (26.4-36.2)
[2020-11-20 23:21] LABS: Alanine Aminotransferase 17 IU/L (<35); Albumin 2.9 g/dL (3.5-5.0); Albumin Globulin Ratio 1.3 (1.0-2.8); Alkaline Phosphatase 46 U/L (38-126); Aspartate Aminotransferase 38 IU/L (14-36); BUN Creatinine Ratio 23.5 (6-22); Bilirubin Total 0.1 mg/dL (0.2-1.3); Blood Urea Nitrogen 24 mg/dL (7-17); Calcium 8.9 mg/dL (8.4-10.2); Carbon Dioxide 30 mmol/L (22-32); Chloride 102 mmol/L (98-107); Estimated Glomerular Filt Rate 51.5 mL/min (>60); Globulin 2.3 g/dL (1.7-4.1); Glucose 101 mg/dL (80-110); HEMOLYSIS < 15 (0-50); Sodium 136 mmol/L (137-145); Total Protein 5.2 g/dL (6.3-8.2)
[2020-11-20 23:32] LABS: COVID19 - ADMIT (NP swab/PCR) Negative (Negative)
[2020-11-21] VITALS (27 sets, daily range): BP systolic 97–152; BP diastolic 51–84; PULSE 58–87; RESP 16–24; TEMP 36.1–37.1; O2SAT 92–100; BMI 19.3
[2020-11-21 00:35] LABS: Anisocytosis 1+; Polychromasia 1+
--- NOTE | 2020-11-21 02:00 | PC.ADMIT ---
[id number] Admission Note: Patient arrived to the unit via bed from the ED at 0135. Patient was currently getting first unit of blood, was A/O, denied pain or SOB, and VS were stable. Patient was oriented to room, call light, and fall procedures. Patient did not have any other requests at this time. The patient,Elzbieta Darby,85 y/o, was given written information regarding hospital policies, unit procedures and contact persons. Patient's smoking status: Former smoker. Vital Signs - 8 hr 11/20/20 22:57 11/20/20 23:00 11/20/20 23:30 Temperature Pulse Rate 75 79 Respiratory Rate 21 22 Blood Pressure Pulse Oximetry 98 98 97 11/20/20 23:52 11/20/20 23:55 11/21/20 00:00 Temperature 98.9 F Pulse Rate 76 75 75 Respiratory Rate 25 H 18 23 Blood Pressure 103/54 L 103/54 L 104/55 L Pulse Oximetry 99 97 11/21/20 00:10 11/21/20 00:15 11/21/20 00:30 Temperature 98.8 F Pulse Rate 75 75 80 Respiratory Rate 24 21 23 Blood Pressure 109/55 L 107/59 L 112/58 L Pulse Oximetry 98 98 97 11/21/20 00:45 11/21/20 01:00 11/21/20 01:15 Temperature Pulse Rate 75 73 73 Respiratory Rate 20 20 19 Blood Pressure 100/54 L 102/53 L 97/56 L Pulse Oximetry 97 93 92 11/21/20 01:42 11/21/20 03:12 11/21/20 03:17 Temperature 97.9 F 97.4 F L 97.4 F L Pulse Rate 76 70 70 Respiratory Rate 18 18 18 Blood Pressure 104/51 L 121/68 121/68 Pulse Oximetry 98 94 11/21/20 03:20 11/21/20 03:44 11/21/20 06:03 Temperature 97.4 F L 97.6 F 98.5 F Pulse Rate 70 69 68 Respiratory Rate 18 17 16 Blood Pressure 121/68 111/59 L 118/65 Pulse Oximetry
--- NOTE | 2020-11-21 07:21 | PM.HP.1 ---
History of Present Illness History of Present Illness Date Patient Seen: 11/21/20 Time Patient Seen: 07:21 Chief complaint: Anemia Narrative: 85-year-old female is admitted for worsening GI bleed. Recent hospital admission from 11/11/2020 to 11/14/2020 for same complaint. Initially, was admitted because of increasing dizziness and melena, hemoglobin/hematocrit 5.1/16.1. A 3 cm pedunculated mass found at time of EGD, incompletely removed via hot snare due to its size and concern for perforation. Due to its size, masss was removed piecemeal. Pathology showed gastric mucosa with no diagnostic abnormality. In the center of the lesion, crowded small capillaries were seen, possibly due to a healed/bleeding erosion, granulation tissue, or hemangioma. Unsampled neoplasm could not be excluded. Patient initially received 2 units of blood upon admission and another 2 units after her procedure. On day of discharge, her bleeding seemed to be stabilized and her discharge hemoglobin/ hematocrit was 8.9/26.8. One week later, she was seen in clinic with worsening symptoms of dizziness and melena. CBC at that time revealed a hemoglobin/ hematocrit of 6.5/18.5 and she was advised to go directly to the emergency room, she arrived via EMS. Hemoglobin/ hematocrit upon presentation to the ED was 5.5/17.1. BUN elevated at 24. Vital signs included a temperature of 99.5?, pulse 89, respirations 18, blood pressure 104/47, and O2 saturation 99% on room air. She did receive another 2 units of packed red blood cells, 4 mg of Zofran and 80 mg of IV Protonix prior to being transferred to the floor. Dr. Ernandez has already been consulted. Patient reports an uneventful night. She is feeling weak but improved since she received blood, less dizzy. Plan is for EGD later today. She is currently NPO. Denies nausea or vomiting. Endorses taking daily baby aspirin, otherwise no regular NSAIDs. Former smoker. Denies alcohol use. Last colonoscopy in 2011 showed a tubular adenoma at 50 cm, tiny. History of anal stretching procedure. Past medical history: Anxiety/depression Hyperlipidemia, diet controlled Dyspepsia Breast cancer status post left lumpectomy with treatment with radiation and tamoxifen Tobacco dependence, history of Tubular adenoma of colon Past surgical history: Total hysterectomy with BSO secondary to fibroids Polypectomy Left breast lumpectomy Appendectomy Colonoscopies, multiple Rectal dilatation Family history: Father with heart disease, 2 brothers with cancer of unknown etiology in the 80s Social history: . Good family support. Patient History Medical History Depression Surgical History H/O: hysterectomy Hx of appendectomy Family & Social History Social History: household members none Prior Living Arrangements House Safety & Behavioral: Feels Safe in Current Yes Environment Been Physically Hurt or No Threatened By a Person Suicidal Ideation Description None Suicide Plan Description No Plan Tobacco & Substance use: Smoking Status Former smoker alcohol intake current Substance Use Type does not use Meds Home Medications and Allergies Home Medications Medication Instructions Recorded Confirmed Type aspirin 81 mg chewable tablet 81 mg PO DAILY #0 07/01/10 11/21/20 History calcium carbonate-vitamin D3 600 600 mg PO BID #0 07/01/10 11/21/20 History mg calcium-200 unit capsule (Calcium 600 + D(3)) omega 7-wlw-fre-fish oil 1,000 mg 1,000 iu PO BID #0 07/01/10 11/21/20 History (120 mg-180 mg) capsule (Fish Oil) cholecalciferol (vitamin D3) 50 1 cap PO DAILY 12/20/17 11/21/20 History mcg (2,000 unit) capsule (Vitamin D3) flaxseed oil 1,000 mg capsule 1 cap PO BID 12/20/17 11/21/20 History omeprazole 20 mg capsule,delayed 40 mg PO DAILY 12/31/17 11/21/20 History release quetiapine 25 mg tablet 50 mg PO QPM 12/31/17 11/21/20 History venlafaxine 37.5 mg 150 mg PO QAM cap 12/31/17 11/21/20 History capsule,extended release 24 hr Allergies Allergy/AdvReac Type Severity Reaction Status Date / Time No Known Drug Allergies Allergy Verified 11/11/20 11:44 Review of Systems Review of Systems Narrative: See HPI. Exam Vital Signs (past 8 hours): - 11/20/20 23:30 11/20/20 23:52 11/20/20 23:55 Temperature 98.9 F Pulse Rate 79 76 75 Respiratory Rate 22 25 H 18 Blood Pressure 103/54 L 103/54 L Pulse Oximetry 97 99 11/21/20 00:00 11/21/20 00:10 11/21/20 00:15 Temperature 98.8 F Pulse Rate 75 75 75 Respiratory Rate 23 24 21 Blood Pressure 104/55 L 109/55 L 107/59 L Pulse Oximetry 97 98 98 11/21/20 00:30 11/21/20 00:45 11/21/20 01:00 Temperature Pulse Rate 80 75 73 Respiratory Rate 23 20 20 Blood Pressure 112/58 L 100/54 L 102/53 L Pulse Oximetry 97 97 93 11/21/20 01:15 11/21/20 01:42 11/21/20 03:12 Temperature 97.9 F 97.4 F L Pulse Rate 73 76 70 Respiratory Rate 19 18 18 Blood Pressure 97/56 L 104/51 L 121/68 Pulse Oximetry 92 98 94 11/21/20 03:17 11/21/20 03:20 11/21/20 03:44 Temperature 97.4 F L 97.4 F L 97.6 F Pulse Rate 70 70 69 Respiratory Rate 18 18 17 Blood Pressure 121/68 121/68 111/59 L Pulse Oximetry 11/21/20 06:03 Temperature 98.5 F Pulse Rate 68 Respiratory Rate 16 Blood Pressure 118/65 Pulse Oximetry Oxygen Delivery Method Room Air Narrative Exam Narrative: GENERAL: Alert and oriented, appearing stated age, weak HEENT: Head normocephalic/atraumatic. LUNGS: Clear to ausculation bilaterally, no wheezes, rhonchi or rales. CV: Normal S1 and S2 with regular rate and rhythm, no audible murmurs, rubs or gallops. ABDOMEN: Soft, non-tender, non-distended, no organomegaly. Positive bowel sounds. EXTREMITIES: No clubbing, cyanosis, or edema. NEURO: Cranial nerves II through XII grossly intact, no focal deficits. PSYCH: Alert and oriented x 3. SKIN: No concerning lesions. Objective Labs Result Diagrams: 11/21/20 07:40 11/21/20 07:40 Labs: Laboratory Results - last 24 hr 11/20/20 11/20/20 11/20/20 22:28 22:28 22:28 WBC 8.7 RBC 1.78 L Hgb 5.5 L* Hct 17.1 L* MCV 96.0 D MCH 31.0 MCHC 32.3 RDW 20.1 H Plt Count 363 Neut % (Auto) 74.4 Lymph % (Auto) 15.8 L [place] % (Auto) 7.7 Eos % (Auto) 1.2 L Baso % (Auto) 0.9 Neut # (Auto) 6500 Lymph # (Auto) 1400 [place] # (Auto) 700 Eos # (Auto) 100 Baso # (Auto) 100 RBC Morphology See below Polychromasia 1+ H Anisocytosis 1+ H PT INR APTT Sodium 136 L Potassium 4.0 Chloride 102 Carbon Dioxide 30 BUN 24 H Creatinine 1.02 Estimated GFR 51.5 L BUN/Creatinine Ratio 23.5 H Glucose 101 Calcium 8.9 Total Bilirubin 0.1 L AST 38 H ALT 17 Alkaline Phosphatase 46 Total Protein 5.2 L Albumin 2.9 L Globulin 2.3 Albumin/Globulin Ratio 1.3 SARS-CoV-2 (PCR) Blood Type O Positive Antibody Screen Negative Crossmatch See Detail 11/20/20 11/20/20 22:28 22:28 WBC RBC Hgb Hct MCV MCH MCHC RDW Plt Count Neut % (Auto) Lymph % (Auto) [place] % (Auto) Eos % (Auto) Baso % (Auto) Neut # (Auto) Lymph # (Auto) [place] # (Auto) Eos # (Auto) Baso # (Auto) RBC Morphology Polychromasia Anisocytosis PT 11.4 INR 1.0 APTT 26 L Sodium Potassium Chloride Carbon Dioxide BUN Creatinine Estimated GFR BUN/Creatinine Ratio Glucose Calcium Total Bilirubin AST ALT Alkaline Phosphatase Total Protein Albumin Globulin Albumin/Globulin Ratio SARS-CoV-2 (PCR) Negative Blood Type Antibody Screen Crossmatch Assessment & Plan Assessment & Plan narrative: 1. GI Bleed, likely upper Plan: Patient will need repeat EGD today, Dr. Ernandez consulting. In the meantime, adding Protonix 40 mg p.o. b.i.d. and octreotide drip. Will trend labs closely, anticipate need for repeat blood transfusion. Currently vital signs stable, awaiting post-transfusion CBC. On telemetry and continuous oxygen monitoring. 2. Acute blood loss anemia, secondary to #1. Plan: Please see #1. 3. Anxiety/depressoin, chronic Plan: Continue home venlafaxine and quetiapine when able to take orals. DVT prophylaxis: SCDs FEN: NPO Code: full COVID: negative Patient's expected length of stay: Greater than 2 midnights. Patient is under inpatient status due to severity of presenting symptoms, complexity of treatment plan, and risk of adverse event.
[2020-11-21 08:00] LABS: Hematocrit 25.2 % (36-46); Hemoglobin 8.3 g/dL (12.0-16.0); Mean Corpuscular HGB Conc 32.9 % (30-36); Mean Corpuscular Hemoglobin 30.3 PG (26-34); Mean Corpuscular Volume 92.1 fL (80-100); Platelet Count 296 X10^3/uL (150-400); Red Blood Cell Count 2.74 X10^6/uL (4.0-5.2); Red Cell Distribution Width 17.3 % (11.6-14.8); White Blood Cell Count 5.4 X10^3/uL (4.5-11.0)
[2020-11-21] MEDS: OCTREOTIDE 100 MCG/ML VIAL 50 MCG IV (08:03)
[2020-11-21 08:06] LABS: BUN Creatinine Ratio 22.6 (6-22); Blood Urea Nitrogen 21 mg/dL (7-17); Calcium 8.1 mg/dL (8.4-10.2); Carbon Dioxide 28 mmol/L (22-32); Chloride 109 mmol/L (98-107); Estimated Glomerular Filt Rate 57.3 mL/min (>60); Glucose 88 mg/dL (80-110); HEMOLYSIS < 15 (0-50); Potassium 4.2 mmol/L (3.4-5.1); Sodium 139 mmol/L (137-145)
--- NOTE | 2020-11-21 08:22 | P.HP_ITS ---
History of Present Illness History of Present Illness Date Patient Seen: 11/21/20 Time Patient Seen: 08:23 Date of Onset of Symptoms: 11/21/20 Chief complaint: Anemia Narrative: Family history for colon polyps in brother. Father diagnosed at age 80 with colon cancer Patient History Medical History Depression Surgical History H/O: hysterectomy Hx of appendectomy Family & Social History Social History: household members none Prior Living Arrangements House Safety & Behavioral: Feels Safe in Current Yes Environment Been Physically Hurt or No Threatened By a Person Suicidal Ideation Description None Suicide Plan Description No Plan Tobacco & Substance use: Smoking Status Former smoker alcohol intake current Substance Use Type does not use Meds Home Medications and Allergies Home Medications Medication Instructions Recorded Confirmed Type aspirin 81 mg chewable tablet 81 mg PO DAILY #0 07/01/10 11/21/20 History calcium carbonate-vitamin D3 600 600 mg PO BID #0 07/01/10 11/21/20 History mg calcium-200 unit capsule (Calcium 600 + D(3)) omega 9-upv-ufs-fish oil 1,000 mg 1,000 iu PO BID #0 07/01/10 11/21/20 History (120 mg-180 mg) capsule (Fish Oil) cholecalciferol (vitamin D3) 50 1 cap PO DAILY 12/20/17 11/21/20 History mcg (2,000 unit) capsule (Vitamin D3) flaxseed oil 1,000 mg capsule 1 cap PO BID 12/20/17 11/21/20 History omeprazole 20 mg capsule,delayed 40 mg PO DAILY 12/31/17 11/21/20 History release quetiapine 25 mg tablet 50 mg PO QPM 12/31/17 11/21/20 History venlafaxine 37.5 mg 150 mg PO QAM cap 12/31/17 11/21/20 History capsule,extended release 24 hr Allergies Allergy/AdvReac Type Severity Reaction Status Date / Time No Known Drug Allergies Allergy Verified 11/11/20 11:44 Review of Systems Review of Systems ROS: Yes All systems reviewed with the patient and are negative except as otherwise documented Exam Vital Signs (past 8 hours): - 11/21/20 00:30 11/21/20 00:45 11/21/20 01:00 Temperature Pulse Rate 80 75 73 Respiratory Rate 23 20 20 Blood Pressure 112/58 L 100/54 L 102/53 L Pulse Oximetry 97 97 93 11/21/20 01:15 11/21/20 01:42 11/21/20 03:12 Temperature 97.9 F 97.4 F L Pulse Rate 73 76 70 Respiratory Rate 19 18 18 Blood Pressure 97/56 L 104/51 L 121/68 Pulse Oximetry 92 98 94 11/21/20 03:17 11/21/20 03:20 11/21/20 03:44 Temperature 97.4 F L 97.4 F L 97.6 F Pulse Rate 70 70 69 Respiratory Rate 18 18 17 Blood Pressure 121/68 121/68 111/59 L Pulse Oximetry 11/21/20 06:03 11/21/20 06:10 11/21/20 07:52 Temperature 98.5 F 98.5 F 97.9 F Pulse Rate 68 68 69 Respiratory Rate 16 20 20 Blood Pressure 118/65 118/65 129/62 Pulse Oximetry 95 96 Oxygen Delivery Method Room Air Const General: cooperative and healthy appearing Orientation: alert and oriented x3 [facility] Head: normal to inspection, normocephalic and atraumatic Eyes Sclera: sclerae normal Neck Neck: normal visual inspection and trachea midline Chest Chest: normal inspection of the chest Resp Effort & Inspection: normal respiratory effort and able to speak in complete sentences GI Inspection: normal to inspection Palpation: soft Skin General: no rashes or lesions noted Neuro General: patient alert and patient oriented x3 Cognition: normal cognition Psych Appearance: grossly normal Objective Labs Result Diagrams: 11/21/20 07:40 11/21/20 07:40 Labs: Laboratory Results - last 24 hr 11/20/20 11/20/20 11/20/20 22:28 22:28 22:28 WBC 8.7 RBC 1.78 L Hgb 5.5 L* Hct 17.1 L* MCV 96.0 D MCH 31.0 MCHC 32.3 RDW 20.1 H Plt Count 363 Neut % (Auto) 74.4 Lymph % (Auto) 15.8 L [place] % (Auto) 7.7 Eos % (Auto) 1.2 L Baso % (Auto) 0.9 Neut # (Auto) 6500 Lymph # (Auto) 1400 [place] # (Auto) 700 Eos # (Auto) 100 Baso # (Auto) 100 RBC Morphology See below Polychromasia 1+ H Anisocytosis 1+ H PT INR APTT Sodium 136 L Potassium 4.0 Chloride 102 Carbon Dioxide 30 BUN 24 H Creatinine 1.02 Estimated GFR 51.5 L BUN/Creatinine Ratio 23.5 H Glucose 101 Calcium 8.9 Total Bilirubin 0.1 L AST 38 H ALT 17 Alkaline Phosphatase 46 Total Protein 5.2 L Albumin 2.9 L Globulin 2.3 Albumin/Globulin Ratio 1.3 SARS-CoV-2 (PCR) Blood Type O Positive Antibody Screen Negative Crossmatch See Detail 11/20/20 11/20/20 11/21/20 22:28 22:28 07:40 WBC 5.4 RBC 2.74 L Hgb 8.3 L Hct 25.2 L MCV 92.1 D MCH 30.3 MCHC 32.9 RDW 17.3 H Plt Count 296 Neut % (Auto) Lymph % (Auto) [place] % (Auto) Eos % (Auto) Baso % (Auto) Neut # (Auto) Lymph # (Auto) [place] # (Auto) Eos # (Auto) Baso # (Auto) RBC Morphology Polychromasia Anisocytosis PT 11.4 INR 1.0 APTT 26 L Sodium Potassium Chloride Carbon Dioxide BUN Creatinine Estimated GFR BUN/Creatinine Ratio Glucose Calcium Total Bilirubin AST ALT Alkaline Phosphatase Total Protein Albumin Globulin Albumin/Globulin Ratio SARS-CoV-2 (PCR) Negative Blood Type Antibody Screen Crossmatch 11/21/20 07:40 WBC RBC Hgb Hct MCV MCH MCHC RDW Plt Count Neut % (Auto) Lymph % (Auto) [place] % (Auto) Eos % (Auto) Baso % (Auto) Neut # (Auto) Lymph # (Auto) [place] # (Auto) Eos # (Auto) Baso # (Auto) RBC Morphology Polychromasia Anisocytosis PT INR APTT Sodium 139 Potassium 4.2 Chloride 109 H Carbon Dioxide 28 BUN 21 H Creatinine 0.93 Estimated GFR 57.3 L BUN/Creatinine Ratio 22.6 H Glucose 88 Calcium 8.1 L Total Bilirubin AST ALT Alkaline Phosphatase Total Protein Albumin Globulin Albumin/Globulin Ratio SARS-CoV-2 (PCR) Blood Type Antibody Screen Crossmatch Assessment & Plan Assessment & Plan narrative: colon cancer screening with colonoscopy and moderate sedation for family history of colon cancer and polyps. Last colonoscopy was 15 yrs ago. COVID-19 COVID-19 status: Negative Time Spent With Patient Time with patient: 15-24 minutes
[2020-11-21] MEDS: PANTOPRAZOLE 40 MG VIAL IV ×2 (08:31→20:56)
[2020-11-21 08:32] LABS: Hypochromasia 1+; Neutrophils Absolute Manual 3726 /uL (3000-5900); Polychromasia 1+; Total Cells Counted 100
[2020-11-21] MEDS: OCTREOTIDE 500 MCG in SODIUM CHLORIDE 0.9% 100 ML 10.1 ML IV ×2 (08:41→23:15)
--- NOTE | 2020-11-21 09:05 | CM.DANOTE ---
Discharge Planning/Care Management DCP: assessment: case received, EMR reviewed and met with pt. Introduced self and role. Pt is an 85 year old female who admitted early this morning to care of PCP: Gerry Villegas Payer: Medicare and Assurely. Admission status: in review per UR RN READMIT: noted: pt was here 11/11-11/14 with a d/c to home and new referral for [facility]. Family were provided with local resources in the [facility]. Pt confirms that [facility] had been out to see her and she called them last night to tell them she was in the hospital. Request given to [facility] to fax clinical notes to [facility] and will call the HH liaison Sierra to alert her to this/done Pt confirms that her son Irving, who did visit during last admission, has returned home to [facility]. She says her designated visitor/advocate if her son Beny: [place] with contact info on face sheet. P: will follow prn as POC proceeds and assist with any d/c issues that may arise. CM Discharge Assessment Start: 11/21/20 09:01 Freq: Status: Active Protocol: Document 11/21/20 09:03 ITV (Rec: 11/21/20 09:05 ITV [id number]) Discharge Planning Assessment Advance Directives? No History Provided By Patient,Medical Record Prior Living Arrangements House Comment lives in an [place] housing community. single level, no stairs Household Members none Independent with ADL's Yes Is patient alert and oriented? Yes Community Services used prior to Home Health Nurse admission: Comment open to [facility] Review Status In Process
--- NOTE | 2020-11-21 10:04 | CM.DPNOTE ---
Faxed referral packet to [facility] per Renate and received fax conf. Cristin Cowart CM Asst.
--- NOTE | 2020-11-21 10:58 | PC.NURSE ---
Day shift: Pt off unit for procedure at approx 1035. SL.
[2020-11-21] MEDS: LACTATED RINGERS 1,000 ML 42 ML IV (11:19)
--- NOTE | 2020-11-21 12:05 | PC.NURSE ---
Day shift: Pt remains off of AC unit at this time (1205).
--- NOTE | 2020-11-21 12:14 | PM.CN ---
History of Present Illness Consult details Date Patient Seen: 11/21/20 Time Patient Seen: 12:15 Chief complaint: Anemia Requesting provider: Nakul Bradshaw Narrative: recent EGD with removal of benign bleeding gastric polyp. Return with SOB, light headed and fatigue. Confirmed profound anemia. No reports active GI bleeding or blood in stools. Transfusion required this hospital stay. Meds Home Medications and Allergies Home Medications Medication Instructions Recorded Confirmed Type aspirin 81 mg chewable tablet 81 mg PO DAILY #0 07/01/10 11/21/20 History calcium carbonate-vitamin D3 600 600 mg PO BID #0 07/01/10 11/21/20 History mg calcium-200 unit capsule (Calcium 600 + D(3)) omega 2-hsu-cvn-fish oil 1,000 mg 1,000 iu PO BID #0 07/01/10 11/21/20 History (120 mg-180 mg) capsule (Fish Oil) cholecalciferol (vitamin D3) 50 1 cap PO DAILY 12/20/17 11/21/20 History mcg (2,000 unit) capsule (Vitamin D3) flaxseed oil 1,000 mg capsule 1 cap PO BID 12/20/17 11/21/20 History omeprazole 20 mg capsule,delayed 40 mg PO DAILY 12/31/17 11/21/20 History release quetiapine 25 mg tablet 50 mg PO QPM 12/31/17 11/21/20 History venlafaxine 37.5 mg 150 mg PO QAM cap 12/31/17 11/21/20 History capsule,extended release 24 hr Allergies Allergy/AdvReac Type Severity Reaction Status Date / Time No Known Drug Allergies Allergy Verified 11/11/20 11:44 Exam Vital Signs (past 8 hours): - 11/21/20 06:03 11/21/20 06:10 11/21/20 07:52 Temperature 98.5 F 98.5 F 97.9 F Pulse Rate 68 68 69 Respiratory Rate 16 20 20 Blood Pressure 118/65 118/65 129/62 Pulse Oximetry 95 96 11/21/20 11:13 Temperature 98.6 F Pulse Rate 72 Respiratory Rate 16 Blood Pressure 134/78 Pulse Oximetry 100 Oxygen Delivery Method Room Air Oxygen Flow Rate 0 Const General: cooperative and comfortable Nutritional Appearance: cachectic HENMT Head: normocephalic and atraumatic Eyes Sclera: sclerae normal Neck Neck: trachea midline Chest Chest: normal inspection of the chest Resp Effort & Inspection: normal respiratory effort and able to speak in complete sentences Other: no wheezing no stridor Cardio Rate: regular rate Other: regular rythm with ectopy GI Inspection: normal to inspection Palpation: soft Skin General: atrophy and dry skin Neuro General: patient alert and patient awake Psych Mental Status: mental status grossly normal Affect: normal affect Judgment: fair Objective Labs Result Diagrams: 11/21/20 07:40 11/21/20 07:40 Labs: Laboratory Results - last 24 hr 11/20/20 11/20/20 11/20/20 22:28 22:28 22:28 WBC 8.7 RBC 1.78 L Hgb 5.5 L* Hct 17.1 L* MCV 96.0 D MCH 31.0 MCHC 32.3 RDW 20.1 H Plt Count 363 Neut % (Auto) 74.4 Lymph % (Auto) 15.8 L [place] % (Auto) 7.7 Eos % (Auto) 1.2 L Baso % (Auto) 0.9 Neut # (Auto) 6500 Lymph # (Auto) 1400 [place] # (Auto) 700 Eos # (Auto) 100 Baso # (Auto) 100 Total Counted Seg Neutrophils % Band Neutrophils % Lymphocytes % (Manual) Atypical Lymphs % Monocytes % (Manual) Eosinophils % (Manual) Neutrophils # (Manual) RBC Morphology See below Polychromasia 1+ H Hypochromasia Anisocytosis 1+ H PT INR APTT Sodium 136 L Potassium 4.0 Chloride 102 Carbon Dioxide 30 BUN 24 H Creatinine 1.02 Estimated GFR 51.5 L BUN/Creatinine Ratio 23.5 H Glucose 101 Calcium 8.9 Total Bilirubin 0.1 L AST 38 H ALT 17 Alkaline Phosphatase 46 Total Protein 5.2 L Albumin 2.9 L Globulin 2.3 Albumin/Globulin Ratio 1.3 SARS-CoV-2 (PCR) Blood Type O Positive Antibody Screen Negative Crossmatch See Detail 11/20/20 11/20/20 11/21/20 22:28 22:28 07:40 WBC 5.4 RBC 2.74 L Hgb 8.3 L Hct 25.2 L MCV 92.1 D MCH 30.3 MCHC 32.9 RDW 17.3 H Plt Count 296 Neut % (Auto) Lymph % (Auto) [place] % (Auto) Eos % (Auto) Baso % (Auto) Neut # (Auto) Lymph # (Auto) [place] # (Auto) Eos # (Auto) Baso # (Auto) Total Counted 100 Seg Neutrophils % 67.0 Band Neutrophils % 2.0 L Lymphocytes % (Manual) 24.0 L Atypical Lymphs % 1.0 H Monocytes % (Manual) 4.0 Eosinophils % (Manual) 2.0 Neutrophils # (Manual) 3726 RBC Morphology Not Reportable Polychromasia 1+ H Hypochromasia 1+ H Anisocytosis PT 11.4 INR 1.0 APTT 26 L Sodium Potassium Chloride Carbon Dioxide BUN Creatinine Estimated GFR BUN/Creatinine Ratio Glucose Calcium Total Bilirubin AST ALT Alkaline Phosphatase Total Protein Albumin Globulin Albumin/Globulin Ratio SARS-CoV-2 (PCR) Negative Blood Type Antibody Screen Crossmatch 11/21/20 07:40 WBC RBC Hgb Hct MCV MCH MCHC RDW Plt Count Neut % (Auto) Lymph % (Auto) [place] % (Auto) Eos % (Auto) Baso % (Auto) Neut # (Auto) Lymph # (Auto) [place] # (Auto) Eos # (Auto) Baso # (Auto) Total Counted Seg Neutrophils % Band Neutrophils % Lymphocytes % (Manual) Atypical Lymphs % Monocytes % (Manual) Eosinophils % (Manual) Neutrophils # (Manual) RBC Morphology Polychromasia Hypochromasia Anisocytosis PT INR APTT Sodium 139 Potassium 4.2 Chloride 109 H Carbon Dioxide 28 BUN 21 H Creatinine 0.93 Estimated GFR 57.3 L BUN/Creatinine Ratio 22.6 H Glucose 88 Calcium 8.1 L Total Bilirubin AST ALT Alkaline Phosphatase Total Protein Albumin Globulin Albumin/Globulin Ratio SARS-CoV-2 (PCR) Blood Type Antibody Screen Crossmatch Assessment & Plan Assessment & Plan narrative: Anemia with concern of ongoing issues with the area in stomach from previous biopsy. Plan: repeat EGD COVID-19 COVID-19 status: Negative Time Spent With Patient Time with patient: 15-24 minutes
--- NOTE | 2020-11-21 12:31 | PM.OP.ENDO ---
Operative Date/Time/Diagnoses Date of procedure: 11/21/20 Time of procedure: 12:31 Pre-op diagnosis: anemia with h/o gastric polypectomy 11/14/20 Post-op diagnosis: same Procedure & Clinicians Study performed: EGD with MAC Same procedure as scheduled: Yes Indications: Profound anemia and history of gastric polypectomy on 11/14/2020 Surgeon: Alecia Ernandez Procedure Notes SCOAP/Timeout: Done Procedure in detail: Preop diagnosis: Profound anemia recurrence. History of gastric polypectomy 11 14 2020. Suspect for post polypectomy bleed Postop diagnosis: Same Operative procedure: EGD with MAC Surgeon: Hannah Ernandez MD Findings: Polypectomy site not bleeding at this time. No other gastric ulcers identified, esophagus normal. Procedure: Patient is placed in a lateral position. Scope was inserted into the esophagus advanced into the stomach. I identified the pylorus but was unable to intubate into the duodenum due to desaturation of the patient. However good visualization of the polypectomy site showed no active bleeding. There was no reflux of blood into the stomach itself. Insufflation retroflex and extraction of the scope had the above findings Patient regained oxygenation once scope was removed. Impression: No active bleeding at the polypectomy site. No new ulcerations. Plan: Return to acute care hospitalization for further treatment. Specimen(s): none sent Complications: none Impression: no active Upper GI bleed Post-procedure Plan for aftercare: Observation, continue PPI. Supportive care. Disposition: PACU
--- NOTE | 2020-11-21 13:14 | PC.NURSE ---
Day shift: Pt back on unit at approx 1305. Denies any pain or nausea. RA 98%. HR 77. SCD's tolerated. Will continue w/ plan of care. IV med per MAR infusing now.
[2020-11-21] MEDS: SODIUM CHLORIDE 0.9% 1,000 ML 42 ML IV (13:37)
--- NOTE | 2020-11-21 14:38 | PT.IIE ---
Surgery Performed Operation Date: 11/21/20 12:15 Actual Procedures p Esophagogastroduodenoscopy - Alecia Ernandez MD Medical History (Last Reviewed 11/21/20 @ 12:17 by Alecia Ernandez MD) Depression Physical Therapy Inpatient Evaluation/Re-Eval M1 PT/OT-IP Prior Functional Status Start: 11/21/20 17:54 Freq: NEEDED Status: Active Protocol: Document 11/21/20 14:38 AB (Rec: 11/21/20 18:06 AB [id number]) Medical Review Prior Functional Status Medical History Reviewed Yes Communication able to make needs known Mobility and Gait pt stated that she is independent with all mobilities and ambualtion without AD Social History Household Members none Living Arrangements House Number of Floors (Floors) One Floor Number of Stairs To Enter/Railing? pt lives in a senior housing community no steps to enter Home Environment Standard Height Toilet,Walk in Shower,Built-In Shower Seat Home Equipment Hand Held Shower,Grab Bars Near Toilet Additional Social History Comment pt stated that life alert device has been ordered already and is just waiting for it talked with son regarding assisting pt and stated that they live in [place] and may not be able to assist pt if pt needs immediate help M2 PT-IP Current Condition Start: 11/21/20 17:54 Freq: NEEDED Status: Active Protocol: Document 11/21/20 14:38 AB (Rec: 11/21/20 18:06 AB [email or web address]) Physical Therapy Current Condition Current Condition Evaluation Date 11/21/20 Treatment Diagnosis anemia; GI bleed; difficulty in walking Onset Date 11/21/20 Precautions Other Precautions BP M3 PT-IP Subjective Start: 11/21/20 17:54 Freq: NEEDED Status: Active Protocol: Document 11/21/20 14:38 AB (Rec: 11/21/20 18:06 AB [id number]) Subjective Physical Therapy Visit Type Type Initial Evaluation Visit Start Time 14:38 Visit Stop Time 15:07 Total Visit Minutes 29 Number of MATERIAL SPECIALIST Visits 0 Physical Therapy Visit Comments Patient Comments pt is agreeable to do PT Therapy Pain Assessment Pain Present Pain Present Denied Pain M4 PT-IP Mobility and Gait Start: 11/21/20 17:54 Freq: NEEDED Status: Active Protocol: Document 11/21/20 14:38 AB (Rec: 11/21/20 18:06 AB [email or web address]) PT-Bed Mobility Assessment Supine to Sit Supine to Sit Standby Assistance Sit to Supine Sit to Supine Standby Assistance PT-Transfer Assessment Sit to and From Stand Sit to and from Stand Standby Assistance Equipment Transfer Assistive Device None,Gait Belt Orthotic/Prosthetic Devices or Brace: No Transfer Ability Level of Assist Standby Assistance,Contact Guard Assistance,1 Person Assistance,Use of Upper Extremities Comments Mobility Comments BP monitored. BP in supien: 137/75. pt completed supine to sit SBA and was able to sit on EOB SBA. not c/o dizziness/ lightheadedness. BP in sitting 133/73. pt completed sit to stand SBA and was able to stand SBA using FWW for support. BP in standin/78. pt agreed to ambulate and completed without AD SBA to CGA ~ 40 ft . pt without any symptoms. requested to go back to bed. BP after ambulation sitting on EOB: 151/73. pt completed sit to supine SBA. positioned in bed. call light and table placed within reach. BPin supine at end of tx session: 141/71 Gait Assessment Gait Gait Assistance Required: Standby Assistance,Contact Guard Assist Distance (Feet) 40 Able to Maintain Weight Bearing Status Yes During Gait Assistive Devices Assistive Device None,Gait Belt Orthotic/Prosthetic Devices or Brace: No Factors Limiting Gait Function Factors Limiting Gait Function Decreased Activity Tolerance, Decreased Strength Comments Gait Comments pls refer to mobility section for details PT-Balance Assessment Sitting Balance and Reactions Static Sitting Balance Ability Normal Dynamic Sitting Balance Ability Normal Standing Balance and Reactions Static Standing Balance Ability Good Dynamic Standing Balance Ability Good Device Used without AD M5 PT-IP Objective Assessments Start: 11/21/20 17:54 Freq: NEEDED Status: Active Protocol: Document 11/21/20 14:38 AB (Rec: 11/21/20 18:06 AB [id number]) Orientation Orientation/Cognition Level of Alertness Alert Orientation Name,Place,Situation Safety Awareness Understands Safety Issues Memory Description No Deficits Noted Gross Range of Motion Lower Extremity ROM Assessment Within Functional Limits Strength Lower Extremity Strength Assessment Within Functional Limits Coordination Assessment Gross Coordination Gross Coordination WNL Sensation Assessment Sensation Gross Sensation WNL Muscle Tone Muscle Tone WNL Yes M6 PT-IP Treatment Start: 11/21/20 17:54 Freq: NEEDED Status: Active Protocol: Document 11/21/20 14:38 AB (Rec: 11/21/20 18:06 AB [id number]) Physical Therapy Treatment Education Education Provided Safety M7 PT-IP Assessment and Plan Start: 11/21/20 17:54 Freq: NEEDED Status: Active Protocol: Document 11/21/20 14:38 AB (Rec: 11/21/20 18:06 AB [id number]) PT Summary Assessment and Plan Potential Rehabilitation Potential Good Status of Condition at Evaluation Stable Summary Impairments Pain,ROM,Strength,Balance,Bed Mobility,Transfers,Gait, Activity Tolerance Assessment Summary pt requiring SBA to CGA with mobility and ambulation without AD. No c/o dizziness/ lightheadedness and BP stable during PT session. will continue to assess progress. Goals Bed Mobility Goal Independent Transfer Goal Independent Gait Goal Independent Gait Distance 250 Days to Meet Goals 3 Frequency of Treatment Frequency Of Treatment Once a Day Treatment Plan Physical Therapy Treatment Plan Bed Mobility Training,Transfer Training,Gait Training, Therapeutic Exercise,Balance Retraining,Discharge Planning, Neuromuscular Re-ed, Coordination Retraining Precautions Other Precautions BP Recommendations To Nursing Amount of Assist Needed 1 Person Assist Discharge Recommendations PT Discharge Recommendations Home with Assistance Transportation Needs at Discharge Private Vehicle
[2020-11-21] MEDS: CALCIUM CARB/VIT D3 500/200 TABLET 1 EACH PO (20:56)
[2020-11-21] MEDS: QUETIAPINE 25 MG TABLET 50 MG PO (20:57)
[2020-11-21] MEDS: FISH OIL 1,000 MG CAPSULE 1000 MG PO (21:00)
[2020-11-22 05:00] VITALS: BP 123/67; PULSE 58; RESP 18; TEMP 36.6; O2SAT 93
--- NOTE | 2020-11-22 05:02 | PC.NURSE ---
Patient cried out in the night 3-4 times. Sometimes yelling out for help. Patient was always asleep during these times. Would wake patient, and she reoriented well, went back to sleep. Did not remember nightmares.
[2020-11-22 05:43] LABS: BUN Creatinine Ratio 19.3 (6-22); Blood Urea Nitrogen 17 mg/dL (7-17); Calcium 7.9 mg/dL (8.4-10.2); Carbon Dioxide 29 mmol/L (22-32); Chloride 110 mmol/L (98-107); Estimated Glomerular Filt Rate > 60.0 mL/min (>60); Glucose 94 mg/dL (80-110); HEMOLYSIS < 15 (0-50); Potassium 4.4 mmol/L (3.4-5.1); Sodium 138 mmol/L (137-145)
[2020-11-22 05:44] LABS: Add Manual Diff / Slide Review NO; Basophils Absolute Auto 100 /uL (0-100); Basophils Percent Auto 1.4 % (0-2); Eosinophils Absolute Auto 200 /uL (0-450); Eosinophils Percent Auto 3.6 % (2-4); Hematocrit 25.3 % (36-46); Hemoglobin 8.2 g/dL (12.0-16.0); Lymphocytes Absolute Auto 1100 /uL (1100-4500); Lymphocytes Percent Auto 19.2 % (25-40); Mean Corpuscular HGB Conc 32.3 % (30-36); Mean Corpuscular Hemoglobin 29.9 PG (26-34); Mean Corpuscular Volume 92.8 fL (80-100); Monocytes Absolute Auto 500 /uL (0-900); Monocytes Percent Auto 8.7 % (3-14); Neutrophils Absolute Auto 3700 /uL (1500-7000); Neutrophils Percent Auto 67.1 % (50-75); Platelet Count 321 X10^3/uL (150-400); Red Blood Cell Count 2.73 X10^6/uL (4.0-5.2); Red Cell Distribution Width 16.9 % (11.6-14.8); White Blood Cell Count 5.5 X10^3/uL (4.5-11.0)
[2020-11-22 05:52] LABS: NT-proBNP (BNP-Adult 18+) 1670 pg/mL (<450)
[2020-11-22] MEDS: PANTOPRAZOLE DR 40 MG TABLET PO (06:49)
[2020-11-22 07:38] VITALS: BP 105/49; PULSE 59; RESP 17; TEMP 36.8; O2SAT 96
[2020-11-22] MEDS: FISH OIL 1,000 MG CAPSULE 1000 MG PO ×2 (09:34→21:00)
[2020-11-22] MEDS: VENLAFAXINE ER 75 MG CAP 150 MG PO (09:34)
[2020-11-22] MEDS: CHOLECALCIFEROL (VITAMIN D3) 1,000 UNIT TABLET 2000 UNIT PO (09:34)
[2020-11-22] MEDS: LORazepam 0.5 MG TABLET PO (09:34)
[2020-11-22] MEDS: CALCIUM CARB/VIT D3 500/200 TABLET 1 EACH PO ×2 (09:34→21:00)
[2020-11-22] MEDS: PANTOPRAZOLE 40 MG VIAL IV (09:35)
[2020-11-22] MEDS: FUROSEMIDE 20 MG/2 ML VIAL IV (09:35)
[2020-11-22] MEDS: OCTREOTIDE 500 MCG in SODIUM CHLORIDE 0.9% 100 ML 10.1 ML IV (09:45)
[2020-11-22] MEDS: SODIUM CHLORIDE 0.9% 1,000 ML 42 ML IV (09:47)
--- NOTE | 2020-11-22 11:38 | PM.PN.1 ---
Subjective Subjective Date Patient Seen: 11/22/20 Time Patient Seen: 11:38 Interval history: post procedure EGD Exam Vital Signs (past 8 hours): - 11/22/20 05:00 11/22/20 07:38 Temperature 97.9 F 98.3 F Pulse Rate 58 L 59 L Respiratory Rate 18 17 Blood Pressure 123/67 105/49 L Pulse Oximetry 93 96 Oxygen Delivery Method Room Air Oxygen Flow Rate 0 Narrative Exam Narrative: patient sleeping, improved skin color. No active GI bleed clinicallly Objective Labs Result Diagrams: 11/22/20 05:15 11/22/20 05:15 Labs: Laboratory Results - last 24 hr 11/22/20 11/22/20 05:15 05:15 WBC 5.5 RBC 2.73 L Hgb 8.2 L Hct 25.3 L MCV 92.8 MCH 29.9 MCHC 32.3 RDW 16.9 H Plt Count 321 Neut % (Auto) 67.1 Lymph % (Auto) 19.2 L [place] % (Auto) 8.7 Eos % (Auto) 3.6 Baso % (Auto) 1.4 Neut # (Auto) 3700 Lymph # (Auto) 1100 [place] # (Auto) 500 Eos # (Auto) 200 Baso # (Auto) 100 Sodium 138 Potassium 4.4 Chloride 110 H Carbon Dioxide 29 BUN 17 Creatinine 0.88 Estimated GFR > 60.0 BUN/Creatinine Ratio 19.3 Glucose 94 Calcium 7.9 L NT-Pro-B Natriuret Pep 1670 H PFSH Medical History Depression Surgical History H/O: hysterectomy Hx of appendectomy Social History household members: none Smoking Status: Former smoker alcohol intake: former substance use type: does not use Assessment & Plan Assessment & Plan narrative: No active bleeding at gastric polypectomy site, no ulcer or varicousities. I think the octreotide can be stopped since we have eliminated portal hypertension as a potential reason. Recommend colonoscopy to complete workup. If that is negative, then we can assume she has a post polypectomy bleed that resolved on it's own.
[2020-11-22 12:04] VITALS: BP 115/65; PULSE 51; RESP 16; TEMP 36.7; O2SAT 97
--- NOTE | 2020-11-22 14:08 | PT.IPTN ---
Current Diagnoses Melena (11/21/20) Surgery Performed Operation Date: 11/21/20 12:15 Actual Procedures p Esophagogastroduodenoscopy - Alecia Ernandez MD Physical Therapy Treatment Note M2 PT-IP Current Condition Start: 11/21/20 17:54 Freq: NEEDED Status: Active Protocol: Document 11/21/20 14:38 AB (Rec: 11/21/20 18:06 AB [email or web address]) Physical Therapy Current Condition Current Condition Evaluation Date 11/21/20 Treatment Diagnosis anemia; GI bleed; difficulty in walking Onset Date 11/21/20 Precautions Other Precautions BP M3 PT-IP Subjective Start: 11/21/20 17:54 Freq: NEEDED Status: Active Protocol: Document 11/22/20 14:08 AB (Rec: 11/22/20 16:53 AB [id number]) Subjective Physical Therapy Visit Type Type Treatment Note Visit Start Time 14:08 Visit Stop Time 14:46 Total Visit Minutes 38 Number of COST CONSULTANT Visits 0 Physical Therapy Visit Comments Patient Comments pt agrees to do PT Therapy Pain Assessment Pain Present Pain Present Denied Pain M4 PT-IP Mobility and Gait Start: 11/21/20 17:54 Freq: NEEDED Status: Active Protocol: Document 11/22/20 14:08 AB (Rec: 11/22/20 16:53 AB [id number]) PT-Bed Mobility Assessment Supine to Sit Supine to Sit Standby Assistance Sit to Supine Sit to Supine Standby Assistance PT-Transfer Assessment Sit to and From Stand Sit to and from Stand Standby Assistance,Contact Guard Assistance,1 Person Assistance,Use of Upper Extremities Equipment Transfer Assistive Device None,Gait Belt Orthotic/Prosthetic Devices or Brace: No Transfers Transfer Destination Toilet Transfer Technique ambulated Transfer Ability Level of Assist Standby Assistance,Contact Guard Assistance,1 Person Assistance,Use of Upper Extremities Comments Mobility Comments pt supine in bed and agreed to do PT. pt completed supine to sit SBA. sit to stand SBA to CGA and requested to use the toilet. ambulated out of the toilet without AD SBA to CGA and was able to maintain standing SBA while completing grooming/handwashing. No c/o dizziness/lightheadedness. Noted IV leaking and informed nurse. Nurse managed IV. pt ambulated afterwards. ambulated ~ 300 ft without AD SBA and CGA. pt then requested to use the toilet again and ambulated to the toilet. pt wanted to sit on the toilet for a while. call light provided. informed nurse that pt is using the toilet and will ask for assistance when ready. Gait Assessment Gait Gait Assistance Required: Standby Assistance,Contact Guard Assist Distance (Feet) 300 Able to Maintain Weight Bearing Status Yes During Gait Assistive Devices Assistive Device None,Gait Belt Orthotic/Prosthetic Devices or Brace: No Gait Deviations General Gait Pattern Decreased Stride Length, Decreased Feet Clearance Factors Limiting Gait Function Factors Limiting Gait Function Decreased Strength,Poor Balance,Poor Safety Awareness M5 PT-IP Objective Assessments Start: 11/21/20 17:54 Freq: NEEDED Status: Active Protocol: Document 11/21/20 14:38 AB (Rec: 11/21/20 18:06 AB [id number]) Orientation Orientation/Cognition Level of Alertness Alert Orientation Name,Place,Situation Safety Awareness Understands Safety Issues Memory Description No Deficits Noted Gross Range of Motion Lower Extremity ROM Assessment Within Functional Limits Strength Lower Extremity Strength Assessment Within Functional Limits Coordination Assessment Gross Coordination Gross Coordination WNL Sensation Assessment Sensation Gross Sensation WNL Muscle Tone Muscle Tone WNL Yes M6 PT-IP Treatment Start: 11/21/20 17:54 Freq: NEEDED Status: Active Protocol: Document 11/22/20 14:08 AB (Rec: 11/22/20 16:53 AB [id number]) Physical Therapy Treatment Education Education Provided Safety M7 PT-IP Assessment and Plan Start: 11/21/20 17:54 Freq: NEEDED Status: Active Protocol: Document 11/22/20 14:08 AB (Rec: 11/22/20 16:53 AB [id number]) PT Summary Assessment and Plan Potential Rehabilitation Potential Good Summary Impairments Pain,ROM,Strength,Balance, Coordination,Cognition,Bed Mobility,Transfers,Gait, Activity Tolerance Progress Towards Goals Slow Progress due to Medical Issues Assessment Summary pt requiring SBA to CGA with mobility without AD. pt lives alone. Son is available to assist when needed but cannot stay with pt. Pt will need services. Goals Bed Mobility Goal Independent Transfer Goal Independent Gait Goal Independent Gait Distance 250 Days to Meet Goals 3 Frequency of Treatment Frequency Of Treatment Once a Day Treatment Plan Physical Therapy Treatment Plan Bed Mobility Training,Transfer Training,Gait Training, Therapeutic Exercise,Balance Retraining,Discharge Planning, Neuromuscular Re-ed, Coordination Retraining Precautions Other Precautions BP Recommendations To Nursing Amount of Assist Needed 1 Person Assist Discharge Recommendations PT Discharge Recommendations Home with Assistance Transportation Needs at Discharge Private Vehicle
--- NOTE | 2020-11-22 14:59 | PC.NURSE ---
Day shift: Pt had a formed black colored stool this afternoon. Sample was sent to lab at approx 1450.
[2020-11-22 15:46] VITALS: BP 124/70; PULSE 58; RESP 18; TEMP 36.3; O2SAT 99
--- NOTE | 2020-11-22 19:08 | PM.PN.1 ---
Subjective Subjective Date Patient Seen: 11/22/20 Time Patient Seen: 19:08 Interval history: Reviewed history and met with patient as well as discussed with surgery, Dr. Ernandez and discussed with GI pathologist Dr. Ghazal Isabel as well discussed with Gastroenterology Dr. Ross at [facility] and discussed with patient's son Beny. Patient tearful crying because the loss of her dog and that her sons are fighting. Patient feeling better today. She has still had black stools. She denies dizziness or lightheadedness in her energy is better. She is hungry this morning. She is not having a dull nausea or vomiting or diarrhea or abdominal pain. She is not having any chest pain or lightheadedness or dizziness. Exam Vital Signs (past 8 hours): - 11/22/20 12:04 11/22/20 15:46 Temperature 98.1 F 97.3 F L Pulse Rate 51 L 58 L Respiratory Rate 16 18 Blood Pressure 115/65 124/70 Pulse Oximetry 97 99 Oxygen Delivery Method Room Air Oxygen Flow Rate 0 Narrative Exam Narrative: Afebrile vital signs are stable Patient is tearful and disheveled and just awakened. Her color is better. HEENT is unremarkable Neck is supple without adenopathy Chest: Clear to auscultation without wheezes rhonchi or crackles Cor: Regular rate and rhythm without murmur Distant S1-S2 Abdomen positive bowel sounds, soft, nontender, nondistended Extremities unremarkable but trace ankle and pedal edema Objective Labs Result Diagrams: 11/22/20 05:15 11/22/20 05:15 Labs: Laboratory Results - last 24 hr 11/22/20 11/22/20 05:15 05:15 WBC 5.5 RBC 2.73 L Hgb 8.2 L Hct 25.3 L MCV 92.8 MCH 29.9 MCHC 32.3 RDW 16.9 H Plt Count 321 Neut % (Auto) 67.1 Lymph % (Auto) 19.2 L [place] % (Auto) 8.7 Eos % (Auto) 3.6 Baso % (Auto) 1.4 Neut # (Auto) 3700 Lymph # (Auto) 1100 [place] # (Auto) 500 Eos # (Auto) 200 Baso # (Auto) 100 Sodium 138 Potassium 4.4 Chloride 110 H Carbon Dioxide 29 BUN 17 Creatinine 0.88 Estimated GFR > 60.0 BUN/Creatinine Ratio 19.3 Glucose 94 Calcium 7.9 L NT-Pro-B Natriuret Pep 1670 H PFSH Medical History Depression Surgical History H/O: hysterectomy Hx of appendectomy Social History household members: none Smoking Status: Former smoker alcohol intake: former substance use type: does not use Assessment & Plan Assessment & Plan narrative: 85-year-old female admitted for recurrent upper GI bleed. EGDs done on 11/12/2020 and 11/21/2020. EGD on 11/21/2020 showed no source of bleeding and biopsy site was stable without evidence of acute bleeding or evidence of recent bleeding. Patient received 2 units of packed red blood cells and has maintained her hemoglobin hematocrit. We will discontinue the octreotide Biopsy that was submitted from 11/12 20 was negative for malignancy. Plan was referred for repeat scope in 3 months. Will likely do that sooner. Will plan for colonoscopy in the a.m. to rule this out as a possible etiology for bleeding Will continue to trend blood counts. Will continue on PPI Will be NPO after midnight. Will do GoLYTELY prep Assessment 2. 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 Will continue to monitor. May need to increase her venlafaxine Assessment 3. Lower extremity edema with probable fluid overload Plan: Will go ahead and do 20 mg IV Lasix. Will continue to follow. If persists will consider echo. Appreciate surgery input
[2020-11-22] MEDS: PEG3350/SOD SULF,BICARB,CL/KCL 4,000 ML SOLUTION 2000 ML PO (19:28)
[2020-11-22 19:59] VITALS: BP 120/79; PULSE 60; RESP 16; TEMP 36.7; O2SAT 97
[2020-11-22] MEDS: QUETIAPINE 25 MG TABLET 50 MG PO (21:00)
[2020-11-22 23:40] VITALS: BP 137/76; PULSE 60; RESP 14; TEMP 36.4; O2SAT 96
[2020-11-23 04:44] VITALS: BP 164/75; PULSE 59; RESP 14; TEMP 36.5; O2SAT 97
[2020-11-23 06:35] LABS: Add Manual Diff / Slide Review NO; Basophils Absolute Auto 100 /uL (0-100); Basophils Percent Auto 0.7 % (0-2); Eosinophils Absolute Auto 200 /uL (0-450); Eosinophils Percent Auto 1.8 % (2-4); Hemoglobin 9.3 g/dL (12.0-16.0); Lymphocytes Absolute Auto 1000 /uL (1100-4500); Lymphocytes Percent Auto 10.9 % (25-40); Mean Corpuscular HGB Conc 33.2 % (30-36); Mean Corpuscular Hemoglobin 30.7 PG (26-34); Mean Corpuscular Volume 92.4 fL (80-100); Monocytes Absolute Auto 600 /uL (0-900); Monocytes Percent Auto 6.5 % (3-14); Neutrophils Absolute Auto 7500 /uL (1500-7000); Neutrophils Percent Auto 80.1 % (50-75); Platelet Count 346 X10^3/uL (150-400); Red Blood Cell Count 3.03 X10^6/uL (4.0-5.2); Red Cell Distribution Width 16.9 % (11.6-14.8); White Blood Cell Count 9.4 X10^3/uL (4.5-11.0)
[2020-11-23 06:43] LABS: INR 1.1 (0.9-1.3); Prothrombin Time 11.9 SECONDS (10.1-12.7)
[2020-11-23 06:45] LABS: PTT Partial Thromboplastin Tim 28 SECONDS (26.4-36.2)
[2020-11-23 06:48] LABS: BUN Creatinine Ratio 29.5 (6-22); Blood Urea Nitrogen 23 mg/dL (7-17); Calcium 8.4 mg/dL (8.4-10.2); Carbon Dioxide 29 mmol/L (22-32); Chloride 107 mmol/L (98-107); Estimated Glomerular Filt Rate > 60.0 mL/min (>60); Glucose 100 mg/dL (80-110); HEMOLYSIS < 15 (0-50); Potassium 4.3 mmol/L (3.4-5.1); Sodium 140 mmol/L (137-145)
[2020-11-23 06:56] LABS: NT-proBNP (BNP-Adult 18+) 987 pg/mL (<450)
--- NOTE | 2020-11-23 07:51 | P.PN_ITS ---
Subjective Subjective Date Patient Seen: 11/23/20 Time Patient Seen: 07:51 Interval history: Patient seen and evaluated this morning. Reviewed recent care and chart notes and does discussed care with Dr. Villegas. Patient did well overnight. Patient being prepped for colonoscopy. No complaints of significant pain. No significant high volume blood loss. Hemoglobin and hematocrit up a little bit this morning. Exam Vital Signs (past 8 hours): - 11/23/20 04:44 Temperature 97.7 F Pulse Rate 59 L Respiratory Rate 14 Blood Pressure 164/75 H Pulse Oximetry 97 Oxygen Delivery Method Room Air Oxygen Flow Rate 0 Narrative Exam Narrative: Gen.: Frail elderly appearing 85-year-old female HEENT: Pupils equal round and reactive or mucosa is moist Cardio: S1-S2 regular rate and rhythm Respiratory: Normal respiratory effort lungs are clear Abdomen: Soft nontender Extremities: Full range of motion Objective Labs Result Diagrams: 11/23/20 06:27 11/23/20 06:27 Labs: Laboratory Results - last 24 hr 11/23/20 11/23/20 11/23/20 06:27 06:27 06:27 WBC 9.4 D RBC 3.03 L Hgb 9.3 L Hct 28.0 L MCV 92.4 MCH 30.7 MCHC 33.2 RDW 16.9 H Plt Count 346 Neut % (Auto) 80.1 H Lymph % (Auto) 10.9 L [place] % (Auto) 6.5 Eos % (Auto) 1.8 L Baso % (Auto) 0.7 Neut # (Auto) 7500 H Lymph # (Auto) 1000 L [place] # (Auto) 600 Eos # (Auto) 200 Baso # (Auto) 100 PT 11.9 INR 1.1 APTT 28 Sodium 140 Potassium 4.3 Chloride 107 Carbon Dioxide 29 BUN 23 H Creatinine 0.78 Estimated GFR > 60.0 BUN/Creatinine Ratio 29.5 H Glucose 100 Calcium 8.4 NT-Pro-B Natriuret Pep 11/23/20 06:27 WBC RBC Hgb Hct MCV MCH MCHC RDW Plt Count Neut % (Auto) Lymph % (Auto) [place] % (Auto) Eos % (Auto) Baso % (Auto) Neut # (Auto) Lymph # (Auto) [place] # (Auto) Eos # (Auto) Baso # (Auto) PT INR APTT Sodium Potassium Chloride Carbon Dioxide BUN Creatinine Estimated GFR BUN/Creatinine Ratio Glucose Calcium NT-Pro-B Natriuret Pep 987 H PFSH Medical History Depression Surgical History H/O: hysterectomy Hx of appendectomy Social History household members: none Smoking Status: Former smoker alcohol intake: former substance use type: does not use Assessment & Plan Assessment & Plan narrative: Acute blood loss anemia presumed source upper due to recent biopsy and concern for rebleeding. EGD 11/12 and 11/21 most recent EGDs showed no source of bleeding from previous biopsy site. Patient received 2 units of packed red blood cells. Patient will have evaluation with colonoscopy to rule out colon source of bleeding. To make sure that this is not the source of ongoing loss of blood. Patient was prepped last night. Anticipate colonoscopy today. Hemoglobin hematocrit stable vital signs are stable. Patient on proton pump inhibitor. Continue procedure evaluation by General surgery. Anxiety depression. Complicating her care. Due to recent grief and family stressors. Hyperlipidemia chronic and stable. Heartburn patient is on a proton pump inhibitor Breast cancer history with treatment with radiation and lumpectomy Disposition plan today colonoscopy for further evaluation of bleeding. Trending hemoglobin hematocrit. Blood counts stable within 24 hours and normal colonoscopy would anticipate discharge.
[2020-11-23 08:00] VITALS: BP 140/70; PULSE 64; RESP 16; TEMP 36.6; O2SAT 98
[2020-11-23] MEDS: SODIUM CHLORIDE 0.9% 1,000 ML 42 ML IV (10:13)
--- NOTE | 2020-11-23 11:07 | P.PN_ITS ---
Subjective Subjective Date Patient Seen: 11/23/20 Time Patient Seen: 11:07 Interval history: Bowel prepped yesterday for intended colonoscopy today. Scant bowel movement dark stool. No abdominal pain Exam Vital Signs (past 8 hours): - 11/23/20 04:44 Temperature 97.7 F Pulse Rate 59 L Respiratory Rate 14 Blood Pressure 164/75 H Pulse Oximetry 97 Oxygen Delivery Method Room Air Oxygen Flow Rate 0 Narrative Exam Narrative: General elderly female alert oriented. Abdomen soft nontender Objective Labs Result Diagrams: 11/23/20 06:27 11/23/20 06:27 Labs: Laboratory Results - last 24 hr 11/23/20 11/23/20 11/23/20 06:27 06:27 06:27 WBC 9.4 D RBC 3.03 L Hgb 9.3 L Hct 28.0 L MCV 92.4 MCH 30.7 MCHC 33.2 RDW 16.9 H Plt Count 346 Neut % (Auto) 80.1 H Lymph % (Auto) 10.9 L [place] % (Auto) 6.5 Eos % (Auto) 1.8 L Baso % (Auto) 0.7 Neut # (Auto) 7500 H Lymph # (Auto) 1000 L [place] # (Auto) 600 Eos # (Auto) 200 Baso # (Auto) 100 PT 11.9 INR 1.1 APTT 28 Sodium 140 Potassium 4.3 Chloride 107 Carbon Dioxide 29 BUN 23 H Creatinine 0.78 Estimated GFR > 60.0 BUN/Creatinine Ratio 29.5 H Glucose 100 Calcium 8.4 NT-Pro-B Natriuret Pep 11/23/20 06:27 WBC RBC Hgb Hct MCV MCH MCHC RDW Plt Count Neut % (Auto) Lymph % (Auto) [place] % (Auto) Eos % (Auto) Baso % (Auto) Neut # (Auto) Lymph # (Auto) [place] # (Auto) Eos # (Auto) Baso # (Auto) PT INR APTT Sodium Potassium Chloride Carbon Dioxide BUN Creatinine Estimated GFR BUN/Creatinine Ratio Glucose Calcium NT-Pro-B Natriuret Pep 987 H PFSH Medical History Depression Surgical History H/O: hysterectomy Hx of appendectomy Social History household members: none Smoking Status: Former smoker alcohol intake: former substance use type: does not use Assessment & Plan Assessment & Plan narrative: 85-year-old female with anemia of unclear source. Undergone 2 upper endoscopies most recently several days ago which demonstrated benign gastric findings and no evidence of ongoing upper intestinal bleeding. Requires colonoscopy for further evaluation. Bowel prep yesterday was it inadequate for colonoscopy today. Re prep today. -clear liquid diet -bowel prep ordered -NPO after midnight -colonoscopy Friday 11/24
[2020-11-23 12:00] VITALS: BP 147/76; PULSE 61; RESP 16; TEMP 36.6; O2SAT 98
--- NOTE | 2020-11-23 12:01 | PT.IPTN ---
Current Diagnoses Melena (11/21/20) Surgery Performed Operation Date: 11/21/20 12:15 Actual Procedures p Esophagogastroduodenoscopy - Alecia Ernandez MD Physical Therapy Treatment Note M2 PT-IP Current Condition Start: 11/21/20 17:54 Freq: NEEDED Status: Active Protocol: Document 11/21/20 14:38 AB (Rec: 11/21/20 18:06 AB [id number]) Physical Therapy Current Condition Current Condition Evaluation Date 11/21/20 Treatment Diagnosis anemia; GI bleed; difficulty in walking Onset Date 11/21/20 Precautions Other Precautions BP M3 PT-IP Subjective Start: 11/21/20 17:54 Freq: NEEDED Status: Active Protocol: Document 11/23/20 11:52 AW (Rec: 11/23/20 12:01 AW [id number]) Subjective Physical Therapy Visit Type Type Treatment Note Visit Start Time 11:28 Visit Stop Time 11:52 Total Visit Minutes 24 Notes H/H improved to 9.3/28.0 today . Pt had insufficient prep for planned colonoscopy. Will prep again for procedure tomorrow. Number of BUSINESS MGR Visits 0 Physical Therapy Visit Comments Patient Comments Pt is willing to do PT Therapy Pain Assessment Pain Present Pain Present Denied Pain M4 PT-IP Mobility and Gait Start: 11/21/20 17:54 Freq: NEEDED Status: Active Protocol: Document 11/23/20 11:52 AW (Rec: 11/23/20 12:01 AW [id number]) PT-Bed Mobility Assessment Supine to Sit Supine to Sit Standby Assistance PT-Transfer Assessment Sit to and From Stand Sit to and from Stand Standby Assistance,Contact Guard Assistance,1 Person Assistance,Use of Upper Extremities Equipment Transfer Assistive Device None,Gait Belt Orthotic/Prosthetic Devices or Brace: No Transfers Transfer Destination Chair Transfer Technique ambulated Transfer Ability Level of Assist Standby Assistance,1 Person Assistance,Use of Upper Extremities Comments Mobility Comments Pt lying in bed as PT arrived. BP 142/68 HR 60. SBA for supine to sit. Pt stood SBA and ambulated in the halls a total of 350 feet. She began to fatigue toward the end of ambulation but did not require increased assist. On return to the room, pt sat on the chair SBA. She completed 5 reps of sit to stand with increasing weakness on final reps requiring CGA. BP 153/88 HR 66 after activity. Pt was left with call light and tray table in reach. Gait Assessment Gait Gait Assistance Required: Standby Assistance Distance (Feet) 375 Assistive Devices Assistive Device None,Gait Belt Orthotic/Prosthetic Devices or Brace: No Gait Deviations General Gait Pattern Decreased Stride Length, Decreased Feet Clearance Factors Limiting Gait Function Factors Limiting Gait Function Decreased Strength,Poor Balance,Poor Safety Awareness Comments Gait Comments pls refer to mobility section for details M5 PT-IP Objective Assessments Start: 11/21/20 17:54 Freq: NEEDED Status: Active Protocol: Document 11/21/20 14:38 AB (Rec: 11/21/20 18:06 AB [email or web address]) Orientation Orientation/Cognition Level of Alertness Alert Orientation Name,Place,Situation Safety Awareness Understands Safety Issues Memory Description No Deficits Noted Gross Range of Motion Lower Extremity ROM Assessment Within Functional Limits Strength Lower Extremity Strength Assessment Within Functional Limits Coordination Assessment Gross Coordination Gross Coordination WNL Sensation Assessment Sensation Gross Sensation WNL Muscle Tone Muscle Tone WNL Yes M6 PT-IP Treatment Start: 11/21/20 17:54 Freq: NEEDED Status: Active Protocol: Document 11/23/20 11:52 AW (Rec: 11/23/20 12:01 AW [id number]) Physical Therapy Treatment Education Education Provided Safety Other Treatments Other Treatment Performed Discussed energy conservation techniques with pt. M7 PT-IP Assessment and Plan Start: 11/21/20 17:54 Freq: NEEDED Status: Active Protocol: Document 11/23/20 11:52 AW (Rec: 11/23/20 12:01 AW [id number]) PT Summary Assessment and Plan Potential Rehabilitation Potential Good Summary Impairments Pain,ROM,Strength,Balance, Coordination,Cognition,Bed Mobility,Transfers,Gait, Activity Tolerance Progress Towards Goals Slow Progress due to Medical Issues Assessment Summary Pt has improving H/H today but is still reporting generalized weakness and requiring SBA with all mobility without AD. Pt would benefit from services to improve strength and independence in the home. Goals Bed Mobility Goal Independent Transfer Goal Independent Gait Goal Independent Gait Distance 250 Days to Meet Goals 3 Frequency of Treatment Frequency Of Treatment Once a Day Treatment Plan Physical Therapy Treatment Plan Bed Mobility Training,Transfer Training,Gait Training, Therapeutic Exercise,Balance Retraining,Discharge Planning, Neuromuscular Re-ed, Coordination Retraining Precautions Other Precautions BP Recommendations To Nursing Amount of Assist Needed Standby Assistance,1 Person Assist Discharge Recommendations PT Discharge Recommendations Home with Assistance,Home Health Transportation Needs at Discharge Private Vehicle
[2020-11-23] MEDS: PEG3350/SOD SULF,BICARB,CL/KCL 4,000 ML SOLUTION 4000 ML PO (12:30)
[2020-11-23] MEDS: VENLAFAXINE ER 75 MG CAP 150 MG PO (12:30)
[2020-11-23 16:09] VITALS: BP 146/79; PULSE 63; RESP 17; TEMP 36.4; O2SAT 99
--- NOTE | 2020-11-23 19:44 | PC.NURSE ---
REMINDING PT SEVERAL TIMES SHE NEED TO KEEP DRINKING GOLYTELY,CONTINUES TO DRINK, BUT SLOWING DOWN, CONTINUES TO HAVE LIQUID STOOLS BROWN
[2020-11-23 20:30] VITALS: BP 180/78; PULSE 51; RESP 17; TEMP 36.1; O2SAT 100
[2020-11-23] MEDS: QUETIAPINE 25 MG TABLET 50 MG PO (22:20)
[2020-11-23] MEDS: CALCIUM CARB/VIT D3 500/200 TABLET 1 EACH PO (22:20)
[2020-11-23] MEDS: FISH OIL 1,000 MG CAPSULE 1000 MG PO (22:20)
[2020-11-24] VITALS (11 sets, daily range): BP systolic 118–146; BP diastolic 57–78; PULSE 63–72; RESP 11–18; TEMP 35.9–37.3; O2SAT 96–100
--- NOTE | 2020-11-24 | PATH_ITS ---
[facility] Accession Number: [id number] . 01 Material submitted: . rectum - RECTAL BIOPSY . 02 Diagnosis: Rectum, Biopsy: Mild active colitis with focal features of mucosal prolapse; please see comment. Negative for granulomata, dysplasia or malignancy. MRV 11/27/2020 1002 Local . 02 Comment: The histologic findings raise a differential diagnosis including an acute self-limited colitis (infectious versus drug/toxin induced) versus solitary rectal ulcer. . 02 Electronically signed: . Eron Malcolm MD, PhD, Pathologist NPI- [id number] . 01 Gross description: . RECTAL BIOPSY: Received in formalin are 4 fragment(s) of [place], soft tissue measuring 0.4 x 0.4 x 0.3 cm to 0.2 x 0.1 x 0.1 cm submitted entirely in 1 cassette(s) /SUE 11/26/2020 0312 Local . 02 Pathologist provided ICD-10: K52.9 . 02 CPT . 003399 Performed at: 01 [facility] [address], [place], [place] [id number] MD Sourav Silveira MD Phone: [phone] Performed at: 02 [facility] [address] [place], [place] [id number] MD Ghazal Perez MD Phone: [phone]
[2020-11-24 05:35] LABS: Add Manual Diff / Slide Review NO; Basophils Absolute Auto 100 /uL (0-100); Eosinophils Absolute Auto 100 /uL (0-450); Eosinophils Percent Auto 1.4 % (2-4); Hematocrit 25.9 % (36-46); Hemoglobin 8.6 g/dL (12.0-16.0); Lymphocytes Absolute Auto 1100 /uL (1100-4500); Lymphocytes Percent Auto 16.5 % (25-40); Mean Corpuscular HGB Conc 33.3 % (30-36); Mean Corpuscular Hemoglobin 30.6 PG (26-34); Monocytes Absolute Auto 500 /uL (0-900); Monocytes Percent Auto 7.1 % (3-14); Neutrophils Absolute Auto 5000 /uL (1500-7000); Platelet Count 329 X10^3/uL (150-400); Red Blood Cell Count 2.82 X10^6/uL (4.0-5.2); Red Cell Distribution Width 16.5 % (11.6-14.8); White Blood Cell Count 6.8 X10^3/uL (4.5-11.0)
[2020-11-24 05:48] LABS: BUN Creatinine Ratio 21.7 (6-22); Blood Urea Nitrogen 15 mg/dL (7-17); Calcium 7.8 mg/dL (8.4-10.2); Carbon Dioxide 28 mmol/L (22-32); Chloride 110 mmol/L (98-107); Estimated Glomerular Filt Rate > 60.0 mL/min (>60); Glucose 87 mg/dL (80-110); HEMOLYSIS < 15 (0-50); Potassium 4.2 mmol/L (3.4-5.1); Sodium 140 mmol/L (137-145)
--- NOTE | 2020-11-24 10:18 | PM.PN.1 ---
Subjective Subjective Date Patient Seen: 11/24/20 Time Patient Seen: 10:18 Interval history: Did well overnight last night. Still working on good bowel clean out. Anticipating colonoscopy today. Unable to do yesterday probably due to inadequate prep. Patient is feeling fine no abdominal pain. Hemoglobin is slightly lower today. No pain. Vital signs are stable. Currently NPO. Exam Vital Signs (past 8 hours): - 11/24/20 04:04 Temperature 99.2 F Respiratory Rate 18 Blood Pressure 128/57 L Pulse Oximetry 97 Oxygen Delivery Method Room Air Oxygen Flow Rate 0 Narrative Exam Narrative: Gen.: Alert doing well. No complaints HEENT: Pupils equal round and reactive or mucosa is moist Cardio: S1-S2 regular rate and rhythm Respiratory: Normal respiratory effort Abdomen: Soft nontender Extremities: Full range of motion Objective Labs Result Diagrams: 11/24/20 05:15 11/24/20 05:15 Labs: Laboratory Results - last 24 hr 11/24/20 11/24/20 05:15 05:15 WBC 6.8 RBC 2.82 L Hgb 8.6 L Hct 25.9 L MCV 92.0 MCH 30.6 MCHC 33.3 RDW 16.5 H Plt Count 329 Neut % (Auto) 74.0 Lymph % (Auto) 16.5 L [place] % (Auto) 7.1 Eos % (Auto) 1.4 L Baso % (Auto) 1.0 Neut # (Auto) 5000 Lymph # (Auto) 1100 [place] # (Auto) 500 Eos # (Auto) 100 Baso # (Auto) 100 Sodium 140 Potassium 4.2 Chloride 110 H Carbon Dioxide 28 BUN 15 Creatinine 0.69 Estimated GFR > 60.0 BUN/Creatinine Ratio 21.7 Glucose 87 Calcium 7.8 L PFSH Medical History Depression Surgical History H/O: hysterectomy Hx of appendectomy Social History household members: none Smoking Status: Former smoker alcohol intake: former substance use type: does not use Assessment & Plan Assessment & Plan narrative: Acute blood loss anemia presumed source upper due to recent biopsy and concern for rebleeding. EGD 11/12 and 11/21 most recent EGDs showed no source of bleeding from previous biopsy site. Patient received 2 units of packed red blood cells. Patient will have evaluation with colonoscopy to rule out colon source of bleeding. To make sure that this is not the source of ongoing loss of blood. Patient prep in adequate yesterday trying again today for colonoscopy. Anxiety depression. Complicating her care. Due to recent grief and family stressors. Hyperlipidemia chronic and stable. Heartburn patient is on a proton pump inhibitor Breast cancer history with treatment with radiation and lumpectomy Disposition plan today colonoscopy for further evaluation of bleeding. If no significant source of bleeding found hemoglobin hematocrit is stable patient can be discharged back home.
[2020-11-24] MEDS: SODIUM CHLORIDE 0.9% 1,000 ML 42 ML IV (11:48)
[2020-11-24] MEDS: LACTATED RINGERS 1,000 ML 100 ML IV (12:14)
--- NOTE | 2020-11-24 12:16 | PM.PREOP ---
Pre-operative Note Interval Note History & Physical reviewed/Exam performed by Physician: Yes Changes to H&P: No
--- NOTE | 2020-11-24 12:49 | PM.OP.ENDO ---
Operative Date/Time/Diagnoses Date of procedure: 11/24/20 Time of procedure: 12:51 Pre-op diagnosis: anemia Post-op diagnosis: same Procedure & Clinicians Study performed: colonoscopy Same procedure as scheduled: Yes Indications: anemia Surgeon: Lalito Shea Procedure Notes Procedure in detail: Medications: Conscious sedation using 3mg IV midazolam and 125mcg IV of fentanyl The history and physical was performed/updated and the patient is ASA class is *. The procedure was discussed in detail with the patient. Potential risks complications including infection, bleeding, missed diagnosis, perforation, need for surgery, and were explained. Their questions were answered and informed consent was obtained. Patient was brought to the procedure room and placed standard monitoring equipment. The patient's vital signs were monitored continuously throughout the entire procedure. Prior to starting time-out was performed. The patient was placed in the left lateral recumbent position. Procedural sedation was administered. Examination began with a thorough inspection of the perianal area there was no evidence of fissures, fistulae, external hemorrhoids or cutaneous malignancy. The colonoscopy scope was then placed into the anal canal and was advanced to the cecum, which was identified by the ileocecal valve, the appendiceal orifice and the confluence of the taenia. The scope was then slowly withdrawn examining colon thoroughly in all directions, irrigating it of any residual stool. FINDINGS 1.No masses or polyps 2. No active hemorrhage or residual clot within the colon 3. 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 No barber palpable mass The patient tolerated the procedure well. They will be discharged once criteria are met. The prep was of good/excellent quality. The withdrawl time was 7 minutes. The sedation time was 24 minutes. Specimen(s): other (anal biopsy) Impression: no active or residual hemorrhage within the colon. Suspicous plaque within the anal canal. Post-procedure Plan for aftercare: no active hemorrhage can likely discharge when medically stable. Follow up biopsy result.
--- NOTE | 2020-11-24 13:05 | PT-IP ANOTE ---
Pt was NPO this morning and had planned to go to endoscopy suite for colonoscopy at 1030 but time got pushed back. Pt off the floor at this time. Will follow up with pt if she returns later this PM.
--- NOTE | 2020-11-24 13:17 | SUR.PHASEI ---
report called to the floor, Patient arousing spontaneously, Denies pain/nausea, declines PO intake
--- NOTE | 2020-11-24 13:32 | SUR.PHASEI ---
1323 returned to acute care, bed down and locked, call light within reach. VSS. Patient stable and comfortable. Family at bedside. No questions from patient, family, or staff.
--- NOTE | 2020-11-24 14:26 | CM.DPC ---
Addendum entered by Mihaela Martinez R.N. 11/24/20 15:58: Patient has discharge orders today. Went ahead and confirmed with Dr. Jorge, that [facility] can be resumed. Called Sierra at [facility] and confirmed that she was getting nursing, P.T, and O.T. and let her know about discharge. Faxed over DC Summary and resumption orders to [facility]. Copy of IMM given to patient, and her son is in room. She is appreciative of the care she has received. Original Note: DCP Cont: Met with patient in her room. Son, Beny, was also at bedside. Introduced self and role. Patient confirmed that she does reside in [place] alone, her son, Beny, who was in the room, resides in [place]. She confirmed that she does have [facility], nursing, and therapy, stated, she thinks that they know that she's in the hospital. Let her know that this systems planner will ensure that they are updated when she is discharged. Patient could possibly be discharged today. Nurse will contact Dr. Jorge, since she has been cleared by surgery. P: DCP to continue to follow. Patient could be discharged today if Dr. Jorge deems stable. Mihaela Martinez RN/[employer]
--- NOTE | 2020-11-24 15:15 | PT.IPTN ---
Current Diagnoses Melena (11/21/20) Surgery Performed Operation Date: 11/21/20 12:15 Actual Procedures p Esophagogastroduodenoscopy - Alecia Ernandez MD Operation Date: 11/24/20 11:00 Actual Procedures p Colonoscopy with biopsy - Lalito Shea MD Physical Therapy Treatment Note M2 PT-IP Current Condition Start: 11/21/20 17:54 Freq: NEEDED Status: Active Protocol: Document 11/21/20 14:38 AB (Rec: 11/21/20 18:06 AB [id number]) Physical Therapy Current Condition Current Condition Evaluation Date 11/21/20 Treatment Diagnosis anemia; GI bleed; difficulty in walking Onset Date 11/21/20 Precautions Other Precautions BP M3 PT-IP Subjective Start: 11/21/20 17:54 Freq: NEEDED Status: Active Protocol: Document 11/24/20 15:15 AW (Rec: 11/24/20 15:25 AW [id number]) Subjective Physical Therapy Visit Type Type Treatment Note Visit Start Time 14:59 Visit Stop Time 15:09 Total Visit Minutes 10 Notes H/H 8.6/25.9 today. Pt is now s/p colonoscopy and preparing for discharge. Her son, Beny, was in room but did not participate in tx session. Number of GUEST RELATIONS OFFICER Visits 0 Physical Therapy Visit Comments Patient Comments Pt is willing to do PT Therapy Pain Assessment Pain Present Pain Present Denied Pain M4 PT-IP Mobility and Gait Start: 11/21/20 17:54 Freq: NEEDED Status: Active Protocol: Document 11/24/20 15:15 AW (Rec: 11/24/20 15:25 AW [id number]) PT-Bed Mobility Assessment Supine to Sit Supine to Sit Standby Assistance PT-Transfer Assessment Sit to and From Stand Sit to and from Stand Standby Assistance,Use of Upper Extremities Equipment Transfer Assistive Device None,Gait Belt Transfers Transfer Destination Wheelchair Transfer Technique ambulated Transfer Ability Level of Assist Standby Assistance,1 Person Assistance,Use of Upper Extremities Comments Mobility Comments Pt lying in bed as PT arrived. SBA supine to sit. Pt stood, ambulated in the halls, and returned to the room to transfer to the toilet all SBA . She agreed to use the call orellana for assist when done with the toilet. Gait Assessment Gait Gait Assistance Required: Standby Assistance Distance (Feet) 300 Assistive Devices Assistive Device None,Gait Belt Orthotic/Prosthetic Devices or Brace: No Gait Deviations General Gait Pattern Decreased Stride Length, Decreased Feet Clearance Factors Limiting Gait Function Factors Limiting Gait Function Decreased Strength,Poor Balance Comments Gait Comments Pt completed 4-item DGI scoring 02/21 with single point deducted for gait speed. Functional Assessments Functional Tests Dynamic Gait Index 4-item DGI: 02/21 M5 PT-IP Objective Assessments Start: 11/21/20 17:54 Freq: NEEDED Status: Active Protocol: Document 11/21/20 14:38 AB (Rec: 11/21/20 18:06 AB [id number]) Orientation Orientation/Cognition Level of Alertness Alert Orientation Name,Place,Situation Safety Awareness Understands Safety Issues Memory Description No Deficits Noted Gross Range of Motion Lower Extremity ROM Assessment Within Functional Limits Strength Lower Extremity Strength Assessment Within Functional Limits Coordination Assessment Gross Coordination Gross Coordination WNL Sensation Assessment Sensation Gross Sensation WNL Muscle Tone Muscle Tone WNL Yes M6 PT-IP Treatment Start: 11/21/20 17:54 Freq: NEEDED Status: Active Protocol: Document 11/24/20 15:15 AW (Rec: 11/24/20 15:25 AW [id number]) Physical Therapy Treatment Education Education Provided Safety Other Treatments Other Treatment Performed Continued conversation about energy conservation. Also educated pt on importance of continued mobility. M7 PT-IP Assessment and Plan Start: 11/21/20 17:54 Freq: NEEDED Status: Active Protocol: Document 11/24/20 15:15 AW (Rec: 11/24/20 15:25 AW [id number]) PT Summary Assessment and Plan Potential Rehabilitation Potential Good Summary Impairments Pain,ROM,Strength,Balance, Coordination,Cognition,Bed Mobility,Transfers,Gait, Activity Tolerance Progress Towards Goals Progressing Toward Goals Assessment Summary Pt is s/p colonoscopy this PM and feeling good. Her mobility continues to improve. 4-item DGI score of 1112 suggests safe home and community ambulation. Goals Bed Mobility Goal Independent Transfer Goal Independent Gait Goal Independent Gait Distance 250 Days to Meet Goals 3 Frequency of Treatment Frequency Of Treatment Once a Day Treatment Plan Physical Therapy Treatment Plan Bed Mobility Training,Transfer Training,Gait Training, Therapeutic Exercise,Balance Retraining,Discharge Planning, Neuromuscular Re-ed, Coordination Retraining Precautions Other Precautions BP Recommendations To Nursing Amount of Assist Needed Standby Assistance Discharge Recommendations PT Discharge Recommendations Home with Assistance,Home Health Transportation Needs at Discharge Private Vehicle
--- NOTE | 2020-11-24 15:43 | P.DS_ITS ---
History of Present Illness History of Present Illness Chief complaint: Anemia Discharge Providers Provider Date of admission: 11/21/20 01:26 Discharge Date: 11/24/20 Primary care physician: Robyn Villegas MD Consults: 11/21/20 02:30 Consult to General Surgery Urgent Comment: Consulting Provider: Alecia Ernandez Reason for consultation: GI Bleed, endoscopy Has provider been notified: Yes 11/21/20 07:35 Consult to Discharge Planning Routine Comment: Consult to Physical Therapy Evaluate & Treat Comment: Physician Instructions: Evaluate and Treat 11/24/20 10:26 Consult to Physical Therapy Evaluate & Treat Comment: Physician Instructions: Evaluate and Treat Discharge provider: Jose Jorge MD Summary Hospital Course Discharge Diagnosis: Gastrointestinal bleed unknown source presumed upper Anxiety and depression Hyperlipidemia Breast cancer history Hospital procedures upper and lower endoscopy. 2 units packed red blood cells transfused. Hospital Course: Patient was admitted the hospital with anemia. Patient underwent endoscopic procedure outpatient with a biopsy. Patient presented with significant profound anemia requiring packed red blood cells. Re and discopathy was performed which showed healed biopsy site and no active source of bleeding. Due to patient's ongoing anemia recommendation for colonoscopy was done as well. Patient's underwent colonoscopy procedure with no significant active source of bleeding. The time of discharge patient Exam Vital Signs (past 8 hours): - 11/24/20 12:59 11/24/20 13:04 11/24/20 13:09 Temperature 98.4 F Pulse Rate 72 67 66 Respiratory Rate 11 L 15 12 Blood Pressure 142/71 H 142/72 H 135/65 Pulse Oximetry 98 99 98 11/24/20 13:14 11/24/20 13:19 11/24/20 13:35 Temperature 98.5 F 96.7 F L Pulse Rate 68 68 72 Respiratory Rate 16 16 16 Blood Pressure 118/70 140/64 135/67 Pulse Oximetry 96 99 100 11/24/20 14:05 11/24/20 14:35 11/24/20 15:15 Temperature 97.3 F L 97.7 F 97.4 F L Pulse Rate 70 63 68 Respiratory Rate 16 16 16 Blood Pressure 146/66 H 143/72 H 146/78 H Pulse Oximetry 100 100 100 Oxygen Delivery Method Room Air Oxygen Flow Rate 0 Objective Labs Result Diagrams: 11/24/20 05:15 11/24/20 05:15 Labs: Laboratory Results - last 24 hr 11/24/20 11/24/20 05:15 05:15 WBC 6.8 RBC 2.82 L Hgb 8.6 L Hct 25.9 L MCV 92.0 MCH 30.6 MCHC 33.3 RDW 16.5 H Plt Count 329 Neut % (Auto) 74.0 Lymph % (Auto) 16.5 L [place] % (Auto) 7.1 Eos % (Auto) 1.4 L Baso % (Auto) 1.0 Neut # (Auto) 5000 Lymph # (Auto) 1100 [place] # (Auto) 500 Eos # (Auto) 100 Baso # (Auto) 100 Sodium 140 Potassium 4.2 Chloride 110 H Carbon Dioxide 28 BUN 15 Creatinine 0.69 Estimated GFR > 60.0 BUN/Creatinine Ratio 21.7 Glucose 87 Calcium 7.8 L PFSH Medical History Depression Surgical History H/O: hysterectomy Hx of appendectomy Social History household members: none Smoking Status: Former smoker alcohol intake: former substance use type: does not use Discharge Plan Discharge Plan Patient Disposition: Home Discharge orders & Medications Prescriptions: Continued quetiapine 25 mg tablet 50 mg PO QPM RF: 0 omeprazole 20 mg capsule,delayed release(DR/EC) 40 mg PO DAILY RF: 0 aspirin 81 mg Tablet,Chewable 81 mg PO DAILY Qty: 0 RF: 0 Calcium 600 + D(3) 600 mg calcium- 200 unit Capsule 600 mg PO BID Qty: 0 RF: 0 omega 5-llq-eke-fish oil [Fish Oil] 1,000 mg (120 mg-180 mg) Capsule 1,000 iu PO BID Qty: 0 RF: 0 cholecalciferol (vitamin D3) [Vitamin D3] 2,000 unit Capsule 1 cap PO DAILY RF: 0 flaxseed oil 1,000 mg Capsule 1 cap PO BID RF: 0 venlafaxine 37.5 mg capsule,extended release 24hr 150 mg PO QAM RF: 0 Follow up/Referrals: Robyn Villegas MD [Primary Care Provider] - Visit Report/Discharge Packet Instructions: Blood Transfusion Visit Report Forms: Patient Portal/API, Stroke Signs & Symptoms Discharge Data Primary Care Provider: Robyn Villegas
--- NOTE | 2020-11-24 17:05 | PC.NURSE ---
Discharge Note- Patient discharged per dr tesfaye. Discharge instructions and education reviewed with patient and signed. IV line removed and bandage applied. Tele monitor removed. Patient dressed self and packed up personal belongings. Patients son arrived. Patient left via wheelchiar with all personal belongings to private car at 1615.
[2020-11-24 18:47] LABS: H. Pylori Antigen Stool Negative (Negative)
== END 2020-11-24 16:15 | disposition home or self-care (01) | DRG 378 ==
LOC: ED 23:22 → AC 11-21 01:27
PROVIDERS: Student in an Organized Health Care Education/Training Program; Surgery; Admitting Provider Family Medicine; Emergency Provider Emergency Medicine; PCP Family Medicine; Referring Provider Emergency Medicine; Visit Provider Family Medicine
PROC: 0DJ08ZZ Inspection of Upper Intestinal Tract, Via Natural or Artificial Opening Endoscopic (ICD-10-PCS; CPT 43235; principal; 2020-11-21 12:15)
PROC: 0DJD8ZZ Inspection of Lower Intestinal Tract, Via Natural or Artificial Opening Endoscopic (ICD-10-PCS; CPT 45378; principal; 2020-11-24 11:00)
DX: K92.1 Melena (principal); D62 Acute posthemorrhagic anemia; K62.89 Other specified diseases of anus and rectum; F41.9 Anxiety disorder, unspecified; F32.9 Major depressive disorder, single episode, unspecified; Z87.891 Personal history of nicotine dependence; Z20.822 Contact with and (suspected) exposure to COVID-19
CPT/HCPCS: 36415; 36430; 43235; 45378; 80048; 80053; 83880; 85025; 85610; 85730; 86850; 86900; 86901; 87338; 87635; 93005; 96374; 96375; 97116; 97161; 97530; 99152; 99231; 99284; C9803; P9016; A9270; C9113; J1940; J2354; J2405

== ENCOUNTER → 2021-01-27 15:29 | Outpatient (CLI) | payer MEDICARE, OTHER, SELFPAY ==
[2020-11-21 02:53] VITALS: BMI 19.3
--- NOTE | 2021-01-27 15:33 | DI.US.S_ITS ---
PROCEDURE: US ABDOMEN COMPLETE INDICATIONS: UNSPECIFIED ABDOMINAL PAIN TECHNIQUE: Real-time scanning was performed of the abdominal and retroperitoneal organs, with image documentation. COMPARISON: None. FINDINGS: Liver: 1.9 x 1.2 x 0.9 cm shadowing focus in the right hepatic lobe, which may reflect a partially calcified hemangioma or granuloma. The liver otherwise demonstrates normal echotexture. The portal vein is patent. Gallbladder: No gallbladder wall thickening, pericholecystic fluid, or shadowing gallstones. Biliary ducts: Intrahepatic bile ducts are non-dilated. Extrahepatic bile duct caliber measures 4.3 mm. Normal is 6-7 mm or less in diameter, or 10 mm or less post-cholecystectomy. Pancreas: Visualized portions of the pancreas are sonographically normal. Spleen: Spleen is normal in size and homogeneous in echotexture. Kidneys: Kidneys are normal in size and echotexture. Right kidney measures 10.5 cm long; left kidney measures 8.5 cm long. No hydronephrosis or nephrolithiasis. No solid masses. Aorta: Visualized aorta is normal in caliber at less than 3 cm. Iliacs: Proximal common iliac arteries are normal in caliber at less than 2.5 cm. IVC: Intrahepatic inferior vena cava is patent. Miscellaneous: No free abdominal fluid. However, a 2.9 x 2.3 x 2.6 cm anechoic structure is seen in the right abdomen. IMPRESSION: 1. Cystic structure in the right abdomen, measuring up to 2.9 cm, of uncertain origin. Consider CT or MR imaging for further evaluation. 2. Atrophy of the left kidney versus incomplete visualization. Dictated by: Niraj Alfonso M.D. on 01/27/2021 at 16:58 Approved by: Niraj Alfonso M.D. on 01/27/2021 at 17:04
== END ==
PROVIDERS: PCP Family Medicine; Referring Provider Family Medicine; Visit Provider Family Medicine
DX: R10.9 Unspecified abdominal pain (principal); R19.00 Intra-abdominal and pelvic swelling, mass and lump, unspecified site
CPT/HCPCS: 76700

== ENCOUNTER → 2021-03-12 12:22 | Outpatient (CLI) | payer MEDICARE, OTHER, SELFPAY ==
[2020-11-21 02:53] VITALS: BMI 19.3
--- NOTE | 2021-03-12 | DI.MG.S_ITS ---
BILATERAL DIGITAL SCREENING MAMMOGRAM 3D/2D WITH CAD: 03/12/2021 CLINICAL: Routine screening. Family history of breast cancer. Breast cancer. Comparison is made to exams dated: 02/28/2020 mammogram, 02/02/2020 mammogram, 01/31/2019 mammogram, and 01/13/2018 mammogram - [facility]. The tissue of both breasts is heterogeneously dense. This may lower the sensitivity of mammography. Current study was also evaluated with a Computer Aided Detection (CAD) system. There are benign post operative findings in the left breast. No significant masses, calcifications, or other findings are seen in either breast. There has been no significant interval change. IMPRESSION: BENIGN There is no mammographic evidence of malignancy. A 1 year screening mammogram is recommended. This exam was interpreted at Station ID: [id number]. NOTE: For mammograms, a report in lay terms will be sent to the patient. Approximately 15% of breast malignancies will not be visualized mammographically. In the management of a palpable breast mass, a negative mammogram must not discourage biopsy of a clinically suspicious lesion. Electronically Signed By: Quinton hope/nirlai:03/12/2021 13:37:37 letter sent: Normal Exam ACR BI-RADS Category 2: Benign Finding(s) 3342F
== END ==
PROVIDERS: PCP Family Medicine; Referring Provider Family Medicine; Visit Provider Family Medicine
DX: Z12.31 Encounter for screening mammogram for malignant neoplasm of breast (principal); Z85.3 Personal history of malignant neoplasm of breast; Z80.3 Family history of malignant neoplasm of breast
CPT/HCPCS: 77063; 77067

== ENCOUNTER → 2021-07-04 14:00 | Outpatient (CLI) | payer MEDICARE, OTHER, SELFPAY ==
[2020-11-21 02:53] VITALS: BMI 19.3
== END ==
PROVIDERS: PCP Family Medicine; Referring Provider Family Medicine; Visit Provider Family Medicine
DX: M81.0 Age-related osteoporosis without current pathological fracture (principal)
CPT/HCPCS: 77080

== ENCOUNTER → 2022-04-28 10:55 | Outpatient (CLI) | payer MEDICARE, OTHER, SELFPAY ==
[2020-11-21 02:53] VITALS: BMI 19.3
--- NOTE | 2022-04-28 | DI.MG.S_ITS ---
BILATERAL DIGITAL SCREENING MAMMOGRAM 3D/2D WITH CAD: 04/28/2022 CLINICAL: Routine screening. Personal history of left breast cancer. Family history of breast cancer. Comparison is made to exams dated: 03/12/2021 mammogram, 02/28/2020 mammogram, 02/02/2020 mammogram, and 01/31/2019 mammogram - [facility]. Both breasts are heterogeneously dense, which may obscure small masses (category c / 51-75% glandular tissue). Current study was also evaluated with a Computer Aided Detection (CAD) system. There are benign calcifications in both breasts. There also are benign post operative findings in the left breast. No significant masses, calcifications, or other findings are seen in either breast. There has been no significant interval change. IMPRESSION: BENIGN There is no mammographic evidence of malignancy. A 1 year screening mammogram is recommended. This exam was interpreted at Station ID: [id number]. NOTE: For mammograms, a report in lay terms will be sent to the patient. Approximately 15% of breast malignancies will not be visualized mammographically. In the management of a palpable breast mass, a negative mammogram must not discourage biopsy of a clinically suspicious lesion. Electronically Signed By: Gary castillo/nirali:04/28/2022 17:41:34 letter sent: Normal Exam ACR BI-RADS Category 2: Benign Finding(s) 3342F
== END ==
PROVIDERS: PCP Family Medicine; Referring Provider Family Medicine; Visit Provider Family Medicine
DX: Z12.31 Encounter for screening mammogram for malignant neoplasm of breast (principal); Z85.3 Personal history of malignant neoplasm of breast; Z80.3 Family history of malignant neoplasm of breast
CPT/HCPCS: 77063; 77067

== ENCOUNTER → 2023-07-15 15:05 | Outpatient (CLI) | payer MEDICARE, OTHER, SELFPAY ==
[2020-11-21 02:53] VITALS: BMI 19.3
--- NOTE | 2023-07-15 | DI.MRI.S_ITS ---
PROCEDURE: MR HEAD/BRAIN WO/W CON INDICATIONS: Transient cerebral ischemic attack, unspecified TECHNIQUE: Noncontrast axial T1 spin echo, axial T2 fast spin echo, sagittal and axial FLAIR, coronal T2 fast spin echo, axial gradient echo, axial diffusion and ADC through the brain. After the administration of contrast, axial and coronal and sagittal T1 spin echo with fat saturation through the brain. COMPARISON: [facility], CT, HEAD WITHOUT CONTRAST, 07/23/2011, 10:21. [facility], CT, CT HEAD/BRAIN WO CON, 11/11/2020, 13:11. FINDINGS: Image quality: Excellent. CSF spaces: Basal cisterns are patent. No extra-axial fluid collections. Ventricles are normal in size and shape. Brain: No midline shift. No intracranial bleeds or masses. No abnormal intracranial enhancement. There is cerebral volume loss for age. There is periventricular white matter chronic small vessel ischemic change. The brainstem appears normal. Diffusion-weighted images demonstrate no acute infarct. No chronic ischemic insults. Normal intravascular flow voids are present. Skull and face: Along the outer table of the skull, there is a bony excrescence seen superiorly and to the right of the midline, as on series 9, image 14, measuring up to 2.3 cm. No significant enhancement can be seen. Calvarial marrow is normal in signal. Orbits appear normal. Note is made of bilateral lens replacements. Sinuses: Sinuses and mastoids appear clear. IMPRESSION: No findings of acute or subacute infarction can be seen. No masses or abnormal enhancement can be seen. No prior territorial infarct can be seen. Note is made of age-appropriate brain parenchymal volume loss and chronic small vessel ischemic changes. 2.3 cm sclerotic focus along the outer table of the right superior calvarium. This is stable over time and considered to be a benign, incidental finding. Dictated by: Chi Martel M.D. on 07/15/2023 at 15:23 Approved by: Chi Martel M.D. on 07/15/2023 at 15:25
== END ==
PROVIDERS: PCP Family Medicine; Referring Provider Family Medicine; Visit Provider Family Medicine
DX: R41.89 Other symptoms and signs involving cognitive functions and awareness (principal); G45.9 Transient cerebral ischemic attack, unspecified
CPT/HCPCS: 70553; A9579

== ENCOUNTER → 2023-09-28 13:06 | Outpatient (CLI) | payer MEDICARE, OTHER, SELFPAY ==
[2020-11-21 02:53] VITALS: BMI 19.3
--- NOTE | 2023-09-28 13:07 | DI.MG.S_ITS ---
BILATERAL DIGITAL SCREENING MAMMOGRAM 3D/2D WITH CAD: 09/28/2023 CLINICAL: Routine screening. Personal history of left breast cancer. Comparison is made to exams dated: 04/28/2022 mammogram, 03/12/2021 mammogram, and 02/02/2020 mammogram - [facility]. Both breasts are heterogeneously dense, which may obscure small masses (category c / 51-75% glandular tissue). Current study was also evaluated with a Computer Aided Detection (CAD) system. There are benign calcifications in both breasts. There also are benign post operative findings in the left breast. No significant masses, calcifications, or other findings are seen in either breast. There has been no significant interval change. IMPRESSION: BENIGN There is no mammographic evidence of malignancy. A 1 year screening mammogram is recommended. This exam was interpreted at Station ID: [id number]. NOTE: For mammograms, a report in lay terms will be sent to the patient. Approximately 15% of breast malignancies will not be visualized mammographically. In the management of a palpable breast mass, a negative mammogram must not discourage biopsy of a clinically suspicious lesion. Electronically Signed By: Quinton hope/nirali:09/28/2023 13:51:35 letter sent: Normal Exam ACR BI-RADS Category 2: Benign Finding(s) 3342F
== END ==
PROVIDERS: PCP Family Medicine; Referring Provider Family Medicine; Visit Provider Family Medicine
DX: Z12.31 Encounter for screening mammogram for malignant neoplasm of breast (principal); R92.333 Mammographic heterogeneous density, bilateral breasts
CPT/HCPCS: 77063; 77067